=== PATIENT | female | born 1955 | race American Indian/Alaskan Native ===

== ENCOUNTER 2016-07-22 00:53 | Emergency (ER) | payer MEDICAID ==
[2016-07-22 01:23] VITALS: BP 159/60
[2016-07-22 01:56] LABS: Basophils % (Auto) 1.1 % (0.0-1.8); Eosinophils % (Auto) 2.9 % (0.0-4.3); Hematocrit 38.3 % (30.3-42.9); Hemoglobin 12.4 gm/dl (10.1-14.3); Mean Corpuscular HGB Conc 32 % (30-34); Mean Corpuscular Volume 70 fl (79-97); Platelet Count 307 K/mm3 (140-440); Red Blood Count 5.47 M/mm3 (3.65-5.03); White Blood Count 9.7 K/mm3 (4.5-11.0)
[2016-07-22 02:10] LABS: Mean Corpuscular Hemoglobin 23 pg (28-32)
[2016-07-22 02:11] LABS: INR 0.94 (0.87-1.13); Partial Thromboplastin Time 31.1 Sec. (24.2-36.6)
[2016-07-22 02:15] LABS: Anion Gap 18 mmol/L; BUN/Creatinine Ratio 11.25; Blood Urea Nitrogen 9 mg/dL (7-17); Calcium 9.1 mg/dL (8.4-10.2); Carbon Dioxide 27 mmol/L (22-30); Chloride 99.6 mmol/L (98-107); Glucose 139 mg/dL (65-100); Potassium 3.9 mmol/L (3.6-5.0); Sodium 141 mmol/L (137-145)
[2016-07-22] MEDS ORDERED: TESSALON PERLES PO ONE (10:07)
[2016-07-22] MEDS ORDERED: MUCINEX ER PO ONE (10:07)
[2016-07-22] MEDS ORDERED: MOTRIN PO ONE ×2 (10:21→10:31)
--- NOTE | 2016-07-22 10:36 | XRay Report ---
Portable chest: There are coronary bypass changes with a normal-sized heart. No vascular congestion. The lungs are clear. No significant changes compared to prior study of June 14, 2016. Impression: No acute findings.
--- NOTE | 2016-07-22 10:39 | Emergency Department Report ---
HPI - General Chief Complaint: Dyspnea/Respdistress Time Seen by Provider: 07/22/16 10:06 - HPI HPI: The patient is a 60-year-old female who presents for evaluation of cough. The patient reports 3 days of a productive cough of clear white sputum, moderate to severe, worse with lying flat and at nighttime, associated with difficulty sleeping, sneezing, runny nose, and postnasal drip. The patient denies fever, chest pain, hemoptysis, cyanosis or pallor, redness of the eyes, purulent drainage or discharge from the ears, nose, or mouth, stridor, dysphonia, rash. She states that she has not been out of the country and has no known sick contacts. ED Past Medical Hx - Past Medical History Previous Medical History?: Yes Hx Hypertension: Yes Hx CVA: No Hx Heart Attack/AMI: Yes (denies heart attack,stated BLOCKAGE) Hx Congestive Heart Failure: No Hx Diabetes: No Hx Deep Vein Thrombosis: No Hx Pulmonary Embolism: No Hx GERD: No Hx Liver Disease: No Hx Renal Disease: No Hx Sickle Cell Disease: No Hx Arthritis: No Hx Headaches / Migraines: No Hx Seizures: No Hx Kidney Stones: No Hx Psychiatric Treatment: No Hx Asthma: No Hx COPD: No Hx Tuberculosis: No Hx HIV: No Additional medical history: CAD,HIGH CHOLESTEROL - Surgical History Past Surgical History?: Yes Hx Coronary Stent: No Hx Open Heart Surgery: Yes (01/27) Hx Pacemaker: No Hx Internal Defibrillator: No Hx Cholecystectomy: No Hx Appendectomy: No Hx Breast Surgery: No Additional Surgical History: Exploratory laparotomy with left hemicolectomy . RIGHT Carotid endarterectomy,PORT to right upper chest - Social History Smoking Status: Current Some Day Smoker Substance Use Type: None - Medications Home Medications: Home Medications Medication Instructions Recorded Confirmed Last Taken Type Aspirin [Aspirin BABY CHEW TAB] 81 mg PO QDAY 04/03/15 06/25/16 06/13/16 History Metoprolol [Lopressor TAB] 25 mg PO BID 02/16/16 06/25/16 06/14/16 History Clopidogrel [Plavix] 75 mg PO QDAY #30 tablet 06/14/16 06/25/16 Unknown Rx Cyclobenzaprine HCl [Flexeril 5 MG 5 mg PO TID PRN #10 tablet 06/14/16 06/25/16 Unknown Rx TAB] Simvastatin [Zocor TAB] 20 mg PO QHS #30 tablet 06/14/16 06/25/16 Unknown Rx Vit C/Ascorbate Ca/Ascorb Sod 1 tab PO DAILY 06/14/16 06/25/16 06/13/16 History [Vitamin C 500 mg/15 ml Liquid] HYDROcodone/APAP 5-325 [[place] 1 each PO Q6HR PRN #8 tablet 06/25/16 Unknown Rx 5/325] ALBUTEROL Inhaler [ProAir HFA 2 puff IH QID PRN #1 inhalation 07/22/16 Unknown Rx Inhaler] Azithromycin [Zithromax Z-NISHANT] 250 mg PO QDAY #6 tablet 07/22/16 Unknown Rx Benzonatate [Tessalon Perles] 100 mg PO Q8HR #20 capsule 07/22/16 Unknown Rx guaiFENesin [Mucinex] 600 mg PO Q6HR #20 tab.er.12h 07/22/16 Unknown Rx ED Review of Systems ROS: Stated complaint: SOB Other details as noted in HPI Constitutional: denies: fever ENT: denies: throat or neck pain Respiratory: reports cough, shortness of breath Cardiovascular: denies: chest pain Endocrine: denies unexplained weight loss or gain Gastrointestinal: denies: abdominal pain, nausea Genitourinary: denies: dysuria Musculoskeletal: denies: leg swelling Skin: denies: rash Neurological: denies: headache Hematological/Lymphatic: denies: easy bleeding or easy bruising Psych: denies sadness or hopelessness Physical Exam - Physical Exam Vital Signs: Vital Signs 07/22/16 07/22/16 01:13 09:44 Temperature 98.3 F Pulse Rate 66 Respiratory 20 20 Rate Blood Pressure 159/60 O2 Sat by Pulse 99 98 Oximetry Physical Exam: General: well-nourished, well-developed, no acute distress, with bronchitic cough Head: Normocephalic, atraumatic Eyes: normal sclera ENT: Bilateral nasal congestion is present, Mucous membranes are pink and moist Neck: trachea midline, neck supple, No neck stiffness, no cervical adenopathy Respiratory: Breath sounds equal bilaterally, no wheezing, rales, or rhonchi Cardio: S1 and S2 present, no murmurs, rubs, gallops, capillary refill is brisk Abdomen: Normoactive bowel sounds, soft abdomen, no rigidity, no guarding or rebound tenderness Chest WALL/Back: No tenderness to palpation of the chest wall, no CVA tenderness with percussion Musc: No pitting edema Skin: No rash Neuro: no facial drooping, normal speech Psych: Normal affect ED Course Vital Signs 07/22/16 07/22/16 01:13 09:44 Temperature 98.3 F Pulse Rate 66 Respiratory 20 20 Rate Blood Pressure 159/60 O2 Sat by Pulse 99 98 Oximetry ED Medical Decision Making - Lab Data Result diagrams: 07/22/16 01:42 07/22/16 01:42 - Medical Decision Making The patient was seen and examined by myself. The patient is placed on a cardiac cath rn and continuous pulse ox. On initial evaluation, the patient was found to be in no distress. Evaluation orders were placed. EKG was negative for findings suggestive of acute cardiac infarct. The patient is given Tessalon Perles for their cough and Mucinex for nasal congestion, and Tylenol Motrin for her pain. Lab results were not concerning. Chest x-ray is negative for pulmonary vessel congestion, pleural effusion, focal consolidation, or other acute cardio pulmonary disease process. The patient was reevaluated and reported that their symptoms were markedly improved. On reexamination the patient is found to have normal respiratory rate and O2 sat on pulse oximetry, with no costal retractions or diminishment of breath sounds on auscultation. The patient is stable for discharge with outpatient follow-up. The patient is given follow-up and return instructions. The patient expressed understanding and agreed with the plan. The patient is discharged in stable condition. Critical care attestation.: If time is entered above; I have spent that time in minutes in the direct care of this critically ill patient, excluding procedure time. ED Disposition Clinical Impression: Acute viral syndrome Acute bronchitis Qualifiers: Bronchitis organism: unspecified organism Qualified Code(s): J20.9 - Acute bronchitis, unspecified Disposition: DISCHARGED TO HOME OR SELFCARE Is pt being admited?: No Does the pt Need Aspirin: No Condition: Stable Instructions: Acute Bronchitis (ED), Viral Syndrome (ED) Referrals: PRIMARY CARE, [Primary Care Provider] - 3-5 Days Time of Disposition: 10:29
== END 2016-07-22 11:00 | disposition home or self-care (01) ==
LOC: ED 00:53
DX: B34.9 Viral infection, unspecified (principal); J20.9 Acute bronchitis, unspecified; I10 Essential (primary) hypertension; I25.2 Old myocardial infarction; E78.00 Pure hypercholesterolemia, unspecified; F17.200 Nicotine dependence, unspecified, uncomplicated; I25.10 Atherosclerotic heart disease of native coronary artery without angina pectoris; Z79.82 Long term (current) use of aspirin
CPT/HCPCS: 36415; 71010; 80048; 83880; 84484; 85025; 85610; 85730; 93005; 93010; 99285

== ENCOUNTER 2016-08-24 10:10 | Outpatient (CLI) | payer MEDICAID ==
--- NOTE | 2016-08-24 15:48 | Mammography Report ---
BILATERAL DIGITAL SCREENING MAMMOGRAM with CAD : 08/24/16 10:10:00 CLINICAL: Routine screening. COMPARISON:None available. She does not remember where she last had a mammogram. FINDINGS: The breasts are heterogeneously dense, which may obscure small masses.Numerous moles are marked on each breast. A few bilateral benign calcifications. No mass, architectural distortion or suspicious calcifications. A 1.6 cm right axillary lymph node has a relatively small fatty hilum and requires additional imaging. IMPRESSION: Questionable abnormal right axillary lymph node. BI-RADS CATEGORY: 0--Needs Additional Imaging RECOMMENDATION: Recall for ultrasound of the right breast and right axilla. COMMENT: Patient follow-up letters are generated by our [employer] application.
== END 2016-08-24 10:11 | disposition home or self-care (01) ==
LOC: SPVWC 10:10
DX: Z12.31 Encounter for screening mammogram for malignant neoplasm of breast (principal)
CPT/HCPCS: 77067; G0202

== ENCOUNTER 2016-10-06 08:50 | Outpatient (CLI) | payer MEDICAID ==
--- NOTE | 2016-10-06 09:33 | Ultrasound Report ---
RIGHT BREAST ULTRASOUND: 10/06/16 08:50:00 CLINICAL: Enlarged right axillary lymph node on screening mammogram. COMPARISON: 08/24/16 screening mammogram. FINDINGS: Ultrasound of the right breast(including all four quadrants and the retroareolar area) was performed. A benign cyst at 2 o'clock 5 cm from the nipple measures 6 x 5 x 4 mm and a retroareolar benign cyst measures 6 x 5 x 4 mm. No solid mass or suspicious shadowing. Ultrasound of the right axilla demonstrated a lymph node with minimal central fat measuring 8 x 6 x 8 mm and a lymph node with a small amount of central fat measuring 9 x 6 x 8 mm. No lymph node measures as large as the lymph node on the mammogram which measured 16 mm. IMPRESSION: Benign cysts and no suspicious finding. According to the patient, she recently had a carbuncle in her right axilla which has resolved. This would explain benign reactive lymph nodes in the right axilla. The dominant lymph node has gotten smaller since the recent mammogram. BI-RADS 2 - - Benign RECOMMENDATION: Routine mammographic screening in one year.
== END 2016-10-06 08:51 | disposition home or self-care (01) ==
LOC: SPVWC 08:50
PROVIDERS: ATTEND Internal Medicine Hematology & Oncology
DX: N60.01 Solitary cyst of right breast (principal); R59.9 Enlarged lymph nodes, unspecified

== ENCOUNTER 2016-10-18 12:48 | Emergency (ER) | payer MEDICAID ==
[2016-10-18 13:48] VITALS: BP 173/75
[2016-10-18 14:26] LABS: Bilirubin,Urine NEG (Negative); Blood,Urine NEG (Negative); Ketones,Urine NEG (Negative); Leukocyte Esterase,Urine NEG (Negative); Nitrite,Urine NEG (Negative); Protein,Urine <15 mg/dL mg/dL (Negative); Urobilinogen,Urine < 2.0 mg/dL (<2.0)
[2016-10-18 14:45] LABS: WBC,Urine < 1.0 /HPF (0.0-6.0)
--- NOTE | 2016-10-21 18:06 | ED Elopement Review ---
ED Pt Elopement review - Results review Lab results: Laboratory Tests 10/18/16 13:55 Urine Color Yellow Urine Turbidity Clear Urine pH 5.0 Ur Specific [place] 1.012 Urine Protein <15 mg/dl Urine Glucose (UA) Neg Urine Ketones Neg Urine Blood Neg Urine Nitrite Neg Urine Bilirubin Neg Urine Urobilinogen < 2.0 Ur Leukocyte Esterase Neg Urine WBC (Auto) < 1.0 Urine RBC (Auto) 2.0 U Epithel Cells (Auto) < 1.0 - Call Back decision Pt Call Back Decision: Pt to F/U with PMD
== END 2016-10-18 14:00 | disposition left against medical advice (07) ==
LOC: ED 12:48
DX: M54.5 Low back pain (principal); Z53.21 Procedure and treatment not carried out due to patient leaving prior to being seen by health care provider
CPT/HCPCS: 81001

== ENCOUNTER 2017-09-29 20:39 | Inpatient (IN) | payer MEDICAID ==
[2017-09-29 21:23] LABS: Basophils # (Auto) 0.1 K/mm3 (0.0-0.1); Basophils % (Auto) 0.9 % (0.0-1.8); Eosinophils # (Auto) 0.3 K/mm3 (0.0-0.4); Eosinophils % (Auto) 2.2 % (0.0-4.3); Hematocrit 40.1 % (30.3-42.9); Hemoglobin 12.9 gm/dl (10.1-14.3); Lymphocytes # (Auto) 2.6 K/mm3 (1.2-5.4); Lymphocytes % (Auto) 19.7 % (13.4-35.0); Mean Corpuscular HGB Conc 32 % (30-34); Mean Corpuscular Volume 70 fl (79-97); Monocytes % (Auto) 7.7 % (0.0-7.3); Platelet Count 274 K/mm3 (140-440); Red Blood Count 5.74 M/mm3 (3.65-5.03); Red Cell Distribution Width 16.5 % (13.2-15.2)
[2017-09-29 21:24] LABS: Mean Corpuscular Hemoglobin 23 pg (28-32)
[2017-09-29 21:41] LABS: BUN/Creatinine Ratio 15; Blood Urea Nitrogen 12 mg/dL (7-17); Calcium 9.7 mg/dL (8.4-10.2); Hemolysis Index 3
--- NOTE | 2017-09-30 00:04 | XRay Report ---
FINAL REPORT PROCEDURE: XR CHEST ROUTINE 2V TECHNIQUE: PA and lateral chest radiographs were obtained. CPT 68531 HISTORY: chest pain COMPARISON: No prior studies are available for comparison. FINDINGS: Heart: Normal. Mediastinum/Vessels: Multiple sternal wires are present. Lungs/Pleural space: Normal. Bony thorax: No acute osseous abnormality. Other: IMPRESSION: There is no evidence of an acute cardiopulmonary process..
--- NOTE | 2017-09-30 00:22 | Emergency Department Report ---
ED Chest Pain HPI - General Chief Complaint: Chest Pain Stated Complaint: CP Time Seen by Provider: 09/30/17 00:10 Source: patient, family Mode of arrival: Ambulatory Limitations: No Limitations - History of Present Illness Initial Comments: Mrs. Prieto is a 62 yo female with hx of 3 vessel CABG 2012 who presents with chest pain. 2 weeks. Worse today. She was evaluated by her cutter operator Dr. Montes in August. Mr. Montes scheduled her for outpatient nuclear stress test . She does not take nitro because she felt that she did not need it. She took aspirin today. MD Complaint: chest pain -: week(s) (2) Onset: during rest Pain Location: left chest Pain Radiation: none Severity: moderate Severity scale (0 -10): 7 Quality: tightness, pressure, other (burning) Improves With: nothing Worsens With: nothing - Related Data Home Medications Medication Instructions Recorded Confirmed Last Taken Aspirin [Aspirin BABY CHEW TAB] 81 mg PO QDAY 04/03/15 06/25/16 06/13/16 Metoprolol [Lopressor TAB] 25 mg PO BID 02/16/16 06/25/16 06/14/16 Vit C/Ascorbate Calcium,Sodium 1 tab PO DAILY 06/14/16 06/25/16 06/13/16 [Vitamin C 500 mg/15 ml Liquid] Previous Rx's Medication Instructions Recorded Last Taken Type Clopidogrel [Plavix] 75 mg PO QDAY #30 tablet 06/14/16 Unknown Rx Cyclobenzaprine HCl [Flexeril 5 MG 5 mg PO TID PRN #10 tablet 06/14/16 Unknown Rx TAB] Simvastatin [Zocor TAB] 20 mg PO QHS #30 tablet 06/14/16 Unknown Rx HYDROcodone/APAP 5-325 [[place] 1 each PO Q6HR PRN #8 tablet 06/25/16 Unknown Rx 5/325] ALBUTEROL Inhaler [ProAir HFA 2 puff IH QID PRN #1 inhalation 07/22/16 Unknown Rx Inhaler] Azithromycin [Zithromax Z-NISHANT] 250 mg PO QDAY #6 tablet 07/22/16 Unknown Rx Benzonatate [Tessalon Perles] 100 mg PO Q8HR #20 capsule 07/22/16 Unknown Rx guaiFENesin [Mucinex] 600 mg PO Q6HR #20 tab.er.12h 07/22/16 Unknown Rx Allergies Allergy/AdvReac Type Severity Reaction Status Date / Time No Known Allergies Allergy Verified 10/18/16 13:47 Heart Score - HEART Score History: Moderately suspicious EKG: Non-specific Age: 45-65 Risk factors: > 3 risk factors or hx of atherosclerotic disease Troponin: < normal limit HEART Score: 5 ED Review of Systems ROS: Stated complaint: CP Other details as noted in HPI Comment: All other systems reviewed and negative Respiratory: denies: cough Cardiovascular: chest pain ED Past Medical Hx - Past Medical History Previous Medical History?: Yes Hx Hypertension: Yes Hx CVA: No Hx Heart Attack/AMI: Yes (denies heart attack,stated BLOCKAGE) Hx Congestive Heart Failure: No Hx Diabetes: No Hx Deep Vein Thrombosis: No Hx Pulmonary Embolism: No Hx GERD: No Hx Liver Disease: No Hx Renal Disease: No Hx Sickle Cell Disease: No Hx Arthritis: No Hx Headaches / Migraines: No Hx Seizures: No Hx Kidney Stones: No Hx Psychiatric Treatment: No Hx Asthma: No Hx COPD: No Hx Tuberculosis: No Hx HIV: No Additional medical history: CAD,HIGH CHOLESTEROL - Surgical History Past Surgical History?: Yes Hx Coronary Stent: No Hx Open Heart Surgery: Yes (01/27 TRIPLE BYPASS) Hx Pacemaker: No Hx Internal Defibrillator: No Hx Cholecystectomy: No Hx Appendectomy: No Hx Breast Surgery: No Additional Surgical History: Exploratory laparotomy with left hemicolectomy . RIGHT AND LEFT Carotid endarterectomy,PORT to right upper chest - Social History Smoking Status: Never Smoker Substance Use Type: None - Medications Home Medications: Home Medications Medication Instructions Recorded Confirmed Last Taken Type Aspirin [Aspirin BABY CHEW TAB] 81 mg PO QDAY 04/03/15 06/25/16 06/13/16 History Metoprolol [Lopressor TAB] 25 mg PO BID 02/16/16 06/25/16 06/14/16 History Clopidogrel [Plavix] 75 mg PO QDAY #30 tablet 06/14/16 06/25/16 Unknown Rx Cyclobenzaprine HCl [Flexeril 5 MG 5 mg PO TID PRN #10 tablet 06/14/16 06/25/16 Unknown Rx TAB] Simvastatin [Zocor TAB] 20 mg PO QHS #30 tablet 06/14/16 06/25/16 Unknown Rx Vit C/Ascorbate Calcium,Sodium 1 tab PO DAILY 06/14/16 06/25/16 06/13/16 History [Vitamin C 500 mg/15 ml Liquid] HYDROcodone/APAP 5-325 [[place] 1 each PO Q6HR PRN #8 tablet 06/25/16 Unknown Rx 5/325] ALBUTEROL Inhaler [ProAir HFA 2 puff IH QID PRN #1 inhalation 07/22/16 Unknown Rx Inhaler] Azithromycin [Zithromax Z-NISHANT] 250 mg PO QDAY #6 tablet 07/22/16 Unknown Rx Benzonatate [Tessalon Perles] 100 mg PO Q8HR #20 capsule 07/22/16 Unknown Rx guaiFENesin [Mucinex] 600 mg PO Q6HR #20 tab.er.12h 07/22/16 Unknown Rx ED Physical Exam - General Limitations: No Limitations General appearance: alert, in no apparent distress - Head Head exam: Present: atraumatic, normocephalic - Eye Eye exam: Present: normal appearance - ENT ENT exam: Present: normal orophraynx, mucous membranes moist - Neck Neck exam: Present: normal inspection. Absent: tenderness, meningismus - Respiratory Respiratory exam: Present: normal lung sounds bilaterally. Absent: respiratory distress, wheezes, rales, rhonchi - Cardiovascular Cardiovascular Exam: Present: regular rate, normal rhythm, normal heart sounds. Absent: systolic murmur, diastolic murmur, rubs, gallop - GI/Abdominal GI/Abdominal exam: Present: soft, normal bowel sounds. Absent: distended, tenderness, guarding, rebound - Extremities Exam Extremities exam: Present: normal inspection - Back Exam Back exam: Present: normal inspection - Neurological Exam Neurological exam: Present: alert, oriented X3 - Psychiatric Psychiatric exam: Present: normal affect, normal mood - Skin Skin exam: Present: warm, dry, intact, normal color. Absent: rash ED Course Vital Signs 09/29/17 09/30/17 09/30/17 21:02 00:07 00:25 Temperature 98.6 F 98.0 F Pulse Rate 59 L 58 L Respiratory 17 Rate Blood Pressure 215/81 Blood Pressure 89/46 [Left] O2 Sat by Pulse 98 Oximetry OLIVA score - Oliva Score Age > 65: (0) No Aspirin use within the Past 7 Days: (1) Yes 3 or more CAD Risk Factors: (1) Yes 2 or more Angina events in past 24 hrs: (0) No Known CAD with more than 50% Stenosis: (0) No Elevated Cardiac Markers: (0) No ST Deviation Greater than 0.5mm: (0) No OLIVA Score: 2 ED Medical Decision Making - Lab Data Result diagrams: 09/29/17 21:15 09/29/17 21:15 Laboratory Results - last 24 hr 09/29/17 09/29/17 09/30/17 21:15 21:15 00:05 WBC 13.0 H RBC 5.74 H Hgb 12.9 Hct 40.1 MCV 70 L MCH 23 L MCHC 32 RDW 16.5 H Plt Count 274 Lymph % (Auto) 19.7 [place] % (Auto) 7.7 H Eos % (Auto) 2.2 Baso % (Auto) 0.9 Lymph # 2.6 [place] # 1.0 H Eos # 0.3 Baso # 0.1 Seg Neutrophils % 69.5 Seg Neutrophils # 9.0 H Sodium 139 Potassium 4.1 Chloride 95.4 L Carbon Dioxide 28 Anion Gap 20 BUN 12 Creatinine 0.8 Estimated GFR > 60 BUN/Creatinine Ratio 15 Glucose 132 H Calcium 9.7 Troponin T < 0.010 < 0.010 Vital Signs - 24 hr 09/29/17 09/30/17 09/30/17 21:02 00:07 00:25 Temperature 98.6 F 98.0 F Pulse Rate 59 L 58 L Respiratory 17 Rate Blood Pressure 215/81 Blood Pressure 89/46 [Left] O2 Sat by Pulse 98 Oximetry - Medical Decision Making Ms. Prieto presents with worsening chest pain for past 2 weeks. Hx of CAD s/p CABG. Admitted to hospitalist service for ACS. patient has asymptomatic mild hypotension in Ed. She took antihypertensive just prior to arrival to ED. Critical care attestation.: If time is entered above; I have spent that time in minutes in the direct care of this critically ill patient, excluding procedure time. ED Disposition Clinical Impression: ACS (acute coronary syndrome) Disposition: OP ADMIT IP TO THIS HOSP Is pt being admited?: Yes Does the pt Need Aspirin: No Condition: Stable Time of Disposition: 01:14
[2017-09-30] MEDS ORDERED: SODIUM CHLORIDE FLUSH SYRINGE 10 ML IV PRN (01:57)
[2017-09-30] MEDS ORDERED: TYLENOL PO PRN (01:57)
[2017-09-30] MEDS ORDERED: ZOFRAN IV PRN (01:57)
--- NOTE | 2017-09-30 02:02 | History and Physical Report ---
History of Present Illness Date of examination: 09/30/17 History of present illness: 62-year-old woman with a history of hypertension, coronary artery disease and hyperlipidemia was brought to the emergency room with complaints of chest pain for 2 weeks. Chest pain is in the left substernal area which she describes as a sharp, intermittent in nature lasting for a 1 hour, no radiation, intensity 7 /10. Denies nausea vomiting, diaphoresis and palpitation, shortness of breath. Patient is scheduled for a stress test on October 12 by the facilities specialist Review Of Systems: Constitutional: no weight loss Ears, eyes, nose, mouth and throat: no nasal congestion, no nasal discharge, no sinus pressure, blurry vision, diplopia Neck: No neck pain or rigidity. Cardiovascular: no chest pain, orthopnea, palpitations Respiratory: + shortness of breath, cough Gastrointestinal: abdominal pain, hematochezia Genitourinary : no dysuria, frequency , hematuria Musculoskeletal: no muscle ache Integumentary: no rash, no pruritis Neurological: no parathesias, focal weakness Endocrine: no cold or heat intolerance, no polyuria or polydipsia Hematologic/Lymphatic: no easy bruising, no easy bleeding, no gland swelling Allergic/Immunologic: no urticaria, no angioedema. PAST SURGICAL HISTORY: CABG, left CEA SOCIAL HISTORY: 1/3 pack of cigarettes a day, no alcohol or drugs FAMILY HISTORY: Coronary artery disease Medications and Allergies Allergies Allergy/AdvReac Type Severity Reaction Status Date / Time No Known Allergies Allergy Verified 10/18/16 13:47 Home Medications Medication Instructions Recorded Confirmed Last Taken Type Aspirin [Aspirin BABY CHEW TAB] 81 mg PO QDAY 04/03/15 06/25/16 06/13/16 History Metoprolol [Lopressor TAB] 25 mg PO BID 02/16/16 06/25/16 06/14/16 History Clopidogrel [Plavix] 75 mg PO QDAY #30 tablet 06/14/16 06/25/16 Unknown Rx Cyclobenzaprine HCl [Flexeril 5 MG 5 mg PO TID PRN #10 tablet 06/14/16 06/25/16 Unknown Rx TAB] Simvastatin [Zocor TAB] 20 mg PO QHS #30 tablet 06/14/16 06/25/16 Unknown Rx Vit C/Ascorbate Calcium,Sodium 1 tab PO DAILY 06/14/16 06/25/16 06/13/16 History [Vitamin C 500 mg/15 ml Liquid] HYDROcodone/APAP 5-325 [[place] 1 each PO Q6HR PRN #8 tablet 06/25/16 Unknown Rx 5/325] ALBUTEROL Inhaler [ProAir HFA 2 puff IH QID PRN #1 inhalation 07/22/16 Unknown Rx Inhaler] Azithromycin [Zithromax Z-NISHANT] 250 mg PO QDAY #6 tablet 07/22/16 Unknown Rx Benzonatate [Tessalon Perles] 100 mg PO Q8HR #20 capsule 07/22/16 Unknown Rx guaiFENesin [Mucinex] 600 mg PO Q6HR #20 tab.er.12h 07/22/16 Unknown Rx Active Meds: Active Medications Acetaminophen (Tylenol) 650 mg PO Q4H PRN PRN Reason: Pain MILD(1-3)/Fever >100.5/LEONG Enoxaparin Sodium (Lovenox) 30 mg SUB-Q QDAY YOANNA Morphine Sulfate (Morphine) 2 mg IV Q4H PRN PRN Reason: Pain, Moderate (4-6) Ondansetron HCl (Zofran) 4 mg IV Q8H PRN PRN Reason: Nausea And Vomiting Sodium Chloride (Sodium Chloride Flush Syringe 10 Ml) 10 ml IV BID YOANNA Sodium Chloride (Sodium Chloride Flush Syringe 10 Ml) 10 ml IV PRN PRN PRN Reason: LINE FLUSH Exam - Physical Exam Narrative exam: Gen. appearance: Patient lying in bed, no apparent distress HEENT: Normocephalic, atraumatic, pupils equally round and reactive to light, extraocular movement intact, and no sclericterus,. No JVD or thyromegaly or nodule,neck supple, no carotid bruit ,mucous membranes moist, no exudate or erythema Heart: S1, S2, regular rate and rhythm Lungs: Clear to auscultation bilaterally, breathing comfortable Abdomen: Positive bowel sounds, nontender, nondistended, no organomegaly Extremity: No edema, cyanosis, clubbing Skin: No rash, nodules, warm, dry Neuro: Oriented 3, cranial nerves II-12 intact, speech is fluent, motor and sensory intact - Constitutional Vitals: Temp Pulse Resp BP Pulse Ox 98.0 F 58 L 17 89/46 98 09/30/17 00:07 09/30/17 00:25 09/29/17 21:02 09/30/17 00:25 09/29/17 21:02 Results - Labs CBC & Chem 7: 09/29/17 21:15 09/29/17 21:15 Labs: Abnormal lab results 09/29/17 09/29/17 Range/Units 21:15 21:15 WBC 13.0 H (4.5-11.0) K/mm3 RBC 5.74 H (3.65-5.03) M/mm3 MCV 70 L (79-97) fl MCH 23 L (28-32) pg RDW 16.5 H (13.2-15.2) % [place] % (Auto) 7.7 H (0.0-7.3) % [place] # 1.0 H (0.0-0.8) K/mm3 Seg Neutrophils # 9.0 H (1.8-7.7) K/mm3 Chloride 95.4 L (98-107) mmol/L Glucose 132 H (65-100) mg/dL - Imaging and Cardiology EKG: image reviewed Chest x-ray: image reviewed Assessment and Plan Assessment Unstable Angina Coronary artery disease Hypertension Hyperlipidemia Plan Admit to to medicine Check cardiac enzymes, stress test, consult cardiology DVT prophylaxis
[2017-09-30] MEDS ORDERED: ALUM-MAG HYDROX-SIMETH 200-200-20MG/5ML PO ONE (02:05)
[2017-09-30] MEDS ORDERED: MORPHINE IV PRN (02:10)
[2017-09-30 02:39] LABS: Creatine Kinase MB 2.3 ng/mL (0.0-4.0)
[2017-09-30 08:10] LABS: Creatine Kinase MB 2.2 ng/mL (0.0-4.0)
[2017-09-30] MEDS ORDERED: LEXISCAN IV ONE ×2 (09:21→09:26)
[2017-09-30] MEDS ORDERED: LOVENOX SUB-Q SCH ×2 (10:00)
[2017-09-30] MEDS ORDERED: SODIUM CHLORIDE FLUSH SYRINGE 10 ML IV SCH (10:00)
--- NOTE | 2017-09-30 11:42 | Consultation ---
History of Present Illness Consult date: 09/30/17 Requesting physician: LIN BROWN Consult reason: chest pain History of present illness: The pt is a 62 YO female with a past medical history significant for CAD s/p CABG x4 in 01/2013, carotid artery disease s/p bilateral CEA, HTN, HLP, GIB, tobacco use. She is followed in our office by Dr. Becki Montes. She presented with c /o chest pain for the past 2 weeks. She describes her chest pain as a burning pain which is present under her left breast. The pain is nonexertional and nonradiating. The pain is sometimes relieved by Tums. She denies any SOB, palpitations, n/v, diaphoresis, dizziness or syncope. LHC 05/2013 showed patent bypass grafts. Echo done 03/2016 showed EF 55-60%. Lexiscan MPI stress test done 03/2016 was negative for significant ischemia. Past History Past Medical History: CAD, hypertension, hyperlipidemia, other (carotid artery disease) Past Surgical History: CABG, Other (bilateral CEA) Social history: smoking. denies: alcohol abuse, prescription drug abuse Medications and Allergies Allergies Allergy/AdvReac Type Severity Reaction Status Date / Time No Known Allergies Allergy Verified 10/18/16 13:47 Home Medications Medication Instructions Recorded Confirmed Last Taken Type Aspirin [Aspirin BABY CHEW TAB] 81 mg PO QDAY 04/03/15 06/25/16 06/13/16 History Metoprolol [Lopressor TAB] 25 mg PO BID 02/16/16 06/25/16 06/14/16 History Clopidogrel [Plavix] 75 mg PO QDAY #30 tablet 06/14/16 06/25/16 Unknown Rx Cyclobenzaprine HCl [Flexeril 5 MG 5 mg PO TID PRN #10 tablet 06/14/16 06/25/16 Unknown Rx TAB] Simvastatin [Zocor TAB] 20 mg PO QHS #30 tablet 06/14/16 06/25/16 Unknown Rx Vit C/Ascorbate Calcium,Sodium 1 tab PO DAILY 06/14/16 06/25/16 06/13/16 History [Vitamin C 500 mg/15 ml Liquid] HYDROcodone/APAP 5-325 [[place] 1 each PO Q6HR PRN #8 tablet 06/25/16 Unknown Rx 5/325] ALBUTEROL Inhaler [ProAir HFA 2 puff IH QID PRN #1 inhalation 07/22/16 Unknown Rx Inhaler] Azithromycin [Zithromax Z-NISHANT] 250 mg PO QDAY #6 tablet 07/22/16 Unknown Rx Benzonatate [Tessalon Perles] 100 mg PO Q8HR #20 capsule 07/22/16 Unknown Rx guaiFENesin [Mucinex] 600 mg PO Q6HR #20 tab.er.12h 07/22/16 Unknown Rx Active Meds: Active Medications Acetaminophen (Tylenol) 650 mg PO Q4H PRN PRN Reason: Pain MILD(1-3)/Fever >100.5/LEONG Enoxaparin Sodium (Lovenox) 40 mg SUB-Q QDAY@1000 YOANNA Morphine Sulfate (Morphine) 2 mg IV Q4H PRN PRN Reason: Pain, Moderate (4-6) Ondansetron HCl (Zofran) 4 mg IV Q8H PRN PRN Reason: Nausea And Vomiting Sodium Chloride (Sodium Chloride Flush Syringe 10 Ml) 10 ml IV BID YOANNA Sodium Chloride (Sodium Chloride Flush Syringe 10 Ml) 10 ml IV PRN PRN PRN Reason: LINE FLUSH Review of Systems Constitutional: no weight loss, no weight gain, no fever, no chills, no sweats Ears, nose, mouth and throat: no ear pain, no nose pain, no sinus pressure, no sinus pain Cardiovascular: chest pain, no orthopnea, no palpitations, no rapid/irregular heart beat, no edema, no syncope, no lightheadedness, no shortness of breath, no dyspnea on exertion Respiratory: no cough, no shortness of breath, no dyspnea on exertion, no congestion, no wheezing, no pain on inspiration Gastrointestinal: no abdominal pain, no nausea, no vomiting, no diarrhea, no constipation, no change in bowel habits Genitourinary Female: no pelvic pain, no flank pain, no dysuria, no urinary frequency, no urgency Musculoskeletal: no neck stiffness, no neck pain, no shooting arm pain, no arm numbness/tingling, no low back pain, no shooting leg pain, no leg numbness/ tingling, no redness of joints Integumentary: no rash, no pruritis, no redness, no sores, no wounds Neurological: no head injury, no paralysis, no weakness, no parathesias, no numbness, no tingling, no seizures, no syncope Psychiatric: no anxiety Endocrine: no cold intolerance, no heat intolerance Hematologic/Lymphatic: no easy bruising, no easy bleeding, no lymphadenopathy Allergic/Immunologic: no urticaria, no wheezing, no persistent infections Physical Examination Vital Signs Temp Pulse Resp BP Pulse Ox 98.6 F 59 L 17 215/81 98 09/29/17 21:02 09/29/17 21:02 09/29/17 21:02 09/29/17 21:02 09/29/17 21:02 General appearance: no acute distress HEENT: Positive: PERRL, Normocephaly, Mucus Membranes Moist Neck: Positive: neck supple, trachea midline Cardiac: Positive: Reg Rate and Rhythm, S1/S2 Lungs: Positive: clear to auscultation Neuro: Positive: Grossly Intact, Cranial Nerve 2-12 Intact Abdomen: Positive: Soft. Negative: Tender Skin: Positive: Clear. Negative: Rash, Wound Musculoskeletal: No Fluid Collection, No Pain, Normal Range of Motion Extremities: Absent: edema Results 09/29/17 21:15 09/29/17 21:15 Cardiac Enzymes 09/30/17 09/30/17 Range/Units 02:16 07:20 CK-MB (CK-2) 2.3 2.2 (0.0-4.0) ng/mL CBC 09/29/17 Range/Units 21:15 WBC 13.0 H (4.5-11.0) K/mm3 RBC 5.74 H (3.65-5.03) M/mm3 Hgb 12.9 (10.1-14.3) gm/dl Hct 40.1 (30.3-42.9) % Plt Count 274 (140-440) K/mm3 Lymph # 2.6 (1.2-5.4) K/mm3 [place] # 1.0 H (0.0-0.8) K/mm3 Eos # 0.3 (0.0-0.4) K/mm3 Baso # 0.1 (0.0-0.1) K/mm3 Comprehensive Metabolic Panel 09/29/17 Range/Units 21:15 Sodium 139 (137-145) mmol/L Potassium 4.1 (3.6-5.0) mmol/L Chloride 95.4 L (98-107) mmol/L Carbon Dioxide 28 (22-30) mmol/L BUN 12 (7-17) mg/dL Creatinine 0.8 (0.7-1.2) mg/dL Glucose 132 H (65-100) mg/dL Calcium 9.7 (8.4-10.2) mg/dL - Imaging and Cardiology Echo: report reviewed ( 03/2016 showed EF 55-60%. ) Cardiac cath: report reviewed (05/2013 showed patent bypass grafts. ) EKG: report reviewed, image reviewed EKG interpretations - Telemetry EKG Rhythm: Sinus Rhythm - EKG Sinus rhythms and dysrhythmias: sinus rhythm Repolarization changes or abnormalities: ST or T wave suggestive of ischemia ( anterolateral t-wave inversion) Assessment and Plan Assessment: Chest pain, atypical - [place] negative for AMI; ECG with NAF CAD s/p CABG x4 01/2013 HTN HLP Carotid artery disease s/p bilateral CEA H/o GIB Tobacco use - cessation encouraged Plan: S/p lexiscan MPI stress test this AM which was negative for ischemia, EF 75%. Echo with NAF. Obtain DDimer. Pending DDimer is WNL, pt may discharge home from cardiology standpoint. Follow up in our [place] office with Dr. Becki Montes on 10/14/2017 @ 3:30PM. The patient has been seen in conjunction with Dr. Gallagher who agrees with the assessment and plan of care.
--- NOTE | 2017-09-30 16:17 | Discharge Summary ---
Providers - Providers Date of Admission: 09/30/17 01:57 Date of discharge: 09/30/17 Attending physician: JOHNNY CASILLAS 09/30/17 01:57 Consult to Physician [CONS] Routine Comment: Consulting Provider: RUTHY YORK Physician Instructions: Reason For Exam: Primary care physician: ITZEL KEMP Hospitalization Reason for admission: atypical chest pain Condition: Stable Pertinent studies: Chest x-ray; no acute cardiopulmonary abnormality Exercise stress test; a definitive reversible ischemia, LVEF 72% Echocardiogram; patient has 50-60% Hospital course: 62-year-old female patient with significant history of hypertension coronary artery disease dyslipidemia who was admitted through emergency room with chest pain of 2 days' duration The patient was managed symptomatically evaluated by cardiology later underwent stress test which was negative for reversible ischemia and preserved left ventricular function Patient was symptomatically managed blood pressures closely monitored medications optimized Today patient is comfortable no new complaints vital signs are stable [id number] evaluation physical examination done by me that his chest is unremarkable Clear by cardiology, follow with primary care physician and cardiology per schedule Patient is hemodynamically and clinically stable at discharge Discharge diagnosis; --Atypical chest pain; probably secondary to gastroesophageal reflux disease Negative stress test --Gastroesophageal reflux disease --Hypertension --CAD status post CABG --Dyslipidemia --Carotid artery disease Disposition: DC- TO HOME OR SELFCARE Time spent for discharge: 31 min Core Measure Documentation - Palliative Care Palliative Care/ Comfort Measures: Not Applicable - Core Measures Any of the following diagnoses?: none Exam - Constitutional Vitals: Temp Pulse Resp BP Pulse Ox 98.3 F 59 L 18 124/57 98 09/30/17 14:06 09/30/17 14:06 09/30/17 14:06 09/30/17 14:06 09/30/17 14:06 General appearance: Present: no acute distress, well-nourished - EENT Eyes: Present: PERRL, EOM intact - Neck Neck: Present: supple, normal ROM - Respiratory Respiratory effort: normal Respiratory: negative: rales, rhonchi, wheezing - Cardiovascular Rhythm: regular Heart Sounds: Present: S1 & S2 - Extremities Extremities: no ischemia, pulses intact Peripheral Pulses: within normal limits - Abdominal General gastrointestinal: Present: soft, non-tender, non-distended - Integumentary Integumentary: Present: clear, warm - Musculoskeletal Musculoskeletal: strength equal bilaterally - Psychiatric Psychiatric: appropriate mood/affect, cooperative - Neurologic Neurologic: CNII-XII intact, moves all extremities Plan Activity: no restrictions Diet: other (cardiac diet) Special Instructions: smoking cessation Additional Instructions: Follow up [facility] cardiology [place] office with Dr. Becki York on 10/14/2017 @ 3:30PM. Follow up with: ITZEL KEMP MD [Primary Care Provider] - 7 Days RUTHY YORK MD [Staff Physician] - 10/14/17 Prescriptions: Famotidine [Pepcid] 20 mg PO BID #60 tablet
--- NOTE | 2017-09-30 16:39 | Treadmill Report ---
The resting images with technetium scan showed a homogeneous radioisotope activity except for a very small area of diminished radioisotope uptake in the mid anterior wall. On post-Lexiscan, the repeat images revealed similar distribution noted on resting scan. On gated scan, ejection fraction was noted to be 72% without any segmental motion abnormality. IMPRESSION: 1. This test is negative for ischemia. 2. Good left ventricular systolic function with EF of 72%. [facility]# [id number] SERGIO/EMERALD HAM
[2017-09-30 16:52] VITALS: BP 120/52
== END 2017-09-30 17:47 | disposition home or self-care (01) | DRG 392 ==
LOC: ED 20:39 → 4A 09-30 01:57
PROVIDERS: ADMIT Internal Medicine; ATTEND Internal Medicine
DX: K21.9 Gastro-esophageal reflux disease without esophagitis (principal); E78.5 Hyperlipidemia, unspecified; I10 Essential (primary) hypertension; Z95.1 Presence of aortocoronary bypass graft; Z79.82 Long term (current) use of aspirin; I25.10 Atherosclerotic heart disease of native coronary artery without angina pectoris; E78.00 Pure hypercholesterolemia, unspecified; Z82.49 Family history of ischemic heart disease and other diseases of the circulatory system; F17.200 Nicotine dependence, unspecified, uncomplicated; I65.29 Occlusion and stenosis of unspecified carotid artery
CPT/HCPCS: 36415; 71046; 78452; 80048; 82550; 82553; 84484; 85025; 85379; 93005; 93010; 93017; 93306; 96372; 96374; A9502; J1650; J2785

== ENCOUNTER 2017-10-24 12:10 | Emergency (ER) | payer MEDICAID ==
[2017-10-24 12:37] VITALS: BP 157/46
--- NOTE | 2017-10-24 15:46 | Emergency Department Report ---
Blank Doc - Documentation Documentation: 62-year-old female complaining of cough and cold symptoms since last week. Cough is productive and rattles in her chest but will not come up despite taken Mucinex. Patient complaining of intermittent wheezing episodes and currently uses an inhaler as needed. She denies fever. Taking Anjelica-D as well to help with allergies Focused physical exam Lungs clear to auscultation Heart regular rate and rhythm no Signs of edema Orders Chest x-ray Patient likely has bronchitis. Will be further evaluated by mid-level
--- NOTE | 2017-10-24 17:46 | XRay Report ---
FINAL REPORT PROCEDURE: XR CHEST ROUTINE 2V TECHNIQUE: PA and lateral chest radiographs were obtained. CPT 05101 HISTORY: Wheezing, cough. COMPARISON: Chest radiograph dated 09/29/2017. FINDINGS: Heart: Normal. Mediastinum/Vessels: Normal. Lungs/Pleural space: Slight worsening of perihilar indistinctness. Minimal thickening of the right fissure. Bony thorax: Ostial markers. Sternotomy. Mild osteopenia and degenerative changes of the spine. Clips in the soft tissues of the right neck. Other: IMPRESSION: Slight worsening of perihilar indistinctness with minimal thickening of the right fissure, consider mild volume overload/congestive heart failure.
[2017-10-24] MEDS ORDERED: ROCEPHIN IM ONE (18:17)
[2017-10-24] MEDS ORDERED: XYLOCAINE 1% MPF 5 mL INFILTRATI ONE (18:17)
--- NOTE | 2017-10-24 18:17 | Emergency Department Report ---
Upper Respiratory HPI - HPI Chief Complaint: Upper Respiratory Infection Stated Complaint: FLU LIKE SYMPTOMS Time Seen by Provider: 10/24/17 15:38 Duration: 2 weeks URI Symptoms: Rhinorrhea: No, Sore Throat: No, Ear Pain: No, Cough: Yes ( productive), Shortness of Breath: No, Sick Contacts: No, Unable to Take Fluids: No, Urine Output Abnormal: No, Listless Behavior: No Other History: This is a 62-year-old female nontoxic, well nourished in appearance, no acute signs of distress presents to the ED with c/o of productive cough and wheeaing x2 weeks. Patient describes productive cough as yellow mucus production. Patient agrees to sick contact with grandson which has been diagnosed with PNA. Patient denies any recent travels, long car, recent hospital stays. Patient denies any calf pain or calf tenderness. Patient denies any chest pain, short of breath, fever, chills, nausea, vomiting , hemoptysis, numbness, tingling, headache or stiff neck. Patient denies orthopena or paroxysmal nocturnal dyspnea. Patient denies any allergies. PMH includes headaches, hypertension, CAD, high cholesterol, bronchitis, triple bypass. She had a normal echocardiogram and a stress test last month by a rivet tester and has a rivet tester appointment this Tuesday. - Home Meds and Allergies Home Medications: Home Medications Medication Instructions Recorded Confirmed Last Taken Aspirin [Aspirin BABY CHEW TAB] 81 mg PO QDAY 04/03/15 06/25/16 06/13/16 Metoprolol [Lopressor TAB] 25 mg PO BID 02/16/16 06/25/16 06/14/16 Vit C/Ascorbate Calcium,Sodium 1 tab PO DAILY 06/14/16 06/25/16 06/13/16 [Vitamin C 500 mg/15 ml Liquid] Previous Rx's Medication Instructions Recorded Last Taken Type Clopidogrel [Plavix] 75 mg PO QDAY #30 tablet 06/14/16 Unknown Rx Cyclobenzaprine HCl [Flexeril 5 MG 5 mg PO TID PRN #10 tablet 06/14/16 Unknown Rx TAB] Simvastatin [Zocor TAB] 20 mg PO QHS #30 tablet 06/14/16 Unknown Rx HYDROcodone/APAP 5-325 [[place] 1 each PO Q6HR PRN #8 tablet 06/25/16 Unknown Rx 5-325 mg TAB] ALBUTEROL Inhaler [ProAir HFA 2 puff IH QID PRN #1 inhalation 07/22/16 Unknown Rx Inhaler] Azithromycin [Zithromax Z-NISHANT] 250 mg PO QDAY #6 tablet 07/22/16 Unknown Rx Benzonatate [Tessalon Perles] 100 mg PO Q8HR #20 capsule 07/22/16 Unknown Rx guaiFENesin [Mucinex] 600 mg PO Q6HR #20 tab.er.12h 07/22/16 Unknown Rx Famotidine [Pepcid] 20 mg PO BID #60 tablet 09/30/17 Unknown Rx ALBUTEROL Inhaler [ProAir HFA 2 puff IH QID PRN #1 inhalation 10/24/17 Unknown Rx Inhaler] Azithromycin [Zithromax Z-NISHANT] 250 mg PO DAILY #6 tablet 10/24/17 Unknown Rx Prednisone [predniSONE 10 mg 10 mg PO .TAPER #1 tab.ds.pk 10/24/17 Unknown Rx (6-Day Pack, 21 Tabs)] Allergies/Adverse Reactions: Allergies Allergy/AdvReac Type Severity Reaction Status Date / Time No Known Allergies Allergy Verified 10/18/16 13:47 ED Review of Systems ROS: Stated complaint: FLU LIKE SYMPTOMS Other details as noted in HPI Constitutional: denies: chills, fever Eyes: denies: eye pain, eye discharge, vision change ENT: denies: ear pain, throat pain Respiratory: cough, wheezing. denies: shortness of breath Cardiovascular: denies: chest pain, palpitations Endocrine: no symptoms reported Gastrointestinal: denies: abdominal pain, nausea, diarrhea Genitourinary: denies: urgency, dysuria, discharge Musculoskeletal: denies: back pain, joint swelling, arthralgia Skin: denies: rash, lesions Neurological: denies: headache, weakness, paresthesias Psychiatric: denies: anxiety, depression Hematological/Lymphatic: denies: easy bleeding, easy bruising ED Past Medical Hx - Past Medical History Previous Medical History?: Yes Hx Hypertension: Yes Hx CVA: No Hx Heart Attack/AMI: Yes (denies heart attack,stated BLOCKAGE) Hx Congestive Heart Failure: No Hx Diabetes: No Hx Deep Vein Thrombosis: No Hx Pulmonary Embolism: No Hx GERD: No Hx Liver Disease: No Hx Renal Disease: No Hx Sickle Cell Disease: No Hx Arthritis: No Hx Headaches / Migraines: No Hx Seizures: No Hx Kidney Stones: No Hx Psychiatric Treatment: No Hx Asthma: No Hx COPD: No Hx Tuberculosis: No Hx HIV: No Additional medical history: CAD,HIGH CHOLESTEROL, Bronchitis - Surgical History Past Surgical History?: Yes Hx Coronary Stent: No Hx Open Heart Surgery: Yes (01/27 TRIPLE BYPASS) Hx Pacemaker: No Hx Internal Defibrillator: No Hx Cholecystectomy: No Hx Appendectomy: No Hx Breast Surgery: No Additional Surgical History: Exploratory laparotomy with left hemicolectomy . RIGHT AND LEFT Carotid endarterectomy,PORT to right upper chest - Social History Smoking Status: Current Every Day Smoker Substance Use Type: Prescribed - Medications Home Medications: Home Medications Medication Instructions Recorded Confirmed Last Taken Type Aspirin [Aspirin BABY CHEW TAB] 81 mg PO QDAY 04/03/15 06/25/16 06/13/16 History Metoprolol [Lopressor TAB] 25 mg PO BID 02/16/16 06/25/16 06/14/16 History Clopidogrel [Plavix] 75 mg PO QDAY #30 tablet 06/14/16 06/25/16 Unknown Rx Cyclobenzaprine HCl [Flexeril 5 MG 5 mg PO TID PRN #10 tablet 06/14/16 06/25/16 Unknown Rx TAB] Simvastatin [Zocor TAB] 20 mg PO QHS #30 tablet 06/14/16 06/25/16 Unknown Rx Vit C/Ascorbate Calcium,Sodium 1 tab PO DAILY 06/14/16 06/25/16 06/13/16 History [Vitamin C 500 mg/15 ml Liquid] HYDROcodone/APAP 5-325 [[place] 1 each PO Q6HR PRN #8 tablet 06/25/16 Unknown Rx 5-325 mg TAB] ALBUTEROL Inhaler [ProAir HFA 2 puff IH QID PRN #1 inhalation 07/22/16 Unknown Rx Inhaler] Azithromycin [Zithromax Z-NISHANT] 250 mg PO QDAY #6 tablet 07/22/16 Unknown Rx Benzonatate [Tessalon Perles] 100 mg PO Q8HR #20 capsule 07/22/16 Unknown Rx guaiFENesin [Mucinex] 600 mg PO Q6HR #20 tab.er.12h 07/22/16 Unknown Rx Famotidine [Pepcid] 20 mg PO BID #60 tablet 09/30/17 Unknown Rx ALBUTEROL Inhaler [ProAir HFA 2 puff IH QID PRN #1 inhalation 10/24/17 Unknown Rx Inhaler] Azithromycin [Zithromax Z-NISHANT] 250 mg PO DAILY #6 tablet 10/24/17 Unknown Rx Prednisone [predniSONE 10 mg 10 mg PO .TAPER #1 tab.ds.pk 10/24/17 Unknown Rx (6-Day Pack, 21 Tabs)] ED Bronchiolitis Physical Exam - Exam General: Vital signs noted. No distress. Alert and acting appropriately. GENERAL: The patient is a well-developed, well-nourished in no apparent distress. Patient is alert and acting appropriately for age. Alert and oriented 3, no apparent distress, normal gait, atraumatic. HEENT: Head is normocephalic and atraumatic. PERRL, Extraocular muscles are intact. Pupils are equal, round, and reactive to light and accommodation. Nares appeared normal. Mouth is well hydrated and without lesions. Mucous membranes are moist. Posterior pharynx clear of any exudate or lesions. Mouth is well hydrated and without lesions. Tonsils not erythematous or swollen. Uvula midline. Tongue elevated. Mucous members are moist. Posterior pharynx clear, no exudate or lesions. Patent airways. NECK: Supple. No carotid bruits. No lymphadenopathy or thyromegaly.nontender. No meningitic signs are noted. LUNGS: Clear to auscultation. Non labor breathing. No intercostal retractions. Symmetrical with respiration, no wheezing, no rales, or crackles. HEART: Regular rate and rhythm without murmur, rubs or gallops. No reproducible. S1, S2 present, regular rate and rhythm without murmur, no rubs, no gallops. ABDOMEN: Soft, nontender, and nondistended. Positive bowel sounds. No hepatosplenomegaly was noted. No guarding or rebound tenderness, negative epigastric bruit. Negative psoas sign, negative ramires sign, negative McBurneys sign EXTREMITIES: Without any cyanosis, clubbing, rash, lesions or edema. Peripheral pulses intact. Capillary refill less than 2 seconds. Full range of motion bilaterally. NEUROLOGIC: Cranial nerves II through XII are grossly intact. Alert and oriented x 3. Normal gait. Symmetrical strength and sensation. Reflexes 2+ throughout. Cerebellar testing normal. GCS score of 15. PSYCHIATRIC: Normal affect with no suicidal or homicidal ideations. HEENT: No Pharyngeal Erythema, No Conjuctival Injection, No Dry Mucous Membranes , No Rhinorrhea Ear: Neither TM Bulge, Neither TM Erythema, Neither EAC Discharge Neck: No Adenopathy, No Rigidity Lungs: Yes Clear Lung Sounds, Yes Good Air Exchange, No Wheezes, No Stridor, No Cough, No Nasal Flaring, No Retractions, No Use of Accessory Muscles Heart: Yes Regular, No Murmur Abdomen: Yes Normal Bowel Sounds, No Tenderness, No Peritoneal Signs Skin: No Rash, No Eczema Neurologic: Alert and oriented, no deficits. Musculoskeletal: Unremarkable. ED Physical Exam - General Limitations: No Limitations ED Course Vital Signs 10/24/17 12:33 Temperature 98.4 F Pulse Rate 52 L Respiratory 18 Rate Blood Pressure 157/46 O2 Sat by Pulse 97 Oximetry - Reevaluation(s) Reevaluation #1: 10/24/17 18:26 Patient is speaking in full sentences with no signs of distress noted. - Consultations Consultation #1: 10/24/17 18:26 Patient has been consulted with Dr. Phillip about patient history, physical exam, and labs/xray report and examined and screened patient and agrees to ED plan of care and discharge plan of care. ED Medical Decision Making - Medical Decision Making 62-year-old female that presents with bronchitis. Patient is stable and was examined by me and Dr. Phillip. Chest x-ray obtained interpreted by the radiologist. Patient is notified of her chest x-ray report with no questions was noted by the patient. Patient did state that she has a follow-up appointment with a rivet tester in 3 days. Patient did have a normal stress test and a echocardiogram last month. There is no wheezing upon auscultation and no respiratory distress. Patient denies orthopnea or Paroxysmal nocturnal dyspnea. Patient is discharged with azithromycin, albuterol and prednisone. Patient was referred to Follow-up with a primary care doctor in 3-5 days or if symptoms worsen and continue return to emergency room as soon as possible. At time of discharge, the patient does not seem toxic or ill in appearance. No acute signs of distress noted. Patient agrees to discharge treatment plan of care. No further questions noted by the patient. This chart is dictated with using [employer] Critical care attestation.: If time is entered above; I have spent that time in minutes in the direct care of this critically ill patient, excluding procedure time. ED Disposition Clinical Impression: Bronchitis Disposition: DC-01 TO HOME OR SELFCARE Is pt being admited?: No Does the pt Need Aspirin: No Condition: Stable Instructions: Chronic Bronchitis (ED), Prednisone (By mouth), Azithromycin (By mouth), Albuterol (By breathing) Additional Instructions: Follow-up with a primary care doctor in 3-5 days or if symptoms worsen and continue return to emergency room as soon as possible. Prescriptions: ALBUTEROL Inhaler [ProAir HFA Inhaler] 2 puff IH QID PRN #1 inhalation PRN Reason: Shortness Of Breath Azithromycin [Zithromax Z-NISHANT] 250 mg PO DAILY #6 tablet Prednisone [predniSONE 10 mg (6-Day Pack, 21 Tabs)] 10 mg PO .TAPER #1 tab.ds.pk Referrals: LUCINA CHRISTOPHER [Other] - 3-5 Days PRIMARY CARE, [Referring] - 3-5 Days [facility] [Outside] - 3-5 Days Forms: Work/School Release Form(ED)
== END 2017-10-24 18:36 | disposition home or self-care (01) ==
LOC: ED 12:10
DX: J40 Bronchitis, not specified as acute or chronic (principal); I10 Essential (primary) hypertension; I25.2 Old myocardial infarction; I25.10 Atherosclerotic heart disease of native coronary artery without angina pectoris; E78.00 Pure hypercholesterolemia, unspecified; F17.200 Nicotine dependence, unspecified, uncomplicated; Z95.1 Presence of aortocoronary bypass graft
CPT/HCPCS: 71046; 96372; 99283; J0696

== ENCOUNTER 2018-08-16 10:01 | Outpatient (CLI) | payer MEDICAID ==
[2018-08-16 10:53] LABS: Blood Urea Nitrogen 12 mg/dL (7-17)
--- NOTE | 2018-08-16 14:35 | Cat Scan Report ---
FINAL REPORT EXAM: CT ANGIO NECK HISTORY: CTA CAROTID AND VERTEBRAL, OCCLUSION AND STENOSIS OF BILAT TECHNIQUE: Multiple axial neck sections after IV contrast Carotids/neck CT angiography with IV contrast PRIORS: None. FINDINGS: Left mid CCA calcified plaque with approximately 20 % diameter stenosis. Left ICA origin noncalcified plaque with approximately 10 % diameter stenosis. Right CCA diffusely patent. Noncalcified plaque right carotid bifurcation with approximately 10 % diameter stenosis. Right ICA origin noncalcified plaque with approximately 40 % diameter stenosis. Cerebrovascular atherosclerosis is manifest as calcified plaque in the distal ICA carotid siphons. Diffusely patent vertebral arteries. No evidence of aneurysm. There is no definite filling defect to suggest dissection. Nonspecific 17 mm cyst in right anterior submandibular region is subcutaneous in location and may be a sebaceous cyst. IMPRESSION: Simple appearing superficial subcutaneous cyst in anterior right submandibular region may be a sebace ous cyst Multifocal calcified and noncalcified atherosclerotic plaque Multifocal carotid stenosis, less than 50 % diameter
== END 2018-08-16 10:02 | disposition home or self-care (01) ==
LOC: CT 10:01
PROVIDERS: ATTEND Surgery Vascular Surgery
DX: I65.23 Occlusion and stenosis of bilateral carotid arteries (principal); K11.8 Other diseases of salivary glands; I10 Essential (primary) hypertension; E78.5 Hyperlipidemia, unspecified; E78.00 Pure hypercholesterolemia, unspecified; K21.9 Gastro-esophageal reflux disease without esophagitis; Z87.891 Personal history of nicotine dependence
CPT/HCPCS: 36415; 70498; 82565; 84520; Q9967

== ENCOUNTER 2018-09-04 14:05 | Outpatient (CLI) | payer MEDICAID ==
--- NOTE | 2018-09-04 15:28 | XRay Report ---
CERVICAL SPINE SERIES THREE VIEWS: 09/04/18 14:05:00 CLINICAL: Neck pain. FINDINGS: Diffuse increased density of the bones. Straightening of the C-spine and loss of the normal cervical lordosis. Normal vertebral body height and alignment from C1-C4. He has C5 and C6 vertebral bodies are significantly decreased in height. Alignment is normal. Disc space narrowing and large anterior and posterior osteophytes at C5-6 and C6-7. No fracture. The odontoid and C1 are intact. Bilateral surgical clips in the study of the carotid arteries. IMPRESSION: Nonspecific increased bone density which may be related to renal osteodystrophy or metastatic disease. Moderately severe degenerative disc disease at C5-6 and C6-7 with osteophytes.
== END 2018-09-04 14:06 | disposition home or self-care (01) ==
LOC: SPVIMAG 14:05
DX: M50.322 Other cervical disc degeneration at C5-C6 level (principal); M48.02 Spinal stenosis, cervical region; I10 Essential (primary) hypertension; E78.5 Hyperlipidemia, unspecified
CPT/HCPCS: 72040

== ENCOUNTER 2019-01-25 17:14 | Observation (INO) | payer MEDICAID ==
[2019-01-25] MEDS ORDERED: APRESOLINE IV ONE (17:39)
[2019-01-25 17:52] LABS: Basophils # (Auto) 0.1 K/mm3 (0.0-0.1); Basophils % (Auto) 0.9 % (0.0-1.8); Eosinophils # (Auto) 0.2 K/mm3 (0.0-0.4); Eosinophils % (Auto) 1.8 % (0.0-4.3); Hematocrit 38.9 % (30.3-42.9); Hemoglobin 12.7 gm/dl (10.1-14.3); Lymphocytes # (Auto) 1.9 K/mm3 (1.2-5.4); Lymphocytes % (Auto) 19.1 % (13.4-35.0); Mean Corpuscular HGB Conc 33 % (30-34); Mean Corpuscular Volume 73 fl (79-97); Monocytes # (Auto) 0.7 K/mm3 (0.0-0.8); Monocytes % (Auto) 6.9 % (0.0-7.3); Platelet Count 327 K/mm3 (140-440); Red Blood Count 5.35 M/mm3 (3.65-5.03); Red Cell Distribution Width 15.9 % (13.2-15.2)
[2019-01-25 18:12] LABS: BUN/Creatinine Ratio 18; Blood Urea Nitrogen 14 mg/dL (7-17); Calcium 9.6 mg/dL (8.4-10.2); Hemolysis Index 291
[2019-01-25] MEDS ORDERED: TORADOL IV ONE (18:12)
[2019-01-25] MEDS: VASOTEC IV ONE ×2 (18:34→19:05)
[2019-01-25] MEDS ORDERED: NACL 0.9% 1000 ML 1,000 ML IV ONE (19:20)
[2019-01-25] MEDS ORDERED: NACL 0.9% 1000 ML 1,000 ML ONE (19:20)
--- NOTE | 2019-01-25 19:40 | Emergency Department Report ---
HPI - General Chief Complaint: High BP Time Seen by Provider: 01/25/19 17:39 - HPI HPI: 63-year-old female presents to the emergency department, sent in by the dentist, initially for elevated blood pressure. The patient has a history of hypertension for which she takes metoprolol 25 mg twice daily, and she did take this medication this morning. She was going to have some work done by the dentist but they found her to have an extremely elevated blood pressure and therefore they would not do any procedures on her and sent her in to be seen. She complains of some tingling around the lips, some pain to the eyes that has been going on since her dentist appointment. The patient also complains of some chronic neck and shoulder pains that she thinks may be the reason for her elevated blood pressure. Once the patient got to the emergency department, she started complaining of some dizziness and feelings of near syncope. She saw a new primary care physician yesterday, and she had a normal blood pressure at that time. She has a past medical history of coronary artery disease with triple bypass, remote colon cancer, bilateral carotid disease with previous surgery, and PVD. ED Past Medical Hx - Past Medical History Previous Medical History?: Yes Hx Hypertension: Yes Hx CVA: No Hx Heart Attack/AMI: No (denies heart attack,stated BLOCKAGE) Hx Congestive Heart Failure: No Hx Diabetes: No Hx Deep Vein Thrombosis: No Hx Pulmonary Embolism: No Hx GERD: No Hx Liver Disease: No Hx Renal Disease: No Hx of Cancer: Yes (colon cancer) Hx Sickle Cell Disease: No Hx Arthritis: No Hx Headaches / Migraines: No Hx Seizures: No Hx Kidney Stones: No Hx Psychiatric Treatment: No Hx Asthma: No Hx COPD: No Hx Tuberculosis: No Hx Dementia: No Hx HIV: No Additional medical history: CAD,HIGH CHOLESTEROL, Bronchitis, herpes - Surgical History Past Surgical History?: Yes Hx Coronary Stent: No Hx Open Heart Surgery: Yes (01/27 TRIPLE BYPASS, 3 stents) Hx Pacemaker: No Hx Internal Defibrillator: No Hx Cholecystectomy: No Hx Appendectomy: No Hx Breast Surgery: No Additional Surgical History: Exploratory laparotomy with left hemicolectomy 02/13/2015. RIGHT AND LEFT Carotid endarterectomy,PORT to right upper chest- removed 2015 - Social History Smoking Status: Former Smoker Substance Use Type: None - Medications Home Medications: Home Medications Medication Instructions Recorded Confirmed Last Taken Type Aspirin [Aspirin BABY CHEW TAB] 81 mg PO QDAY 04/03/15 06/27/18 06/26/18 History Metoprolol [Lopressor TAB] 25 mg PO BID 02/16/16 06/27/18 06/26/18 History Simvastatin (Nf) [Zocor TAB] 20 mg PO QHS #30 tablet 06/14/16 06/27/18 06/26/18 Rx Vit C/Ascorbate Calcium,Sodium 1 tab PO DAILY 06/14/16 06/27/18 06/26/18 History [Vitamin C 500 mg/15 ml Liquid] Cholecalciferol Vit D3 [Vitamin D3] 400 unit PO QDAY 06/27/18 06/27/18 06/26/18 History Garlic 1,000 mg PO DAILY 06/27/18 06/27/18 06/26/18 History Irbesartan-Hctz 150-12.5 mg Tb 1 tab PO DAILY 06/27/18 06/27/18 06/26/18 History Iron [Iron 18 MG TAB] 65 mg PO QDAY 06/27/18 06/27/18 06/26/18 History ED Review of Systems ROS: Stated complaint: HBP Other details as noted in HPI Constitutional: denies: chills, fever Eyes: eye pain. denies: eye discharge ENT: denies: ear pain, throat pain Respiratory: denies: cough, shortness of breath Cardiovascular: denies: chest pain, palpitations Gastrointestinal: denies: abdominal pain, vomiting Genitourinary: denies: dysuria, discharge Musculoskeletal: arthralgia. denies: back pain Skin: denies: rash, lesions Neurological: other (dizziness/lightheaded). denies: numbness Physical Exam - Physical Exam Vital Signs: Vital Signs 01/25/19 01/25/19 01/25/19 17:28 18:08 18:36 Temperature 98.4 F Pulse Rate 69 65 Respiratory 18 18 Rate Blood Pressure 252/91 252/91 Blood Pressure 252/91 [Right] O2 Sat by Pulse 98 Oximetry 01/25/19 19:05 Temperature Pulse Rate 82 Respiratory Rate Blood Pressure 132/82 Blood Pressure [Right] O2 Sat by Pulse Oximetry Physical Exam: GENERAL: The patient is well-developed well-nourished. HENT: Normocephalic. Atraumatic. Patient has moist mucous membranes. No nystagmus. EYES: Extraocular motions are intact. Pupils equal reactive to light bilaterally. NECK: Supple. Trachea is midline. CHEST/LUNGS: Clear to auscultation. There is no respiratory distress noted. HEART/CARDIOVASCULAR: Regular. There is no tachycardia. There is no murmur. ABDOMEN: Abdomen is soft, nontender. Patient has normal bowel sounds. There is no abdominal distention. SKIN: Skin is warm and dry. NEURO: The patient is awake, alert, and oriented. The patient is cooperative. The patient has no focal neurologic deficits. The patient has normal speech. Cranial nerves II through XII grossly intact. No facial asymmetry. MUSCULOSKELETAL: There is no tenderness or deformity. There is no evidence of acute injury. ED Course Vital Signs 01/25/19 01/25/19 01/25/19 17:28 18:08 18:36 Temperature 98.4 F Pulse Rate 69 65 Respiratory 18 18 Rate Blood Pressure 252/91 252/91 Blood Pressure 252/91 [Right] O2 Sat by Pulse 98 Oximetry 01/25/19 19:05 Temperature Pulse Rate 82 Respiratory Rate Blood Pressure 132/82 Blood Pressure [Right] O2 Sat by Pulse Oximetry ED Medical Decision Making - Lab Data Result diagrams: 01/25/19 17:41 01/25/19 17:41 - EKG Data -: EKG Interpreted by Me EKG shows normal: sinus rhythm, axis, intervals, QRS complexes, ST-T waves Rate: normal - EKG Data When compared to previous EKG there are: no significant change Interpretation: unchanged when compared t (06/27/18) - Medical Decision Making This patient initially presented for very elevated blood pressure. Despite having some recent normal blood pressures, she had a blood pressure of systolic 250 upon arrival here. Her complaints were very vague including some tingling around the lips and some type of abnormal sensation behind the eyes. She denies any chest pain, shortness of breath, fever. Patient was given some hydralazine which brought her blood pressure down to about a systolic of 200. She started complaining of some generalized dizziness. She was given a dose of Vasotec. She went to have a CT scan done of the head without contrast that did not show any bleed, shift, vascular ischemia, or any other acute process. Upon return from CT, the patient complained of severe dizziness and diaphoresis. She was found to have a blood pressure of about 58/30. At this point the patient was given some IV fluid resuscitation to bring her blood pressure back up. So far it has come back to about a systolic of 110. Patient's labs show some hyp okalemia with potassium of 5.8 so some Kayexalate was ordered. The rest of the labs have been unremarkable including a negative troponin and normal thyroid function. Given the patient's history of coronary artery disease, carotid disease and the extreme fluctuations in her blood pressure, will be my recommendation for this patient to be admitted to the hospital for further evaluation and observation. This patient will be presented to the admitting hospitalist, Dr. Auguste, for either admission or further disposition. Critical Care Time: No Critical care attestation.: If time is entered above; I have spent that time in minutes in the direct care of this critically ill patient, excluding procedure time. ED Disposition Clinical Impression: Hypertensive urgency, Hyperkalemia, Dizziness Disposition: DC-[id number] OP ADMIT IP TO THIS HOSP Is pt being admited?: Yes Condition: Fair Referrals: GERALDINE CHAIDEZ MD [Primary Care Provider] - 3-5 Days Time of Disposition: 20:10
[2019-01-25] MEDS ORDERED: KIONEX PO ONE (19:48)
--- NOTE | 2019-01-25 19:53 | Cat Scan Report ---
CT head/brain wo con INDICATION: dizziness. TECHNIQUE: All CT scans at this location are performed using CT dose reduction for ALARA by means of automated e xposure control. COMPARISON: None available. FINDINGS: Visualized paranasal and mastoid sinuses are clear. (Left mastoids are slightly hypoplastic.) Ventricles are symmetrical and normal in size. Cerebellum and fourth ventricle appear normal. No mass , hemorrhage or other significant abnormality. IMPRESSION: 1. No significant abnormality. Signer Name: Damon Liriano MD Signed: 01/25/2019 7:48 PM Workstation Name: [id number]
[2019-01-25] MEDS ORDERED: ZOFRAN IV PRN ×2 (21:38→21:50)
--- NOTE | 2019-01-25 21:49 | History and Physical Report ---
History of Present Illness Chief complaint: I dont feel well History of present illness: 63 YO Female with HTN, Colon Cancer, CAD S/P CABG and Stent Placement, HLD, OA S/P steroid Injection, Bronchitis presents to ED for evaluation. Pt states that she has experienced uncontrolled blood pressure after starting new medication regimen as prescribed by her PCP. Pt also reports feeling weak, and tired over the past 1 day. Pt acknowledges decreased exercise tolerance, elevated blood pressure, dizziness, shortness of breath and feeling as though she was going to pass out. EMS notified, and upon arrival the patient was found to be in distress and transported to [facility]. Pt seen and evaluated in ED and found to have Hypertensive Urgency with SBP> 240, which was followed by hypotension with SBP in the 60's. Pt also found to have symptoms consistent with Diastolic CHF. Pt admitted to telemetry. Cardiology consulted. Pt denies fever, chills, CP, Palpitations, NVD, Trauma, Vertigo, prolonged travel/immobility, unilateral leg swelling, calf pain, individual/family history of DVT/PE/Bleeding/BLood Clotting Disorders, or recent ill contacts. Previous admission 05/11/18 reviewed. All listed medication reconciled at time of admission. Past History Past Medical History: CAD, cancer, hypertension, hyperlipidemia, other (Bronchitis) Past Surgical History: CABG, bowel surgery Social history: . denies: smoking, alcohol abuse, prescription drug abuse Family history: hypertension Medications and Allergies Allergies Allergy/AdvReac Type Severity Reaction Status Date / Time No Known Allergies Allergy Verified 10/18/16 13:47 Home Medications Medication Instructions Recorded Confirmed Last Taken Type Aspirin [Aspirin BABY CHEW TAB] 81 mg PO DAILY 04/03/15 01/25/19 06/26/18 History Metoprolol [Lopressor TAB] 25 mg PO BID 02/16/16 01/25/19 06/26/18 History Clopidogrel [Plavix] 75 mg PO DAILY 01/25/19 01/25/19 Unknown History Simvastatin 20 mg PO DAILY 01/25/19 01/25/19 Unknown History metFORMIN XR [Glucophage XR] 500 mg PO DAILY 01/25/19 01/25/19 Unknown History Active Meds: Active Medications Ondansetron HCl (Zofran) 4 mg IV Q8H PRN PRN Reason: N/V unrelieved by Reglan Review of Systems Constitutional: no weight loss, no weight gain, no fever, no chills Ears, nose, mouth and throat: no ear pain, no ear discharge, no tinnitis, no nose pain Breasts: no change in shape, no swelling, no mass Cardiovascular: no chest pain, no orthopnea, no palpitations, no rapid/irregular heart beat, no edema Respiratory: no cough, no cough with sputum, no excessive sputum, no hemoptysis, no shortness of breath, no dyspnea on exertion Gastrointestinal: no nausea, no vomiting, no diarrhea, no constipation Genitourinary Female: no dysmenorrhea, no pelvic pain, no flank pain, no menorrhagia, no dysuria, no urinary frequency, no urgency Rectal: no pain, no incontinence, no bleeding Musculoskeletal: no neck stiffness, no neck pain, no shooting arm pain, no arm numbness/tingling, no low back pain, no shooting leg pain Integumentary: no rash, no pruritis, no redness, no sores, no wounds, no jaundice Neurological: no head injury, no transient paralysis, no paralysis, no weakness, no parathesias, no numbness, no tingling, no seizures Psychiatric: no anxiety, no memory loss, no sleep disturbances, no insomnia, no hypersomnia, no change in libido, no suicidal ideation, no hallucinations Endocrine: no cold intolerance, no heat intolerance, no polyphagia, no excessive thirst, no polydipsia, no excessive sweating, no flushing Hematologic/Lymphatic: no easy bruising, no easy bleeding, no lymphadenopathy, no lymphedema Allergic/Immunologic: no allergic rhinitis, no persistent infections, no anaphylaxis Exam - Constitutional Vitals: Temp Pulse Resp BP Pulse Ox 98.4 F 60 17 127/88 96 01/25/19 17:28 01/25/19 21:15 01/25/19 21:15 01/25/19 21:15 01/25/19 21:15 General appearance: Present: mild distress - EENT Eyes: Present: PERRL ENT: hearing intact, clear oral mucosa - Neck Neck: Present: supple, normal ROM - Respiratory Respiratory effort: normal Respiratory: bilateral: CTA - Cardiovascular Heart Sounds: Present: S1 & S2. Absent: rub, click - Extremities Extremities: pulses symmetrical, No edema Peripheral Pulses: within normal limits - Abdominal General gastrointestinal: Present: soft, non-tender, non-distended, normal bowel sounds Female genitourinary: Present: normal - Integumentary Integumentary: Present: clear, warm, dry - Musculoskeletal Musculoskeletal: gait normal, strength equal bilaterally - Psychiatric Psychiatric: appropriate mood/affect, intact judgment & insight - Neurologic Neurologic: CNII-XII intact, moves all extremities Results - Labs CBC & Chem 7: 01/25/19 17:41 01/26/19 05:01 Labs: Abnormal lab results 01/25/19 01/25/19 Range/Units 17:41 17:41 RBC 5.35 H (3.65-5.03) M/mm3 MCV 73 L (79-97) fl MCH 24 L (28-32) pg RDW 15.9 H (13.2-15.2) % Seg Neutrophils % 71.3 H (40.0-70.0) % Sodium 136 L (137-145) mmol/L Potassium 5.8 H (3.6-5.0) mmol/L Carbon Dioxide 21 L (22-30) mmol/L Glucose 104 H (65-100) mg/dL Assessment and Plan - Patient Problems (1) Diastolic CHF Current Visit: Yes Status: Acute Qualifiers: Heart failure chronicity: acute Qualified Code(s): I50.31 - Acute diastolic (congestive) heart failure Plan to address problem: Cardiology consulted in ED, Strict I/O, daily weight, monitor uop q shift, thyroid panel, Echo, supplemental oxygen, pulse oximetry (2) Hypotension Current Visit: Yes Status: Acute Plan to address problem: IVF resuscitation therapy, CT ABdomen pelvis pending at time of admission to evaluate for retroperitoneal fluid collection, or intraabdominal pathology. (3) Acidosis Current Visit: Yes Status: Acute Plan to address problem: IVF resuscitation therapy, repeat bmp, (4) Hypertensive urgency Current Visit: Yes Status: Acute Plan to address problem: Monitor BP q shift, Hold antihypertensive therapy at this time due to hypotension. (5) CAD (coronary artery disease) Current Visit: Yes Status: Acute Qualifiers: Associated angina: without angina Plan to address problem: Admit to telemetry, supportive care, risk factor reduction, low cholesterol diet, (6) HLD (hyperlipidemia) Current Visit: Yes Status: Acute Qualifiers: Hyperlipidemia type: mixed hyperlipidemia Qualified Code(s): E78.2 - Mixed hyperlipidemia Plan to address problem: Statin therapy, supportive care, lipid panel (7) DVT prophylaxis Current Visit: No Status: Acute Plan to address problem: SCD to BLE while in bed, supportive care.
[2019-01-25] MEDS ORDERED: PROVENTIL IH PRN (21:50)
[2019-01-25] MEDS ORDERED: TYLENOL PO PRN (21:50)
[2019-01-25] MEDS ORDERED: SODIUM CHLORIDE FLUSH SYRINGE 10 ML IV PRN (21:50)
[2019-01-25] MEDS ORDERED: PRAVACHOL PO SCH (22:00)
[2019-01-25] MEDS: SODIUM CHLORIDE FLUSH SYRINGE 10 ML IV SCH (22:15)
[2019-01-25 22:49] LABS: Free T4 (Free Thyroxine) 1.11 ng/dL (0.76-1.46)
--- NOTE | 2019-01-25 23:34 | Cat Scan Report ---
CT ABDOMEN AND PELVIS WITH IV CONTRAST INDICATION: MAIN: pain, pt states she had abdominal pain a week ago, hx colon cancer.. History of colon cancer COMPARISON: CT 04/03/2015. TECHNIQUE: All CT scans at this facility use dose modulation, automated exposure control, iterative reconstructi on or weight based dosing, when appropriate, to reduce radiation dose to as low as reasonably achieva ble. FINDINGS: Lung Bases: Clear. Skeletal System: No acute abnormality. ABDOMEN: Liver: Normal. Gallbladder: Normal. Bile Ducts: Normal. Pancreas: Normal. Spleen: Normal. Adrenals: Normal. Right Kidney: Normal. Left Kidney: Normal. Stomach and Bowel: No dilated loops of small bowel are seen. Lymph Nodes: No significant adenopathy. Aorta: No significant abnormality. Additional Findings: There is a tiny periumbilical ventral hernia which contains a single loop of sma ll bowel (axial image 53). There is associated traction or inflammation. PELVIS: Colon: The colon is focally dilated with constipation in the proximal descending colon (as seen on ax ial report 1). This appears to be in the region of anastomosis. No intrinsic colonic inflammation is seen. Urinary Bladder and Distal Ureters: Bladder is decompressed, limiting its evaluation. Appendix: Normal. Lymph Nodes: No significant adenopathy. Additional Findings: None. IMPRESSION: 1. No acute inflammatory process or obstruction. 2. Constipation is noted with focal dilatation of the proximal descending colon near the anastomosis . Similar findings were noted on the remote prior CT. 3. Small periumbilical ventral hernia contains a single loop of small bowel. There is no associated b owel obstruction or inflammation. Signer Name: Rory Silva MD Signed: 01/25/2019 11:30 PM Workstation Name: [id number]
[2019-01-26 06:03] LABS: Basophils % (Auto) 0.5 % (0.0-1.8); Eosinophils % (Auto) 0.3 % (0.0-4.3); Hematocrit 32.8 % (30.3-42.9); Hemoglobin 10.5 gm/dl (10.1-14.3); Lymphocytes # (Auto) 1.4 K/mm3 (1.2-5.4); Lymphocytes % (Auto) 15.7 % (13.4-35.0); Mean Corpuscular HGB Conc 32 % (30-34); Mean Corpuscular Volume 72 fl (79-97); Monocytes # (Auto) 0.6 K/mm3 (0.0-0.8); Monocytes % (Auto) 7.5 % (0.0-7.3); Platelet Count 274 K/mm3 (140-440); Red Blood Count 4.55 M/mm3 (3.65-5.03)
[2019-01-26 06:25] LABS: Alanine Aminotransferase 12 units/L (7-56); Albumin 3.8 g/dL (3.9-5); BUN/Creatinine Ratio 18; Blood Urea Nitrogen 14 mg/dL (7-17); Calcium 8.6 mg/dL (8.4-10.2); Hemolysis Index 5
[2019-01-26] MEDS: SODIUM CHLORIDE FLUSH SYRINGE 10 ML IV SCH (09:33)
[2019-01-26] MEDS ORDERED: NON-FORMULARY (Simvastatin [Simvastatin] 20 MG) PO SCH (10:00)
[2019-01-26] MEDS ORDERED: PLAVIX PO SCH (10:00)
[2019-01-26] MEDS ORDERED: BABY ASPIRIN PO SCH (10:00)
--- NOTE | 2019-01-26 11:12 | Consultation ---
History of Present Illness Consult date: 01/26/19 Requesting physician: TYLER NOEL Consult reason: congestive heart failure History of present illness: The pt is a 63 YO female with a past medical history significant for CAD s/p CABG x 4 in 01/2013, carotid artery disease s/p bilateral CEA, PVD, HTN, HLP, GIB, former tobacco use (quit smoking 1 year ago). She is followed in our office by Dr. Becki Montes. She presented with c/o elevated BPs. She states she was at the dentist and was about to have some teeth extracted when her dentist took her BP and noted it to be extremely high and thus referred her to ED for further eval/management. Pt denies any symptoms and states she has been feeling well. Admission BP was 252/91. LHC 05/2013 showed patent bypass grafts. Echo done 09/2017 showed 55-60%, impaired relaxation. Lexiscan MPI stress test done 09/2017 was negative for ischemia, EF 72%. Neck CTA done 02/2018 showed multifocal calcified atherosclerotic disease without evidence of occlusion, dissection flap or focal critical stenosis. Overall improved luminal contour of the left internal carotid artery compared to prior exam. Past History Past Medical History: CAD, cancer, hypertension, hyperlipidemia, other (Bronc hitis) Past Surgical History: CABG, bowel surgery Social history: . denies: smoking, alcohol abuse, prescription drug abuse Family history: hypertension Medications and Allergies Allergies Allergy/AdvReac Type Severity Reaction Status Date / Time No Known Allergies Allergy Verified 10/18/16 13:47 Home Medications Medication Instructions Recorded Confirmed Last Taken Type Aspirin [Aspirin BABY CHEW TAB] 81 mg PO DAILY 04/03/15 01/25/19 06/26/18 History Clopidogrel [Plavix] 75 mg PO DAILY 01/25/19 01/25/19 Unknown History Simvastatin 20 mg PO DAILY 01/25/19 01/25/19 Unknown History metFORMIN XR [Glucophage XR] 500 mg PO DAILY 01/25/19 01/25/19 Unknown History Lisinopril [Zestril TAB] 5 mg PO QDAY #30 tablet 01/26/19 Unknown Rx Metoprolol [Lopressor TAB] 25 mg PO BID #60 tablet 01/26/19 Unknown Rx Active Meds: Active Medications Acetaminophen (Tylenol) 650 mg PO Q4H PRN PRN Reason: Pain MILD(1-3)/Fever >100.5/LEONG Last Admin: 01/26/19 09:48 Dose: 650 mg Documented by: Albuterol (Proventil) 2.5 mg IH Q4HRT PRN PRN Reason: Shortness Of Breath Aspirin (Baby Aspirin) 81 mg PO DAILY [facility] Last Admin: 01/26/19 09:33 Dose: 81 mg Documented by: Clopidogrel Bisulfate (Plavix) 75 mg PO DAILY [facility] Last Admin: 01/26/19 09:33 Dose: 75 mg Documented by: Ondansetron HCl (Zofran) 4 mg IV Q8H PRN PRN Reason: N/V unrelieved by Regsarah Ondansetron HCl (Zofran) 4 mg IV Q8H PRN PRN Reason: Nausea And Vomiting Pravastatin Sodium (Pravachol) 40 mg PO QHS [facility] Last Admin: 01/25/19 22:21 Dose: 40 mg Documented by: Sodium Chloride (Sodium Chloride Flush Syringe 10 Ml) 10 ml IV BID [facility] Last Admin: 01/26/19 09:33 Dose: 10 ml Documented by: Sodium Chloride (Sodium Chloride Flush Syringe 10 Ml) 10 ml IV PRN PRN PRN Reason: LINE FLUSH Review of Systems All systems: negative (elevated BP) Cardiovascular: high blood pressure, no chest pain, no orthopnea, no palpitations, no rapid/irregular heart beat, no edema, no syncope, no lightheadedness, no shortness of breath, no dyspnea on exertion, no paroxysmal nocturnal dyspnea, no leg edema, no decreased exercise tolerance Physical Examination Vital Signs Temp Pulse Resp BP Pulse Ox 98.2 F 69 18 252/91 98 01/25/19 17:28 01/25/19 17:28 01/25/19 17:28 01/25/19 17:28 01/25/19 17:28 General appearance: no acute distress HEENT: Positive: PERRL, Normocephaly, Mucus Membranes Moist Neck: Positive: neck supple, trachea midline Cardiac: Positive: Reg Rate and Rhythm, S1/S2 Lungs: Positive: Decreased Breath Sounds Neuro: Positive: Grossly Intact Abdomen: Positive: Soft. Negative: Tender Skin: Negative: Rash, Wound Musculoskeletal: No Pain Extremities: Absent: edema Results 01/26/19 05:01 01/26/19 05:01 Cardiac Enzymes 01/26/19 Range/Units 05:01 AST 14 (5-40) units/L CBC 01/25/19 01/26/19 Range/Units 17:41 05:01 WBC 9.9 8.7 (4.5-11.0) K/mm3 RBC 5.35 H 4.55 (3.65-5.03) M/mm3 Hgb 12.7 10.5 (10.1-14.3) gm/dl Hct 38.9 32.8 D (30.3-42.9) % Plt Count 327 274 (140-440) K/mm3 Lymph # 1.9 1.4 (1.2-5.4) K/mm3 [place] # 0.7 0.6 (0.0-0.8) K/mm3 Eos # 0.2 0.0 (0.0-0.4) K/mm3 Baso # 0.1 0.0 (0.0-0.1) K/mm3 Comprehensive Metabolic Panel 01/25/19 01/26/19 Range/Units 17:41 05:01 Sodium 136 L 142 (137-145) mmol/L Potassium 5.8 H 4.0 D (3.6-5.0) mmol/L Chloride 101.7 104.1 (98-107) mmol/L Carbon Dioxide 21 L 25 (22-30) mmol/L BUN 14 14 (7-17) mg/dL Creatinine 0.8 0.8 (0.7-1.2) mg/dL Glucose 104 H 108 H (65-100) mg/dL Calcium 9.6 8.6 (8.4-10.2) mg/dL AST 14 (5-40) units/L ALT 12 (7-56) units/L Alkaline Phosphatase 63 (35-129) units/L Total Protein 6.7 (6.3-8.2) g/dL Albumin 3.8 L (3.9-5) g/dL - Imaging and Cardiology Echo: report reviewed (09/2017 showed 55-60%, impaired relaxation. ) Cardiac cath: report reviewed (05/2013 showed patent bypass grafts. ) EKG: report reviewed, image reviewed EKG interpretations - Telemetry EKG Rhythm: Sinus Rhythm - EKG Sinus rhythms and dysrhythmias: sinus rhythm Assessment and Plan Pt admitted with hypertensive urgency. Her BPs are now WNL, she denies any occurrence of cardiac symptoms. She may be discharged home from cardiac perspective. Recommend pt follow up in our office with Dr. Becki Montes within 1-2 weeks of hospital discharge ([phone]). The patient has been seen in conjunction with Dr. Gallagher who agrees with the assessment and plan of care. - Patient Problems (1) Hypertensive urgency Current Visit: Yes Status: Acute (2) CAD (coronary artery disease) Current Visit: Yes Status: Chronic Qualifiers: Associated angina: without angina (3) Hx of CABG Current Visit: Yes Status: Chronic (4) HTN (hypertension) Current Visit: Yes Status: Chronic Qualifiers: (5) HLD (hyperlipidemia) Current Visit: Yes Status: Chronic Qualifiers: Hyperlipidemia type: mixed hyperlipidemia Qualified Code(s): E78.2 - Mixed hyperlipidemia (6) H/O carotid endarterectomy Current Visit: Yes Status: Chronic (7) PVD (peripheral vascular disease) Current Visit: Yes Status: Chronic
[2019-01-26 12:30] VITALS: BP 135/47
--- NOTE | 2019-01-26 12:51 | Discharge Summary ---
Providers - Providers Date of Admission: 01/25/19 21:50 Attending physician: ADARSH ARMENTA MD 01/26/19 06:53 Consult to Cardiology [CONS] Routine Consulting Provider: JUANITA SINHA Reason For Exam: CHF Primary care physician: ISHMAEL CLEARY Hospitalization Reason for admission: CHF Condition: Stable Hospital course: 63 YO Female with HTN, Colon Cancer, CAD S/P CABG and Stent Placement, HLD, OA S/P steroid Injection, Bronchitis presents to ED for evaluation. Pt states that she has experienced uncontrolled blood pressure after starting new medication regimen as prescribed by her PCP. Pt also reports feeling weak, and tired over the past 1 day. Pt acknowledges decreased exercise tolerance, elevated blood pressure, dizziness, shortness of breath and feeling as though she was going to pass out. EMS notified, and upon arrival the patient was found to be in distress and transported to [facility]. Pt seen and evaluated in ED and found to have Hypertensive Urgency with SBP> 240, which was followed by hypotension with SBP in the 60's. Pt also found to have symptoms consistent with Diastolic CHF. Pt admitted to telemetry. Cardiology consulted. Pt denies fever, chills, CP, Palpitations, NVD, Trauma, Vertigo, prolonged travel/immobility, unilateral leg swelling, calf pain, individual/family history of DVT/PE/Bleeding/BLood Clotting Disorders, or recent ill contacts. Previous admission 05/11/18 reviewed. All listed medication reconciled at time of admission. BP better No shortness of breath No chest pain Per patient she had colonoscopy this year and stress test all were normal She has no swelling in the legs or upper ext She was informed of Elevated D.Dimer and will monitor with her PCP. she has had an episode of the same in [address] AP was discussed with the patient and she reports good BM. (1) Diastolic CHF (2) Hypotension (3) Acidosis (4) Hypertensive urgency (5) CAD (coronary artery disease) (6) HLD (hyperlipidemia) Disposition: - TO HOME OR SELFCARE Time spent for discharge: 35 mins Core Measure Documentation - Palliative Care Palliative Care/ Comfort Measures: Not Applicable - Core Measures Any of the following diagnoses?: none Exam - Physical Exam Narrative exam: General appearance: Present: mild distress - EENT Eyes: Present: PERRL ENT: hearing intact, clear oral mucosa - Neck Neck: Present: supple, normal ROM - Respiratory Respiratory effort: normal Respiratory: bilateral: CTA - Cardiovascular Heart Sounds: Present: S1 & S2. Absent: rub, click - Extremities Extremities: pulses symmetrical, No edema Peripheral Pulses: within normal limits - Abdominal General gastrointestinal: Present: soft, non-tender, non-distended, normal bowel sounds Female genitourinary: Present: normal - Integumentary Integumentary: Present: clear, warm, dry - Musculoskeletal Musculoskeletal: gait normal, strength equal bilaterally - Psychiatric Psychiatric: appropriate mood/affect, intact judgment & insight - Neurologic Neurologic: CNII-XII intact, moves all extremities - Constitutional Vitals: Temp Pulse Resp BP Pulse Ox 98.3 F 62 18 135/47 91 01/26/19 07:12 01/26/19 12:09 01/26/19 12:09 01/26/19 12:09 01/26/19 12:09 Plan Activity: advance as tolerated, fall precautions Diet: low fat, diabetic Special Instructions: record daily weights, record daily BP diary Follow up with: [facility] [place] MD OMAYRA [Referring] - 3-5 Days DEON CANO MD [Staff Physician] - 7 Days Prescriptions: Metoprolol [Lopressor TAB] 25 mg PO BID #60 tablet Lisinopril [Zestril TAB] 5 mg PO QDAY #30 tablet
== END 2019-01-26 15:15 | disposition home or self-care (01) ==
LOC: ED 17:14 → INTOOBSV 21:50 → 4A 21:50
PROVIDERS: ADMIT Internal Medicine; ATTEND Internal Medicine
DX: I11.0 Hypertensive heart disease with heart failure (principal); I50.30 Unspecified diastolic (congestive) heart failure; I95.9 Hypotension, unspecified; E87.2 Acidosis; I16.0 Hypertensive urgency; I25.10 Atherosclerotic heart disease of native coronary artery without angina pectoris; E78.5 Hyperlipidemia, unspecified; I73.9 Peripheral vascular disease, unspecified; E87.5 Hyperkalemia; Z85.038 Personal history of other malignant neoplasm of large intestine; Z95.1 Presence of aortocoronary bypass graft; Z98.890 Other specified postprocedural states; Z86.79 Personal history of other diseases of the circulatory system; Z79.899 Other long term (current) drug therapy
CPT/HCPCS: 36415; 70450; 74177; 80048; 80053; 83735; 83880; 84439; 84443; 84484; 85025; 85379; 93005; 93010; 93306; 96361; 96374; 96375; 99284; A9270; G0378; J0360; J1885; J2405; J7030; Q9967

== ENCOUNTER 2019-02-12 18:20 | Emergency (ER) | payer MEDICAID ==
--- NOTE | 2019-02-12 18:40 | Emergency Department Report ---
Blank Doc - Documentation Documentation: This is a 63-year-old female that present with headache, dizziness, and blurry vision. Stated has had uncontrolled HTN and is on medications. This initial assessment/diagnostic orders/clinical plan/treatment(s) is/are subject to change based on patient's health status, clinical progression and re- assessment by fellow clinical providers in the ED. Further treatment and workup at subsequent clinical providers discretion. Patient/guardians urged not to elope from the ED as their condition may be serious if not clinically assessed and managed. Initial orders include: 1- Patient sent to [facility] for further evaluation and treatment 2- CT head 3- labs
[2019-02-12 19:09] LABS: Basophils # (Auto) 0.1 K/mm3 (0.0-0.1); Basophils % (Auto) 0.9 % (0.0-1.8); Eosinophils # (Auto) 0.2 K/mm3 (0.0-0.4); Eosinophils % (Auto) 2.2 % (0.0-4.3); Hematocrit 38.7 % (30.3-42.9); Hemoglobin 12.2 gm/dl (10.1-14.3); Lymphocytes # (Auto) 1.8 K/mm3 (1.2-5.4); Lymphocytes % (Auto) 21.7 % (13.4-35.0); Mean Corpuscular HGB Conc 32 % (30-34); Mean Corpuscular Volume 74 fl (79-97); Monocytes # (Auto) 0.6 K/mm3 (0.0-0.8); Monocytes % (Auto) 7.6 % (0.0-7.3); Platelet Count 301 K/mm3 (140-440); Red Blood Count 5.27 M/mm3 (3.65-5.03); Red Cell Distribution Width 16.1 % (13.2-15.2)
[2019-02-12 19:56] LABS: BUN/Creatinine Ratio 16; Blood Urea Nitrogen 11 mg/dL (7-17); Calcium 9.6 mg/dL (8.4-10.2); Hemolysis Index 18
--- NOTE | 2019-02-12 20:05 | Emergency Department Report ---
ED Headache HPI - General Chief Complaint: High BP Stated Complaint: HIGH BP Time Seen by Provider: 02/12/19 18:38 Source: patient Exam Limitations: no limitations - History of Present Illness Initial Comments: 63-year-old female with history of hypertension presents to ED with elevated blood pressure and headache. Patient states blood pressures have been elevated for the last 2 weeks despite taking her metoprolol and lisinopril. Patient reports onset of occipital headache earlier today. Patient was seen by her PCP today, states 2 additional blood pressure medications were added, amlodipine and a water pill. Patient has gotten these medications filled, but has not taken them yet, still needs to pick him up from [facility]. The patient states headache and blurred vision have improved. Denies any nausea, vomiting, extremity weakness or numbness. Timing/Duration: 4-6 hours Quality: severe Associated Symptoms: vision changes. denies: nausea/vomiting, weakness Allergies/Adverse Reactions: Allergies No Known Allergies Allergy (Verified 02/12/19 18:23) Home Medications: Ambulatory Orders Aspirin [Aspirin BABY CHEW TAB] 81 mg PO DAILY 04/03/15 Clopidogrel [Plavix] 75 mg PO DAILY 01/25/19 Simvastatin 20 mg PO DAILY 01/25/19 metFORMIN XR [Glucophage XR] 500 mg PO DAILY 01/25/19 Lisinopril [Zestril TAB] 5 mg PO QDAY #30 tablet 01/26/19 Metoprolol [Lopressor TAB] 25 mg PO BID #60 tablet 01/26/19 amLODIPine [Norvasc] 5 mg PO QDAY 02/12/19 ED Review of Systems ROS: Stated complaint: HIGH BP Other details as noted in HPI Comment: All other systems reviewed and negative Eyes: vision change Respiratory: denies: shortness of breath Cardiovascular: denies: chest pain Gastrointestinal: denies: nausea, vomiting Neurological: headache. denies: weakness, numbness, paresthesias ED Past Medical Hx - Past Medical History Hx Hypertension: Yes Hx CVA: No Hx Heart Attack/AMI: No (denies heart attack,stated BLOCKAGE) Hx Congestive Heart Failure: No Hx Diabetes: Yes Hx Deep Vein Thrombosis: No Hx Pulmonary Embolism: No Hx GERD: Yes Hx Liver Disease: No Hx Renal Disease: No Hx Sickle Cell Disease: No Hx Arthritis: Yes Hx Headaches / Migraines: No Hx Seizures: No Hx Kidney Stones: No Hx Psychiatric Treatment: No Hx Asthma: No Hx COPD: No Hx Tuberculosis: No Hx Dementia: No Hx HIV: No Additional medical history: CAD,HIGH CHOLESTEROL, Bronchitis, herpes - Surgical History Hx Coronary Stent: No Hx Open Heart Surgery: Yes (01/27 TRIPLE BYPASS, 3 stents) Hx Pacemaker: No Hx Internal Defibrillator: No Hx Cholecystectomy: No Hx Appendectomy: No Hx Breast Surgery: No Additional Surgical History: Exploratory laparotomy with left hemicolectomy 02/13/2015. RIGHT AND LEFT Carotid endarterectomy,PORT to right upper chest- removed 2015 - Social History Smoking Status: Former Smoker Substance Use Type: None - Medications Home Medications: Home Medications Medication Instructions Recorded Confirmed Last Taken Type Aspirin [Aspirin BABY CHEW TAB] 81 mg PO DAILY 04/03/15 02/12/19 02/11/19 History Clopidogrel [Plavix] 75 mg PO DAILY 01/25/19 02/12/19 02/11/19 History Simvastatin 20 mg PO DAILY 01/25/19 02/12/19 02/11/19 History metFORMIN XR [Glucophage XR] 500 mg PO DAILY 01/25/19 02/12/19 02/11/19 History Lisinopril [Zestril TAB] 5 mg PO QDAY #30 tablet 01/26/19 02/12/19 02/11/19 Rx Metoprolol [Lopressor TAB] 25 mg PO BID #60 tablet 01/26/19 02/12/19 02/11/19 Rx amLODIPine [Norvasc] 5 mg PO QDAY 02/12/19 02/12/19 Unknown History ED Physical Exam - General Limitations: No Limitations General appearance: alert, in no apparent distress - Head Head exam: Present: atraumatic, normocephalic - Eye Eye exam: Present: normal appearance, PERRL, EOMI - ENT ENT exam: Present: mucous membranes moist - Neck Neck exam: Present: normal inspection, full ROM - Respiratory Respiratory exam: Present: normal lung sounds bilaterally. Absent: respiratory distress - Cardiovascular Cardiovascular Exam: Present: regular rate, normal rhythm - GI/Abdominal GI/Abdominal exam: Present: soft. Absent: distended - Extremities Exam Extremities exam: Present: normal inspection - Neurological Exam Neurological exam: Present: alert, oriented X3, CN II-XII intact. Absent: motor sensory deficit - Psychiatric Psychiatric exam: Present: normal affect, normal mood - Skin Skin exam: Present: warm, dry, intact, normal color ED Course Vital Signs 02/12/19 02/12/19 02/12/19 18:40 19:58 19:59 Temperature 98.0 F Pulse Rate 64 58 L Respiratory 20 16 16 Rate Blood Pressure 229/88 Blood Pressure 166/74 [Right] O2 Sat by Pulse 97 99 Oximetry 02/12/19 20:00 Temperature Pulse Rate 52 L Respiratory 18 Rate Blood Pressure Blood Pressure 160/65 [Right] O2 Sat by Pulse 99 Oximetry ED Medical Decision Making - Lab Data Result diagrams: 02/12/19 18:51 02/12/19 18:51 - Radiology Data Radiology results: report reviewed, image reviewed - Medical Decision Making 63-year-old female with headache and elevated blood pressure. CT head normal. No neuro deficits on exam. Initial BP is 229/88, however improved to 160/65 without medication administration here in ED. Patient given new medication prescription which she will be picking up after she leaves the ER. Patient discharged at this time. Return precautions given. - Differential Diagnosis intracranial bleed, hypertensive LEONG, hypertensive emergency Critical care attestation.: If time is entered above; I have spent that time in minutes in the direct care of this critically ill patient, excluding procedure time. ED Disposition Clinical Impression: Hypertension, Acute headache Disposition: DC-01 TO HOME OR SELFCARE Is pt being admited?: No Condition: Stable Instructions: Hypertension (ED) Referrals: PRIMARY CARE, [Referring] - 3-5 Days Time of Disposition: 20:20
--- NOTE | 2019-02-12 20:15 | Cat Scan Report ---
CT head without contrast CLINICAL HISTORY: Headache, visual disturbance. FINDINGS: The brain appears to demonstrate appropriate attenuation for age without significant interv al change from the CT of 01/25/2019. The ventricular system remains appropriate in size and configurat ion. There is no CT evidence of acute intracranial hemorrhage or significant mass effect. The visuali zed paranasal sinuses are clear. All CT scans at this location are performed using the CT dose reduct ion for [facility] by means of automated exposure control. IMPRESSION: There is no CT evidence of acute intracranial process. Signer Name: Salvador Limon MD Signed: 02/12/2019 8:11 PM Workstation Name: [id number]
[2019-02-12 20:40] VITALS: BP 160/65
== END 2019-02-12 20:40 | disposition home or self-care (01) ==
LOC: ED 18:20
DX: I10 Essential (primary) hypertension (principal); E11.9 Type 2 diabetes mellitus without complications; K21.0 Gastro-esophageal reflux disease with esophagitis; M19.90 Unspecified osteoarthritis, unspecified site; E78.00 Pure hypercholesterolemia, unspecified; I25.10 Atherosclerotic heart disease of native coronary artery without angina pectoris; Z95.1 Presence of aortocoronary bypass graft; Z87.891 Personal history of nicotine dependence; Z79.82 Long term (current) use of aspirin; Z79.899 Other long term (current) drug therapy
CPT/HCPCS: 36415; 70450; 80048; 85025; 99284

== ENCOUNTER 2019-06-26 13:48 | Emergency (ER) | payer MEDICAID ==
[2019-06-26] MEDS ORDERED: ASPIRIN 325 MG TAB PO ONE (14:11)
--- NOTE | 2019-06-26 14:11 | Event Note ---
ED Screening Note Date of service: 06/26/19 Time: 14:10 ED Screening Note: 63 y o female presents to ed cc of chest pain x 2days This initial assessment/diagnostic orders/clinical plan/treatment(s) is/are subject to change based on patients health status, clinical progression and re-assessment by fellow clinical providers in the ED. Further treatment and workup at subsequent clinical providers discretion. Patient/guardian urged not to elope from the ED as their condition may be serious if not clinically assessed and managed. Initial orders include: labs
[2019-06-26 14:53] LABS: Basophils % (Auto) 0.7 % (0.0-1.8); Eosinophils # (Auto) 0.1 K/mm3 (0.0-0.4); Eosinophils % (Auto) 1.9 % (0.0-4.3); Hematocrit 36.9 % (30.3-42.9); Hemoglobin 11.8 gm/dl (10.1-14.3); Lymphocytes # (Auto) 1.5 K/mm3 (1.2-5.4); Lymphocytes % (Auto) 21.5 % (13.4-35.0); Mean Corpuscular HGB Conc 32 % (30-34); Mean Corpuscular Volume 72 fl (79-97); Monocytes # (Auto) 0.5 K/mm3 (0.0-0.8); Monocytes % (Auto) 7.6 % (0.0-7.3); Platelet Count 367 K/mm3 (140-440); Red Blood Count 5.14 M/mm3 (3.65-5.03); Red Cell Distribution Width 14.9 % (13.2-15.2)
--- NOTE | 2019-06-26 14:55 | XRay Report ---
CHEST 1 VIEW INDICATION: Chest Pain. COMPARISON: 05/11/2018 FINDINGS: Support devices: None. Heart: Within normal limits. Previous CABG changes are suspected. Lungs/Pleura: No acute air space or interstitial disease. Additional findings: None. IMPRESSION: No acute findings. Signer Name: Meliton Faustin Jr, MD Signed: 06/26/2019 2:50 PM Workstation Name: [id number]
[2019-06-26 15:17] LABS: BUN/Creatinine Ratio 14; Blood Urea Nitrogen 10 mg/dL (7-17); Calcium 11.3 mg/dL (8.4-10.2); Hemolysis Index 8
--- NOTE | 2019-06-26 16:33 | Emergency Department Report ---
ED Chest Pain HPI - General Chief Complaint: Chest Pain Stated Complaint: CHEST/LOWER BACK PAIN Time Seen by Provider: 06/26/19 16:21 Source: patient Mode of arrival: Ambulatory Limitations: No Limitations - History of Present Illness Initial Comments: Patient is 63 years old female with significant history of coronary artery disease, status post CABG in 2013, cardiac catheterization in 2018 with significant occlusion in multiple coronary arteries. Patient has been evaluated by her metalizing supervisor several times had advised medical therapy. Patient pr esented to the ER complaining of left chest, substernal pain for the last 2 weeks. Patient stated that pain is sharp and burning sensation sometimes, intermittent with no radiation. Patient stated that pain improve with Nexium. Patient stated that she was seen by her metalizing supervisor recently and she was referred to gastroenterology for endoscopy but she did not have that appointment yet. Patient denied any shortness of breath, fever or cough. MD Complaint: chest pain -: week(s) (2) Onset: during rest Pain Location: substernal, left chest, epigastric Pain Radiation: none Severity: mild Quality: sharp, other (burning) Consistency: intermittent - Related Data Home Medications Medication Instructions Recorded Confirmed Last Taken Aspirin [Aspirin BABY CHEW TAB] 81 mg PO DAILY 04/03/15 02/12/19 02/11/19 Clopidogrel [Plavix] 75 mg PO DAILY 01/25/19 02/12/19 02/11/19 Simvastatin 20 mg PO DAILY 01/25/19 02/12/19 02/11/19 metFORMIN XR [Glucophage XR] 500 mg PO DAILY 01/25/19 02/12/19 02/11/19 amLODIPine 5 mg PO QDAY 02/12/19 02/12/19 Unknown Previous Rx's Medication Instructions Recorded Last Taken Type Lisinopril [Zestril TAB] 5 mg PO QDAY #30 tablet 01/26/19 02/11/19 Rx Metoprolol [Lopressor TAB] 25 mg PO BID #60 tablet 01/26/19 02/11/19 Rx Allergies Allergy/AdvReac Type Severity Reaction Status Date / Time No Known Allergies Allergy Verified 02/12/19 18:23 Heart Score - HEART Score History: Slightly suspicious EKG: Non-specific Age: > 65 Risk factors: > 3 risk factors or hx of atherosclerotic disease Troponin: < normal limit HEART Score: 5 - Critical Actions Critical Actions: 4-6 pts:12-16.6% risk of adverse cardiac event. Should be admitted ED Review of Systems ROS: Stated complaint: CHEST/LOWER BACK PAIN Other details as noted in HPI Comment: All other systems reviewed and negative Constitutional: denies: chills, fever Respiratory: denies: cough, shortness of breath, SOB with exertion, wheezing Cardiovascular: chest pain. denies: palpitations, dyspnea on exertion Gastrointestinal: denies: abdominal pain, nausea, vomiting, diarrhea, constipation, hematemesis, melena, hematochezia Musculoskeletal: back pain Neurological: denies: headache, weakness, numbness, paresthesias, confusion, abnormal gait ED Past Medical Hx - Past Medical History Previous Medical History?: Yes Hx Hypertension: Yes Hx CVA: No Hx Heart Attack/AMI: No (denies heart attack,stated BLOCKAGE) Hx Congestive Heart Failure: No Hx Diabetes: Yes Hx Deep Vein Thrombosis: No Hx Pulmonary Embolism: No Hx GERD: Yes Hx Liver Disease: No Hx Renal Disease: No Hx Sickle Cell Disease: No Hx Arthritis: Yes Hx Headaches / Migraines: No Hx Seizures: No Hx Kidney Stones: No Hx Psychiatric Treatment: No Hx Asthma: No Hx COPD: No Hx Tuberculosis: No Hx Dementia: No Hx HIV: No Additional medical history: CAD,HIGH CHOLESTEROL, Bronchitis, herpes - Surgical History Past Surgical History?: Yes Hx Coronary Stent: No Hx Open Heart Surgery: Yes (01/27 TRIPLE BYPASS, 3 stents) Hx Pacemaker: No Hx Internal Defibrillator: No Hx Cholecystectomy: No Hx Appendectomy: No Hx Breast Surgery: No Additional Surgical History: Exploratory laparotomy with left hemicolectomy 02/13/2015. RIGHT AND LEFT Carotid endarterectomy,PORT to right upper chest- removed 2015 - Social History Smoking Status: Never Smoker Substance Use Type: None - Medications Home Medications: Home Medications Medication Instructions Recorded Confirmed Last Taken Type Aspirin [Aspirin BABY CHEW TAB] 81 mg PO DAILY 04/03/15 02/12/19 02/11/19 History Clopidogrel [Plavix] 75 mg PO DAILY 01/25/19 02/12/19 02/11/19 History Simvastatin 20 mg PO DAILY 01/25/19 02/12/19 02/11/19 History metFORMIN XR [Glucophage XR] 500 mg PO DAILY 01/25/19 02/12/19 02/11/19 History Lisinopril [Zestril TAB] 5 mg PO QDAY #30 tablet 01/26/19 02/12/19 02/11/19 Rx Metoprolol [Lopressor TAB] 25 mg PO BID #60 tablet 01/26/19 02/12/19 02/11/19 Rx amLODIPine 5 mg PO QDAY 02/12/19 02/12/19 Unknown History ED Physical Exam - General Limitations: No Limitations General appearance: alert, in no apparent distress - Head Head exam: Present: atraumatic, normocephalic, normal inspection - Eye Eye exam: Present: normal appearance - ENT ENT exam: Present: normal exam, normal orophraynx, mucous membranes moist - Neck Neck exam: Present: normal inspection, full ROM. Absent: tenderness, meningismus, lymphadenopathy, thyromegaly - Respiratory Respiratory exam: Present: normal lung sounds bilaterally - Cardiovascular Cardiovascular Exam: Present: regular rate, normal rhythm, normal heart sounds - GI/Abdominal GI/Abdominal exam: Present: soft, normal bowel sounds. Absent: distended, tenderness, guarding, rebound, rigid, organomegaly, mass, bruit, pulsatile mass, hernia - Extremities Exam Extremities exam: Present: normal inspection, full ROM, normal capillary refill. Absent: pedal edema, calf tenderness - Back Exam Back exam: Present: normal inspection, full ROM. Absent: CVA tenderness (R), CVA tenderness (L), muscle spasm, paraspinal tenderness, vertebral tenderness - Neurological Exam Neurological exam: Present: alert, oriented X3, CN II-XII intact, normal gait, reflexes normal - Psychiatric Psychiatric exam: Present: normal mood - Skin Skin exam: Present: warm, intact, normal color ED Course Vital Signs 06/26/19 14:08 Temperature 98.3 F Pulse Rate 81 Respiratory 17 Rate Blood Pressure 170/69 O2 Sat by Pulse 98 Oximetry OLIVA score - Oliva Score Age > 65: (0) No Aspirin use within the Past 7 Days: (1) Yes 3 or more CAD Risk Factors: (1) Yes 2 or more Angina events in past 24 hrs: (0) No Known CAD with more than 50% Stenosis: (0) No Elevated Cardiac Markers: (0) No ST Deviation Greater than 0.5mm: (0) No OLIVA Score: 2 ED Medical Decision Making - Lab Data Result diagrams: 06/26/19 14:22 06/26/19 14:22 - EKG Data -: EKG Interpreted by Ar EKG shows normal: sinus rhythm Rate: normal - EKG Data Interpretation: no acute changes - Radiology Data Radiology results: report reviewed - Medical Decision Making Patient is 63 years old female with significant history of coronary artery disease, status post CABG in 2013, cardiac catheterization in 2018 with signific ant occlusion in multiple coronary arteries. Patient has been evaluated by her metalizing supervisor several times had advised medical therapy. Patient presented to the ER complaining of left chest, substernal pain for the last 2 weeks. Patient stated that pain is sharp and burning sensation sometimes, intermittent with no radiation. Patient stated that pain improve with Nexium. Patient stated that she was seen by her metalizing supervisor recently and she was referred to gastroenterology for endoscopy but she did not have that appointment yet. Patient denied any shortness of breath, fever or cough. EKG showed no ST elevation. Chest x-ray is unremarkable. Labs reviewed and is unremarkable including 2 negative troponin. Even though the patient have significant cardiac risk including previous CABG and coronary artery disease the patient chest pain is atypical and related most likely to be GI for which she was referred by her metalizing supervisor Dr. York. Patient advised to follow-up with gastroenterology as scheduled. Patient stated that she is following his heart metalizing supervisor and primary care physician tomorrow and after tomorrow. Again patient advised to return to the ER if she developed any new symptoms. Critical care attestation.: If time is entered above; I have spent that time in minutes in the direct care of this critically ill patient, excluding procedure time. ED Disposition Clinical Impression: Atypical chest pain, Hx of CABG Disposition: - TO HOME OR SELFCARE Is pt being admited?: No Condition: Stable Instructions: Chest Pain (ED) Referrals: GENARO YORK MD [Staff Physician] - 3-5 Days
[2019-06-26 18:13] VITALS: BP 155/73
== END 2019-06-26 18:11 | disposition home or self-care (01) ==
LOC: ED 13:48
DX: R07.89 Other chest pain (principal); I10 Essential (primary) hypertension; E11.9 Type 2 diabetes mellitus without complications; K21.9 Gastro-esophageal reflux disease without esophagitis; M19.90 Unspecified osteoarthritis, unspecified site; Z95.1 Presence of aortocoronary bypass graft; Z87.74 Personal history of (corrected) congenital malformations of heart and circulatory system; Z98.890 Other specified postprocedural states; Z79.84 Long term (current) use of oral hypoglycemic drugs; Z79.899 Other long term (current) drug therapy
CPT/HCPCS: 36415; 71045; 80048; 83690; 84484; 85025; 93005; 93010

== ENCOUNTER 2019-07-08 23:56 | Observation (INO) | payer MEDICAID ==
[2019-07-09 00:44] LABS: Basophils # (Auto) 0.1 K/mm3 (0.0-0.1); Basophils % (Auto) 0.9 % (0.0-1.8); Eosinophils # (Auto) 0.3 K/mm3 (0.0-0.4); Eosinophils % (Auto) 3.5 % (0.0-4.3); Hematocrit 34.2 % (30.3-42.9); Hemoglobin 11.2 gm/dl (10.1-14.3); Lymphocytes # (Auto) 1.6 K/mm3 (1.2-5.4); Mean Corpuscular HGB Conc 33 % (30-34); Mean Corpuscular Volume 71 fl (79-97); Monocytes # (Auto) 0.6 K/mm3 (0.0-0.8); Monocytes % (Auto) 7.6 % (0.0-7.3); Platelet Count 345 K/mm3 (140-440); Red Blood Count 4.82 M/mm3 (3.65-5.03); Red Cell Distribution Width 14.8 % (13.2-15.2)
[2019-07-09 01:06] LABS: BUN/Creatinine Ratio 13; Blood Urea Nitrogen 9 mg/dL (7-17); Calcium 9.2 mg/dL (8.4-10.2); Hemolysis Index 9
--- NOTE | 2019-07-09 01:14 | XRay Report ---
CHEST 1 VIEW INDICATION: Chest Pain. COMPARISON: 06/26/2019 FINDINGS: SUPPORT DEVICES: None. HEART / MEDIASTINUM: No significant abnormality. LUNGS / PLEURA: No significant pulmonary or pleural abnormality. No pneumothorax. ADDITIONAL FINDINGS: Median sternotomy IMPRESSION: 1. No acute findings. Signer Name: Shaggy Mclean MD Signed: 07/09/2019 1:09 AM Workstation Name: [id number]
[2019-07-09] MEDS ORDERED: ASPIRIN 81 MG TAB CHEW PO ONE (01:58)
[2019-07-09] MEDS ORDERED: ACETAMINOPHEN 325 MG TAB PO PRN (01:59)
[2019-07-09] MEDS ORDERED: ONDANSETRON 4 MG/2 ML INJ IV PRN (01:59)
--- NOTE | 2019-07-09 02:03 | Emergency Department Report ---
ED Chest Pain HPI - General Chief Complaint: Chest Pain Stated Complaint: HIGH BP/CHEST TIGHTNESS Time Seen by Provider: 07/09/19 01:32 Source: patient, EMS Mode of arrival: Ambulatory Limitations: No Limitations - History of Present Illness MD Complaint: chest pain -: Gradual, hour(s) Onset: during rest Pain Location: substernal Pain Radiation: none Severity: mild Severity scale (0 -10): 2 Quality: tightness Consistency: intermittent Improves With: nothing Worsens With: nothing re: denies: nausea, vomting, diaphoresis, dyspnea, sense of impending doom Other Symptoms: denies: cough, fever, syncope, rash, acid taste in mouth, leg swelling, palpitations, burping - Related Data Home Medications Medication Instructions Recorded Confirmed Last Taken Aspirin [Aspirin BABY CHEW TAB] 81 mg PO DAILY 04/03/15 02/12/19 02/11/19 Clopidogrel [Plavix] 75 mg PO DAILY 01/25/19 02/12/19 02/11/19 Simvastatin 20 mg PO DAILY 01/25/19 02/12/19 02/11/19 metFORMIN XR [Glucophage XR] 500 mg PO DAILY 01/25/19 02/12/19 02/11/19 amLODIPine 5 mg PO QDAY 02/12/19 02/12/19 Unknown Previous Rx's Medication Instructions Recorded Last Taken Type Metoprolol [Lopressor TAB] 25 mg PO BID #60 tablet 01/26/19 02/11/19 Rx lisinopriL [Zestril TAB] 5 mg PO QDAY #30 tablet 01/26/19 02/11/19 Rx Esomeprazole Magnesium [NexIUM] 40 mg PO QDAY #30 capsule. 06/26/19 Unknown Rx Ondansetron [Zofran Odt] 4 mg PO Q8HR PRN #14 tab.rapdis 06/26/19 Unknown Rx Sucralfate [Carafate] 1 gm PO ACHS #120 tablet 06/26/19 Unknown Rx traMADoL [Ultram 50 MG tab] 50 mg PO Q4HR PRN #14 tablet 06/26/19 Unknown Rx Allergies Allergy/AdvReac Type Severity Reaction Status Date / Time No Known Allergies Allergy Verified 02/12/19 18:23 Heart Score - HEART Score History: Moderately suspicious EKG: Non-specific Age: 45-65 Risk factors: > 3 risk factors or hx of atherosclerotic disease Troponin: < normal limit HEART Score: 5 ED Review of Systems ROS: Stated complaint: HIGH BP/CHEST TIGHTNESS Other details as noted in HPI Other: GENERAL: No weight change, fatigue, fever, chills, or night sweats SKIN: No changes in skin or hair, no itching, no rashes, no jaundice HEAD: No trauma EYES: No blurriness, tearing, itching, acute visual loss, conjunctival discoloration, or scleral icterus EARS: No hearing loss, tinnitus, vertigo, or earache NOSE: No rhinorrhea, stuffiness, sneezing, itching, or epistaxis MOUTH: No bleeding gums, hoarseness, sore throat, or swelling CARDIAC: Chest pain. No new murmur, palpitations, dyspnea on exertion, orthopnea, PND, or edema RESPIRATORY: No shortness of breath, wheeze, cough, sputum production, hemoptysis GI: No abdominal pain, nausea, vomiting, dysphagia, diarrhea, constipation, hematemesis, melena, hematochezia URINARY: No frequency, urgency, polyuria, dysuria, hematuria, or incontinence MUSCULOSKELETAL: No muscle weakness, joint stiffness, decrease in range of motion, redness, swelling NEUROLOGIC: No headache, syncope, loss of sensation, numbness, tingling, tremors, weakness, paralysis, seizures HEMATOLOGIC: No anemia, easy bruising, bleeding, petechiae, or purpura ENDOCRINE: No hot or cold intolerance, sweating, polyuria, polydipsia or, polyphagia no thyroid problems PSYCHIATRIC: No change in mood, no anxiety, no depression ED Past Medical Hx - Past Medical History Previous Medical History?: Yes Hx Hypertension: Yes Hx CVA: No Hx Heart Attack/AMI: No (denies heart attack,stated BLOCKAGE) Hx Congestive Heart Failure: No Hx Diabetes: Yes Hx Deep Vein Thrombosis: No Hx Pulmonary Embolism: No Hx GERD: Yes Hx Liver Disease: No Hx Renal Disease: No Hx Sickle Cell Disease: No Hx Arthritis: Yes Hx Headaches / Migraines: No Hx Seizures: No Hx Kidney Stones: No Hx Psychiatric Treatment: No Hx Asthma: No Hx COPD: No Hx Tuberculosis: No Hx Dementia: No Hx HIV: No Additional medical history: CAD,HIGH CHOLESTEROL, Bronchitis, herpes - Surgical History Past Surgical History?: Yes Hx Coronary Stent: No Hx Open Heart Surgery: Yes (01/27 TRIPLE BYPASS, 3 stents) Hx Pacemaker: No Hx Internal Defibrillator: No Hx Cholecystectomy: No Hx Appendectomy: No Hx Breast Surgery: No Additional Surgical History: Exploratory laparotomy with left hemicolectomy 02/13/2015. RIGHT AND LEFT Carotid endarterectomy,PORT to right upper chest- removed 2015 - Social History Smoking Status: Former Smoker Substance Use Type: None - Medications Home Medications: Home Medications Medication Instructions Recorded Confirmed Last Taken Type Aspirin [Aspirin BABY CHEW TAB] 81 mg PO DAILY 04/03/15 02/12/19 02/11/19 History Clopidogrel [Plavix] 75 mg PO DAILY 01/25/19 02/12/19 02/11/19 History Simvastatin 20 mg PO DAILY 01/25/19 02/12/19 02/11/19 History metFORMIN XR [Glucophage XR] 500 mg PO DAILY 01/25/19 02/12/19 02/11/19 History Metoprolol [Lopressor TAB] 25 mg PO BID #60 tablet 01/26/19 02/12/19 02/11/19 Rx lisinopriL [Zestril TAB] 5 mg PO QDAY #30 tablet 01/26/19 02/12/19 02/11/19 Rx amLODIPine 5 mg PO QDAY 02/12/19 02/12/19 Unknown History Esomeprazole Magnesium [NexIUM] 40 mg PO QDAY #30 capsule.dr 06/26/19 Unknown Rx Ondansetron [Zofran Odt] 4 mg PO Q8HR PRN #14 tab.rapdis 06/26/19 Unknown Rx Sucralfate [Carafate] 1 gm PO ACHS #120 tablet 06/26/19 Unknown Rx traMADoL [Ultram 50 MG tab] 50 mg PO Q4HR PRN #14 tablet 06/26/19 Unknown Rx ED Physical Exam - General Limitations: No Limitations - Other Other exam information: GENERAL: Patient in no acute distress HEAD: Normocephalic, atraumatic EYES: PERRLA, EOM intact, no scleral icterus, no conjunctival hemorrhage, visual kay and acuity wnl NOSE: No tenderness, discharge, sinus tenderness MOUTH: No erythema, bleeding, exudate HEART: Regular rate and rhythm, no murmur, S1-S2 are auscultated, no edema, pulses are symmetric LUNGS: No respiratory distress. Bilateral breath sounds, No tachypnea, No retractions, No wheezing, rales, rhonchi ABDOMEN: Normal bowel sounds, abdomen soft, no tenderness, no rebound, no guarding, no distention, no masses, no CVA tenderness MUSCULOSKELETAL: Normal joint range of motion, no redness, no swelling, no tenderness NEUROLOGIC: GCS 15, Alert and Oriented x3, Cranial nerves intact, normal sensation, normal strength, no cerebellar deficit, NIHSS 0 SKIN: Skin is warm and dry, no wounds, no rashes ED Course Vital Signs 07/09/19 07/09/19 07/09/19 00:01 01:51 01:53 Temperature 98.0 F Pulse Rate 82 97 H Respiratory 18 14 14 Rate Blood Pressure 167/77 Blood Pressure 148/61 [Left] O2 Sat by Pulse 99 97 97 Oximetry OLIVA score - Oliva Score Age > 65: (0) No Aspirin use within the Past 7 Days: (1) Yes 3 or more CAD Risk Factors: (1) Yes 2 or more Angina events in past 24 hrs: (0) No Known CAD with more than 50% Stenosis: (0) No Elevated Cardiac Markers: (0) No ST Deviation Greater than 0.5mm: (0) No OLIVA Score: 2 ED Medical Decision Making - Lab Data Result diagrams: 07/09/19 00:21 07/09/19 00:21 Laboratory Results - last 24 hr 07/09/19 07/09/19 00:21 00:21 WBC 7.7 RBC 4.82 Hgb 11.2 Hct 34.2 MCV 71 L MCH 23 L MCHC 33 RDW 14.8 Plt Count 345 Lymph % (Auto) 21.0 [place] % (Auto) 7.6 H Eos % (Auto) 3.5 Baso % (Auto) 0.9 Lymph # 1.6 [place] # 0.6 Eos # 0.3 Baso # 0.1 Seg Neutrophils % 67.0 Seg Neutrophils # 5.1 Sodium 132 L Potassium 3.1 L Chloride 92.0 L Carbon Dioxide 27 Anion Gap 16 BUN 9 Creatinine 0.7 Estimated GFR > 60 BUN/Creatinine Ratio 13 Glucose 108 H Calcium 9.2 Troponin T < 0.010 - EKG Data When compared to previous EKG there are: no significant change - Radiology Data Radiology results: report reviewed - Medical Decision Making Patient comfortable. Reports symptom improvement. Updated with results. Plan admit for further evaluation. Hospitalist updated and accepts admission. Critical care attestation.: If time is entered above; I have spent that time in minutes in the direct care of this critically ill patient, excluding procedure time. ED Disposition Clinical Impression: Chest pain Qualifiers: Chest pain type: unspecified Qualified Code(s): R07.9 - Chest pain, unspecified Disposition: OP ADMIT IP TO THIS HOSP Is pt being admited?: Yes Condition: Stable Instructions: Chest Pain (ED) Referrals: PRIMARY CARE, [Primary Care Provider] - 3-5 Days
--- NOTE | 2019-07-09 02:36 | History and Physical Report ---
History of Present Illness Date of examination: 07/09/19 History of present illness: 63-year-old woman with a history of hypertension, coronary artery disease and hyperlipidemia, colon cancer was brought to the emergency room with complaints of chest pain. Chest pain is in the epigastric area which she describes as a t ightness, constant r, no radiation, intensity 5/10. Denies nausea vomiting, diaphoresis and palpitation, shortness of breath. Patient is had a stress test in March that was negative Review Of Systems: Constitutional: no weight loss Ears, eyes, nose, mouth and throat: no nasal congestion, no nasal discharge, no sinus pressure, blurry vision, diplopia Neck: No neck pain or rigidity. Cardiovascular: no chest pain, orthopnea, palpitations Respiratory: + shortness of breath, cough Gastrointestinal: abdominal pain, hematochezia Genitourinary : no dysuria, frequency , hematuria Musculoskeletal: no muscle ache Integumentary: no rash, no pruritis Neurological: no parathesias, focal weakness Endocrine: no cold or heat intolerance, no polyuria or polydipsia Hematologic/Lymphatic: no easy bruising, no easy bleeding, no gland swelling Allergic/Immunologic: no urticaria, no angioedema. PAST MEDICAL HISTORY:hypertension, coronary artery disease and hyperlipidemia, colon cancer PAST SURGICAL HISTORY: CABG, left CEA, left hemicolectomy, port SOCIAL HISTORY: quit tobacco , no alcohol or drugs FAMILY HISTORY: Coronary artery disease, hypertension Medications and Allergies Allergies Allergy/AdvReac Type Severity Reaction Status Date / Time No Known Allergies Allergy Verified 02/12/19 18:23 Home Medications Medication Instructions Recorded Confirmed Last Taken Type Aspirin [Aspirin BABY CHEW TAB] 81 mg PO DAILY 04/03/15 02/12/19 02/11/19 History Clopidogrel [Plavix] 75 mg PO DAILY 01/25/19 02/12/19 02/11/19 History Simvastatin 20 mg PO DAILY 01/25/19 02/12/19 02/11/19 History metFORMIN XR [Glucophage XR] 500 mg PO DAILY 01/25/19 02/12/19 02/11/19 History Metoprolol [Lopressor TAB] 25 mg PO BID #60 tablet 01/26/19 02/12/19 02/11/19 Rx lisinopriL [Zestril TAB] 5 mg PO QDAY #30 tablet 01/26/19 02/12/1902/11/19 Rx amLODIPine 5 mg PO QDAY 02/12/19 02/12/19 Unknown History Esomeprazole Magnesium [NexIUM] 40 mg PO QDAY #30 capsule. 06/26/19 Unknown Rx Ondansetron [Zofran Odt] 4 mg PO Q8HR PRN #14 tab.rapdis 06/26/19 Unknown Rx Sucralfate [Carafate] 1 gm PO ACHS #120 tablet 06/26/19 Unknown Rx traMADoL [Ultram 50 MG tab] 50 mg PO Q4HR PRN #14 tablet 06/26/19 Unknown Rx Active Meds: Active Medications Acetaminophen (Tylenol) 650 mg PO Q4H PRN PRN Reason: Pain MILD(1-3)/Fever >100.5/LEONG Ondansetron HCl (Zofran) 4 mg IV Q8H PRN PRN Reason: Nausea And Vomiting Sodium Chloride (Sodium Chloride Flush Syringe 10 Ml) 10 ml IV BID YOANNA Sodium Chloride (Sodium Chloride Flush Syringe 10 Ml) 10 ml IV PRN PRN PRN Reason: LINE FLUSH Exam - Physical Exam Narrative exam: Gen. appearance: Patient lying in bed, no apparent distress HEENT: Normocephalic, atraumatic, pupils equally round and reactive to light, extraocular movement intact, and no sclericterus,. No JVD or thyromegaly or nodule,neck supple, no carotid bruit ,mucous membranes moist, no exudate or erythema Heart: S1, S2, regular rate and rhythm Lungs: Clear to auscultation bilaterally, breathing comfortable Abdomen: Positive bowel sounds, nontender, nondistended, no organomegaly Extremity: No edema, cyanosis, clubbing Skin: No rash, nodules, warm, dry Neuro: Oriented 3, cranial nerves II-12 intact, speech is fluent, motor and sensory intact - Constitutional Vitals: Temp Pulse Resp BP Pulse Ox 98.0 F 97 H 14 148/61 97 07/09/19 00:01 07/09/19 01:51 07/09/19 01:53 07/09/19 01:51 07/09/19 01:53 Results - Labs CBC & Chem 7: 07/09/19 00:21 07/09/19 00:21 Labs: Abnormal lab results 07/09/19 07/09/19 Range/Units 00:21 00:21 MCV 71 L (79-97) fl MCH 23 L (28-32) pg [place] % (Auto) 7.6 H (0.0-7.3) % Sodium 132 L (137-145) mmol/L Potassium 3.1 L (3.6-5.0) mmol/L Chloride 92.0 L (98-107) mmol/L Glucose 108 H (65-100) mg/dL - Imaging and Cardiology EKG: image reviewed Chest x-ray: report reviewed Assessment and Plan Assessment Chest pain/Coronary artery disease Check cardiac enzymes, consult cardiology Recent stress test done in March Hypertension Hyperlipidemia Continue oupatiebnt medications DVT prophylaxis
[2019-07-09] MEDS ORDERED: ASPIRIN 325 MG TAB ONE (03:50)
[2019-07-09] MEDS ORDERED: hydrALAZINE 20 MG/1 ML INJ IV PRN (07:05)
[2019-07-09 08:07] LABS: Chol/HDL Ratio 2.98 %
[2019-07-09 10:00] LABS: Creatine Kinase MB 4.3 ng/mL (0.0-4.0)
[2019-07-09] MEDS ORDERED: ONDANSETRON 4 MG ODT TAB PO PRN (10:40)
--- NOTE | 2019-07-09 10:40 | Progress Note ---
Assessment and Plan Assessment and plan: Patient is a 63-year-old woman with a history of hypertension, coronary artery disease s/p CABG, hyperlipidemia and colon cancer was brought to the emergency room with complaints of chest pains. Her nitroglycerin and she called her PCP, Dr. Kimani Colunga but did not get a refill. Last Cardiac cath was 06/27/2018 and it mentioned Ranexa but patient says she did not get that medication. She recently had stress test. Chest pain/Coronary artery disease, suspect Angina: Consulted Cardiology Hypertension: cardiac diet, low salt, continue antihypertensives Hypokalemia: replete and recheck Hyponatremia, hypovolemia DVT prophylaxis: sq heparin home medication reconciliation done Admitted to OBS today prolonged inpatient services Disposition: continue inpatient care, await Cardiology evaluation History Interval history: Patient was seen and examined. Follow-up on current diagnosis of chest pains, resolved now. Overnight uneventful. Patient denies any chest pain, shortness breath, nausea/vomiting or severe headaches. Imaging, nursing note, chart, labs and old chart reviewed. Discussed with patient. Hospitalist Physical - Physical exam Narrative exam: Gen: WDWN, NAD, Awake, Alert, Orientated HEENT: NCAT, EOMI, PERRL, OP Clear Neck: supple, no adenopathy, no thyromegaly, no JVD CVS/Heart: RRR, normal S1S2, pulses present bilaterally Chest/Lungs: CTA B, Symmetrical chest expansion, good air entry bilaterally GI/Abdomen: soft, NTND, good bowel sounds, no guarding or rebound /Bladder: no suprapubic tenderness, no CVA or paraspinal tenderness Extermity/Skin: no c/c/e, no obvious rash MSK: FROM x 4 Neuro: CN 2-12 grossly intact, no new focal deficits Psych: calm - Constitutional Vitals: Temp Pulse Resp BP Pulse Ox 97.9 F 67 18 127/65 97 07/09/19 10:12 07/09/19 10:12 07/09/19 10:12 07/09/19 10:12 07/09/19 10:12 Results - Labs CBC & Chem 7: 07/09/19 00:21 07/09/19 00:21 Labs: Laboratory Last Values WBC 7.7 K/mm3 (4.5-11.0) 07/09/19 00:21 RBC 4.82 M/mm3 (3.65-5.03) 07/09/19 00:21 Hgb 11.2 gm/dl (10.1-14.3) 07/09/19 00: Hct 34.2 % (30.3-42.9) 07/09/19 00:21 MCV 71 fl (79-97) L 07/09/19 00: MCH 23 pg (28-32) L 07/09/19 00: MCHC 33 % (30-34) 07/09/19 00: RDW 14.8 % (13.2-15.2) 07/09/19 00:21 Plt Count 345 K/mm3 (140-440) 07/09/19 00: Lymph % (Auto) 21.0 % (13.4-35.0) 07/09/19 00: [place] % (Auto) 7.6 % (0.0-7.3) H 07/09/19 00: Eos % (Auto) 3.5 % (0.0-4.3) 07/09/19 00: Baso % (Auto) 0.9 % (0.0-1.8) 07/09/19 00: Lymph # 1.6 K/mm3 (1.2-5.4) 07/09/19 00: [place] # 0.6 K/mm3 (0.0-0.8) 07/09/19 00: Eos # 0.3 K/mm3 (0.0-0.4) 07/09/19 00: Baso # 0.1 K/mm3 (0.0-0.1) 07/09/19 00: Seg Neutrophils % 67.0 % (40.0-70.0) 07/09/19 00: Seg Neutrophils # 5.1 K/mm3 (1.8-7.7) 07/09/19 00:21 Sodium 132 mmol/L (137-145) L 07/09/19 00:21 Potassium 3.1 mmol/L (3.6-5.0) L 07/09/19 00:21 Chloride 92.0 mmol/L (98-107) L 07/09/19 00: Carbon Dioxide 27 mmol/L (22-30) 07/09/19 00:21 Anion Gap 16 mmol/L 07/09/19 00:21 BUN 9 mg/dL (7-17) 07/09/19 00:21 Creatinine 0.7 mg/dL (0.7-1.2) 07/09/19 00:21 Estimated GFR > 60 ml/min 07/09/19 00:21 BUN/Creatinine Ratio 13 % 07/09/19 00:21 Glucose 108 mg/dL (65-100) H 07/09/19 00:21 Calcium 9.2 mg/dL (8.4-10.2) 07/09/19 00:21 Total Creatine Kinase 172 units/L (30-135) H 07/09/19 09:17 CK-MB (CK-2) 4.3 ng/mL (0.0-4.0) H 07/09/19 09:17 CK-MB (CK-2) Rel Index 2.5 (0-4) 07/09/19 09:17 Troponin T 0.033 ng/mL (0.00-0.029) H D 07/09/19 09:17 Triglycerides 83 mg/dL (2-149) 07/09/19 06:35 Cholesterol 161 mg/dL (50-199) 07/09/19 06:35 LDL Cholesterol Direct 96 mg/dL (50-130) 07/09/19 06:35 HDL Cholesterol 54 mg/dL (40-59) 07/09/19 06:35 Cholesterol/HDL Ratio 2.98 % 07/09/19 06:35 Active Medications - Current Medications Current Medications: Generic Name Dose Route Start Last Admin Trade Name Freq PRN Reason Stop Dose Admin Acetaminophen 650 mg 07/09/19 01:59 Tylenol PO Q4H PRN Pain MILD(1-3)/Fever >100.5/LEONG Hydralazine HCl 5 mg 07/09/19 07:05 Apresoline IV Q6H PRN Hypertension Ondansetron HCl 4 mg 07/09/19 01:59 Zofran IV Q8H PRN Nausea And Vomiting Pneumococcal Polyvalent Vaccine 0.5 ml 07/09/19 12:00 Pneumovax 23 IM 07/09/19 12:01 .ONCE ONE Sodium Chloride 10 ml 07/09/19 02:00 07/09/19 03:56 Sodium Chloride Flush Syringe 10 Ml IV 10 ml BID YOANNA Administration Sodium Chloride 10 ml 07/09/19 01:59 Sodium Chloride Flush Syringe 10 Ml IV PRN PRN LINE FLUSH
[2019-07-09] MEDS ORDERED: NON-FORMULARY EACH (Esomeprazole Magnesium [Nexium] 40 MG) PO SCH (10:45)
[2019-07-09] MEDS ORDERED: amLODIPine 5 MG TAB PO SCH (11:00)
[2019-07-09] MEDS ORDERED: SUCRALFATE 1 GM TAB PO SCH (11:30)
[2019-07-09] MEDS ORDERED: ASPIRIN 81 MG TAB CHEW PO SCH (12:00)
[2019-07-09] MEDS ORDERED: metFORMIN XR 500MG TAB PO SCH (12:00)
[2019-07-09] MEDS ORDERED: CLOPIDOGREL 75 MG TAB PO SCH (12:00)
[2019-07-09] MEDS ORDERED: METOPROLOL TARTRATE 25 MG TAB PO SCH (12:00)
[2019-07-09] MEDS ORDERED: LISINOPRIL 5 MG TAB PO SCH (12:00)
[2019-07-09] MEDS ORDERED: PNEUMOCOCCAL 23 Valent 0.5 ML VIAL IM ONE (12:00)
[2019-07-09 12:04] VITALS: BP 149/64
[2019-07-09] MEDS ORDERED: DEXTROSE 50% IN WATER (25GM) 50 ML SYRINGE IV PRN (12:10)
--- NOTE | 2019-07-09 13:36 | Discharge Summary ---
Providers - Providers Date of Admission: 07/09/19 01:59 Date of discharge: 07/09/19 Attending physician: JAN QUINTANILLA 07/09/19 07:04 Consult to Physician [CONS] Routine Comment: Consulting Provider: DEON CANO Physician Instructions: Reason For Exam: cp Primary care physician: KIMANI COLUNGA Hospitalization Condition: Stable Hospital course: Patient is a 63-year-old woman with a history of hypertension, coronary artery disease s/p CABG, hyperlipidemia and colon cancer was brought to the emergency room with complaints of chest pains. Her nitroglycerin and she called her PCP, Dr. Kimani Colunga but did not get a refill. Last Cardiac cath was 06/27/2018 and it mentioned Ranexa but patient says she did not get that medication. She recently had stress test. Discharge Diagnoses: Chest pain/Coronary artery disease, suspect Angina: Consulted Cardiology Hypertension: cardiac diet, low salt, continue antihypertensives Hypokalemia: replete and recheck Hyponatremia, hypovolemia home medication reconciliation done Disposition: continue inpatient care, await Cardiology evaluation but patient is threatening to leave AMA and refusing to take Plavix because Dentist took her off to fix teeth. Invoice Control Clerk on compliance Disposition: DC-01 TO HOME OR SELFCARE Time spent for discharge: 33 minutes Core Measure Documentation - Palliative Care Palliative Care/ Comfort Measures: Not Applicable - Core Measures Any of the following diagnoses?: none - VTE Discharge Requirements Deep Vein Thrombosis/Pulmonary Embolism Present on Admission: No Has pt received <5 days of overlap therapy or INR<2.0: No Anticoagulant overlap therapy prescribed at discharge: No Contraindication No Overlap Therapy order at DC: Not Indicated Exam - Physical Exam Narrative exam: Gen: WDWN, NAD, Awake, Alert, Orientated HEENT: NCAT, EOMI, PERRL, OP Clear Neck: supple, no adenopathy, no thyromegaly, no JVD CVS/Heart: RRR, normal S1S2, pulses present bilaterally Chest/Lungs: CTA B, Symmetrical chest expansion, good air entry bilaterally GI/Abdomen: soft, NTND, good bowel sounds, no guarding or rebound /Bladder: no suprapubic tenderness, no CVA or paraspinal tenderness Extermity/Skin: no c/c/e, no obvious rash MSK: FROM x 4 Neuro: CN 2-12 grossly intact, no new focal deficits Psych: calm - Constitutional Vitals: Temp Pulse Resp BP Pulse Ox 97.9 F 69 18 149/64 95 07/09/19 10:12 07/09/19 12:04 07/09/19 11:11 07/09/19 12:04 07/09/19 12:04 Plan Activity: other (no strenous activity unless cleared by Cardiology) Diet: low salt Additional Instructions: NO DENTAL procedure unless cleared by Cardiology. Notify Cardiology if you are not taking the plavix or aspirin Follow up with: PRIMARY CARE, [Referring] - 3-5 Days GENARO YORK MD [Staff Physician] - 7 Days Prescriptions: Nitroglycerin [Nitrostat] 0.4 mg SL Q5M PRN #15 tab PRN Reason: Chest Pain
--- NOTE | 2019-07-09 13:51 | Consultation ---
History of Present Illness Consult date: 07/09/19 Requesting physician: ILN BROWN Consult reason: chest pain History of present illness: Ms. Prieto is a 63 y/o female with a medical history significant for CAD s/p CABG, h/o L CEA, PVD, hypertension and colon cancer who presented to [facility] with c/o chest tightness in the epigastric area. She follows with Dr. Becki Montes in our office. She reports chest discomfort is intermittent and has a number of environmental triggers. The discomfort was relieved by an antacid. There was no associated SOB or N/V. Initial troponins negative, but last two mildly elevated to 0.05 and 0.03. EKG NAF. Her blood pressure was also markedly elevated. Hypokalemia noted as well. On examination, she denies any chest discomfort and is ready to go home. An echocardiogram in January 2019 found an EF of 50 to 55 percent with an abnormal LV diastolic filling pattern, mild MR and a minimal pericardial effusion. A stress test in April 2019 was negative for ischemia and infarct. A cardiac catheterization in June 2018 revealed multivessel disease with STEWARD/STEWARDESS SECOND CLASS of proximal LAD, 80% proximal LCx, STEWARD/STEWARDESS SECOND CLASS of OM1, 90% calcific complex ostial RCA stenosis, 80% proximal RCA stenosis and patent grafts. Past History Past Medical History: CAD, hypertension, other (colon cancer) Medications and Allergies Allergies Allergy/AdvReac Type Severity Reaction Status Date / Time No Known Allergies Allergy Verified 02/12/19 18:23 Home Medications Medication Instructions Recorded Confirmed Last Taken Type Aspirin [Aspirin BABY CHEW TAB] 81 mg PO DAILY 04/03/15 07/09/19 02/11/19 History Clopidogrel [Plavix] 75 mg PO DAILY 01/25/19 07/09/19 02/11/19 History Simvastatin 20 mg PO DAILY 01/25/19 07/09/19 02/11/19 History metFORMIN XR [Glucophage XR] 500 mg PO BID 01/25/19 07/09/19 02/11/19 History amLODIPine 10 mg PO QDAY 02/12/19 07/09/19 Unknown History Acetaminophen [Acetaminophen TAB] 1 tab PO Q4H PRN #15 tablet 07/09/19 Unknown Rx Losartan [Cozaar] 100 mg PO DAILY 07/09/19 07/09/19 Unknown History Losartan [Cozaar] 100 mg PO QDAY #30 tablet 07/09/19 Unknown Rx Metoprolol [Lopressor TAB] 25 mg PO BID #60 tablet 07/09/19 Unknown Rx Nitroglycerin [Nitrostat] 0.4 mg SL Q5M PRN #15 tab 07/09/19 Unknown Rx Pantoprazole [Protonix TAB] 40 mg PO DAILY #30 tablet 07/09/19 Unknown Rx Pravastatin [Pravachol] 40 mg PO QHS #30 tablet 07/09/19 Unknown Rx glipiZIDE [Glucotrol] 10 mg PO BID 07/09/19 07/09/19 Unknown History hydroCHLOROthiazide [HCTZ] 12.5 mg PO QDAY #30 capsule 07/09/19 Unknown Rx hydroCHLOROthiazide 12.5 mg PO DAILY 07/09/19 07/09/19 Unknown History [Hydrochlorothiazide] Active Meds: Active Medications Acetaminophen (Tylenol) 650 mg PO Q4H PRN PRN Reason: Pain MILD(1-3)/Fever >100.5/LEONG Amlodipine Besylate (Amlodipine) 5 mg PO QDAY [facility] Last Admin: 07/09/19 11:50 Dose: 5 mg Documented by: Aspirin (Baby Aspirin) 81 mg PO DAILY [facility] Last Admin: 07/09/19 11:53 Dose: 81 mg Documented by: Clopidogrel Bisulfate (Plavix) 75 mg PO DAILY [facility] Last Admin: 07/09/19 11:52 Dose: Not Given Documented by: Dextrose (D50w (25gm) Syringe) 50 ml IV Q30MIN PRN; Protocol PRN Reason: Hypoglycemia Glipizide (Glucotrol) 10 mg PO BID [facility] Heparin Sodium (Porcine) (Heparin) 5,000 unit SUB-Q Q12HR [facility] Hydralazine HCl (Apresoline) 5 mg IV Q6H PRN PRN Reason: Hypertension Hydrochlorothiazide (Hctz) 12.5 mg PO QDAY [facility] Insulin Human Lispro (Humalog) 0 unit SUB-Q [facility]; Protocol Losartan Potassium (Cozaar) 100 mg PO QDAY [facility] Metformin HCl (Glucophage Xr) 500 mg PO DAILY [facility] Last Admin: 07/09/19 13:23 Dose: 500 mg Documented by: Metoprolol Tartrate (Metoprolol) 25 mg PO BID [facility] Last Admin: 07/09/19 11:52 Dose: Not Given Documented by: Ondansetron HCl (Zofran) 4 mg IV Q8H PRN PRN Reason: Nausea And Vomiting Ondansetron HCl (Zofran Odt) 4 mg PO Q8HR PRN PRN Reason: Nausea And Vomiting Pantoprazole Sodium (Protonix) 40 mg PO DAILY [facility] Pravastatin Sodium (Pravachol) 40 mg PO QHS [facility] Sodium Chloride (Sodium Chloride Flush Syringe 10 Ml) 10 ml IV BID [facility] Last Admin: 07/09/19 10:52 Dose: 10 ml Documented by: Sodium Chloride (Sodium Chloride Flush Syringe 10 Ml) 10 ml IV PRN PRN PRN Reason: LINE FLUSH Sucralfate (Carafate) 1 gm PO ACHS [facility] Last Admin: 07/09/19 11:50 Dose: 1 gm Documented by: Review of Systems All systems: negative Cardiovascular: chest pain Physical Examination Vital Signs Temp Pulse Resp BP Pulse Ox 98.0 F 82 18 167/77 99 07/09/19 00:01 07/09/19 00:01 07/09/19 00:01 07/09/19 00:01 07/09/19 00:01 General appearance: no acute distress HEENT: Positive: PERRL Neck: Positive: neck supple Cardiac: Positive: Reg Rate and Rhythm Lungs: Positive: Normal Exam Neuro: Positive: Grossly Intact Abdomen: Positive: Unremarkable Female genitourinary: deferred Skin: Positive: Clear Musculoskeletal: Normal Range of Motion Extremities: Present: normal Results 07/09/19 00:21 07/09/19 00:21 Cardiac Enzymes 07/09/19 Range/Units 09:17 CK-MB (CK-2) 4.3 H (0.0-4.0) ng/mL Lipids 07/09/19 Range/Units 06:35 Triglycerides 83 (2-149) mg/dL Cholesterol 161 (50-199) mg/dL HDL Cholesterol 54 (40-59) mg/dL Cholesterol/HDL Ratio 2.98 % CBC 07/09/19 Range/Units 00:21 WBC 7.7 (4.5-11.0) K/mm3 RBC 4.82 (3.65-5.03) M/mm3 Hgb 11.2 (10.1-14.3) gm/dl Hct 34.2 (30.3-42.9) % Plt Count 345 (140-440) K/mm3 Lymph # 1.6 (1.2-5.4) K/mm3 [place] # 0.6 (0.0-0.8) K/mm3 Eos # 0.3 (0.0-0.4) K/mm3 Baso # 0.1 (0.0-0.1) K/mm3 Comprehensive Metabolic Panel 07/09/19 Range/Units 00:21 Sodium 132 L (137-145) mmol/L Potassium 3.1 L (3.6-5.0) mmol/L Chloride 92.0 L (98-107) mmol/L Carbon Dioxide 27 (22-30) mmol/L BUN 9 (7-17) mg/dL Creatinine 0.7 (0.7-1.2) mg/dL Glucose 108 H (65-100) mg/dL Calcium 9.2 (8.4-10.2) mg/dL - Imaging and Cardiology Echo: report reviewed (01/2019: EF 50-55%, mild MR, abn LV diastolic filling pattern, minimal pericardial effusion) Cardiac cath: report reviewed (06/2018: multivessel disease with STEWARD/STEWARDESS SECOND CLASS of proximal LAD, 80% proximal LCx, STEWARD/STEWARDESS SECOND CLASS of OM1, 90% calcific complex ostial RCA stenosis, 80% proximal RCA stenosis and patent grafts. ) - EKG Interpretation EKG: sinus rhythm EKG interpretations - Telemetry EKG Rhythm: Sinus Rhythm Assessment and Plan Ms. Prieto is a 63 y/o female admitted with chest pain. Last two troponins mildly elevated, which could be d/t vasospasm; they are now downtrending. She denies any chest pain at this time. Cardiac status is currently stable. 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 Follow up with Dr. Becki Montes on 07/20/2019 at 2 pm in [place]. The patient has been seen in conjunction with Dr. Trejo, who agrees with the assessment and plan. - Patient Problems (1) Chest pain Current Visit: Yes Status: Acute Qualifiers: Chest pain type: unspecified Qualified Code(s): R07.9 - Chest pain, unspecified (2) Carotid stenosis, left Current Visit: No Status: Chronic (3) Hypokalemia Current Visit: No Status: Acute (4) H/O carotid endarterectomy Current Visit: No Status: Chronic (5) HTN (hypertension) Current Visit: No Status: Chronic Qualifiers: (6) Hx of CABG Current Visit: No Status: Chronic (7) PVD (peripheral vascular disease) Current Visit: No Status: Chronic (8) Colon cancer Current Visit: Yes Status: Chronic
[2019-07-09] MEDS ORDERED: INSULIN LISPRO 100 UNIT/ML SUB-Q SCH (16:30)
[2019-07-09] MEDS ORDERED: glipiZIDE 10 MG TAB PO SCH (22:00)
[2019-07-09] MEDS ORDERED: PRAVASTATIN 40 MG TAB PO SCH (22:00)
[2019-07-10] MEDS ORDERED: NON-FORMULARY EACH (Losartan [Cozaar] 100 MG) PO SCH (10:00)
[2019-07-10] MEDS ORDERED: HYDROCHLOROTHIAZIDE 12.5 MG PO SCH (10:00)
[2019-07-10] MEDS ORDERED: LOSARTAN 50 MG TAB PO SCH (10:00)
[2019-07-10] MEDS ORDERED: hydroCHLOROthiazide 12.5 MG CAP PO SCH (10:00)
[2019-07-10] MEDS ORDERED: NON-FORMULARY EACH (Simvastatin [Simvastatin] 20 MG) PO SCH (10:00)
[2019-07-10] MEDS ORDERED: PANTOPRAZOLE 40 MG TAB PO SCH (10:00)
[2019-07-10] MEDS ORDERED: HEPARIN 5,000 UNIT/1 ML VIAL SUB-Q SCH (22:00)
== END 2019-07-09 16:30 | disposition home or self-care (01) ==
LOC: ED 23:56 → 4A 07-09 01:59 → INTOOBSV 07-09 01:59
PROVIDERS: ADMIT Internal Medicine; ATTEND Internal Medicine
DX: R07.89 Other chest pain (principal); I10 Essential (primary) hypertension; E11.9 Type 2 diabetes mellitus without complications; E78.5 Hyperlipidemia, unspecified; K21.9 Gastro-esophageal reflux disease without esophagitis; E87.1 Hypo-osmolality and hyponatremia; E87.6 Hypokalemia; Z95.1 Presence of aortocoronary bypass graft; Z79.82 Long term (current) use of aspirin; Z79.84 Long term (current) use of oral hypoglycemic drugs; Z23 Encounter for immunization; Z87.891 Personal history of nicotine dependence
CPT/HCPCS: 36415; 71045; 80048; 80061; 82550; 82553; 82962; 84484; 85025; 90471; 90732; 93005; 93010; 99284; G0378

== ENCOUNTER 2019-08-02 09:09 | Outpatient (CLI) | payer MEDICAID ==
--- NOTE | 2019-08-02 13:15 | Mammography Report ---
DIGITAL SCREENING MAMMOGRAM WITH CAD, 08/02/2019 INDICATION: Routine screening mammography. TECHNIQUE: Digital bilateral 2D mammography was obtained in the craniocaudal and mediolateral obliq ue projections. This examination was interpreted with the benefit of Computer-Aided Detection analysi s. COMPARISON: 08/24/2016 FINDINGS: Breast Density: The breasts are heterogeneously dense, which may obscure small masses. There is no evidence of dominant mass, suspicious calcifications or architectural distortion in eithe r breast. IMPRESSION: No mammographic evidence of malignancy. Follow up recommendation: Routine yearly BI-RADS Category 2: Benign. A "normal" or negative report should not discourage follow up or biopsy of a clinically significant f inding. A written summary of these findings will be mailed to the patient. The patient will be entered into a mammography reporting system which will generate a reminder letter for the patient's next appointmen t at the appropriate interval. The [employer] recommends yearly mammograms starting at age 40 and continuing as l carlos as a woman is in good health. Breast MRI is recommended for women with an approximate 20-25% or greater lifetime risk of breast cancer, including women with a strong family history of breast or ova jose e cancer or who have been treated for Hodgkin's disease. Signer Name: Ernesto Davis MD Signed: 08/02/2019 1:11 PM Workstation Name: [id number]
== END 2019-08-02 09:10 | disposition home or self-care (01) ==
LOC: SPVWC 09:09
PROVIDERS: ATTEND Physician Assistant
DX: Z12.31 Encounter for screening mammogram for malignant neoplasm of breast (principal)
CPT/HCPCS: 77067

== ENCOUNTER 2019-09-15 02:30 | Emergency (ER) | payer MEDICARE ==
[2019-09-15 02:39] VITALS: BP 132/63
--- NOTE | 2019-09-15 05:19 | Emergency Department Report ---
ED Palpitations HPI - General Chief Complaint: Arrhythmia/Palpitations Stated Complaint: HIGH BP Time Seen by Provider: 09/15/19 04:04 Source: patient, EMS Mode of arrival: Wheelchair Limitations: No Limitations - History of Present Illness Initial Comments: This is a 64-year-old -Iranian female who presents to the emergency room with palpitations, headache, and elevated blood pressure. Past medical history of diabetes type 2, GERD, arthritis, hypertension, coronary artery disease, and bronchitis. Patient states her primary care doctor is at [facility] changed her blood pressure medication to hydralazine 2 days ago. Patient states that she is not sure if symptoms are related to the new medication. Patient states she was seen at a [employer] when symptoms started. She denies chest pain, dyspnea, edema, fever, chills, or visual changes. MD Complaint: palpitations -: This morning Context: change in medication Associated Symptoms: denies other symptoms - Related Data Home Medications Medication Instructions Recorded Confirmed Last Taken Aspirin [Aspirin BABY CHEW TAB] 81 mg PO DAILY 04/03/15 07/09/19 02/11/19 Clopidogrel [Plavix] 75 mg PO DAILY 01/25/19 07/09/19 02/11/19 Simvastatin 20 mg PO DAILY 01/25/19 07/09/19 02/11/19 metFORMIN XR [Glucophage XR] 500 mg PO BID 01/25/19 07/09/19 02/11/19 amLODIPine 10 mg PO QDAY 02/12/19 07/09/19 Unknown Losartan [Cozaar] 100 mg PO DAILY 07/09/19 07/09/19 Unknown glipiZIDE [Glucotrol] 10 mg PO BID 07/09/19 07/09/19 Unknown hydroCHLOROthiazide 12.5 mg PO DAILY 07/09/19 07/09/19 Unknown [Hydrochlorothiazide] Previous Rx's Medication Instructions Recorded Last Taken Type Acetaminophen [Acetaminophen TAB] 1 tab PO Q4H PRN #15 tablet 07/09/19 Unknown Rx Losartan [Cozaar] 100 mg PO QDAY #30 tablet 07/09/19 Unknown Rx Metoprolol [Lopressor TAB] 25 mg PO BID #60 tablet 07/09/19 Unknown Rx Nitroglycerin [Nitrostat] 0.4 mg SL Q5M PRN #15 tab 07/09/19 Unknown Rx Pantoprazole [Protonix TAB] 40 mg PO DAILY #30 tablet 07/09/19 Unknown Rx Pravastatin [Pravachol] 40 mg PO QHS #30 tablet 07/09/19 Unknown Rx hydroCHLOROthiazide [HCTZ] 12.5 mg PO QDAY #30 capsule 07/09/19 Unknown Rx Allergies Allergy/AdvReac Type Severity Reaction Status Date / Time No Known Allergies Allergy Verified 02/12/19 18:23 ED Review of Systems ROS: Stated complaint: HIGH BP Other details as noted in HPI Constitutional: denies: chills, fever Respiratory: denies: cough, shortness of breath, wheezing Cardiovascular: palpitations. denies: chest pain, dyspnea on exertion, orthopnea, edema, syncope Gastrointestinal: denies: abdominal pain, nausea, diarrhea Musculoskeletal: denies: back pain, joint swelling, arthralgia Skin: denies: rash, lesions Neurological: headache. denies: weakness, paresthesias Psychiatric: denies: anxiety, depression ED Past Medical Hx - Past Medical History Hx Hypertension: Yes Hx CVA: No Hx Heart Attack/AMI: No (denies heart attack,stated BLOCKAGE) Hx Congestive Heart Failure: No Hx Diabetes: Yes Hx Deep Vein Thrombosis: No Hx Pulmonary Embolism: No Hx GERD: Yes Hx Liver Disease: No Hx Renal Disease: No Hx Sickle Cell Disease: No Hx Arthritis: Yes (shoulders) Hx Headaches / Migraines: No Hx Seizures: No Hx Kidney Stones: No Hx Psychiatric Treatment: No Hx Asthma: No Hx COPD: No Hx Tuberculosis: No Hx Dementia: No Hx HIV: No Additional medical history: CAD, Bronchitis, herpes, colon CA - Surgical History Past Surgical History?: Yes Hx Coronary Stent: No Hx Open Heart Surgery: Yes (2012) Hx Pacemaker: No Hx Internal Defibrillator: No Hx Cholecystectomy: No Hx Appendectomy: No Hx Breast Surgery: No Additional Surgical History: Exploratory laparotomy with left hemicolectomy 02/13/2015. RIGHT AND LEFT Carotid endarterectomy,PORT to right upper chest- removed 2015 - Social History Smoking Status: Former Smoker Substance Use Type: None - Medications Home Medications: Home Medications Medication Instructions Recorded Confirmed Last Taken Type Aspirin [Aspirin BABY CHEW TAB] 81 mg PO DAILY 04/03/15 07/09/19 02/11/19 History Clopidogrel [Plavix] 75 mg PO DAILY 01/25/19 07/09/19 02/11/19 History Simvastatin 20 mg PO DAILY 01/25/19 07/09/19 02/11/19 History metFORMIN XR [Glucophage XR] 500 mg PO BID 01/25/19 07/09/19 02/11/19 History amLODIPine 10 mg PO QDAY 02/12/19 07/09/19 Unknown History Acetaminophen [Acetaminophen TAB] 1 tab PO Q4H PRN #15 tablet 07/09/19 Unknown Rx Losartan [Cozaar] 100 mg PO DAILY 07/09/19 07/09/19 Unknown History Losartan [Cozaar] 100 mg PO QDAY #30 tablet 07/09/19 Unknown Rx Metoprolol [Lopressor TAB] 25 mg PO BID #60 tablet 07/09/19 Unknown Rx Nitroglycerin [Nitrostat] 0.4 mg SL Q5M PRN #15 tab 07/09/19 Unknown Rx Pantoprazole [Protonix TAB] 40 mg PO DAILY #30 tablet 07/09/19 Unknown Rx Pravastatin [Pravachol] 40 mg PO QHS #30 tablet 07/09/19 Unknown Rx glipiZIDE [Glucotrol] 10 mg PO BID 07/09/19 07/09/19 Unknown History hydroCHLOROthiazide [HCTZ] 12.5 mg PO QDAY #30 capsule 07/09/19 Unknown Rx hydroCHLOROthiazide 12.5 mg PO DAILY 07/09/19 07/09/19 Unknown History [Hydrochlorothiazide] ED Physical Exam - General Limitations: No Limitations General appearance: alert, in no apparent distress - Respiratory Respiratory exam: Present: normal lung sounds bilaterally. Absent: respiratory distress, wheezes, rales, rhonchi, stridor, chest wall tenderness, decreased breath sounds - Cardiovascular Cardiovascular Exam: Present: regular rate, normal rhythm. Absent: systolic murmur, diastolic murmur, rubs, gallop - GI/Abdominal GI/Abdominal exam: Present: soft, normal bowel sounds. Absent: distended, tenderness, guarding, rebound, rigid - Extremities Exam Extremities exam: Present: normal inspection - Neurological Exam Neurological exam: Present: alert, oriented X3, normal gait - Psychiatric Psychiatric exam: Present: normal affect, normal mood - Skin Skin exam: Present: warm, dry, intact, normal color. Absent: rash ED Course Vital Signs 09/15/19 02:37 Pulse Rate 97 H Respiratory 16 Rate Blood Pressure 132/63 O2 Sat by Pulse 98 Oximetry ED Medical Decision Making - EKG Data -: No EKG Interpreted by Me (EKG interpreted by attending) EKG shows normal: sinus rhythm Rate: normal (No STEMI) - Medical Decision Making This is a 64-year-old female that presents to the emergency room with palpitations and a headache. Vitals are stable and patient in no acute distress. Patient is nontoxic appearing work-up: EKG interpreted by attending sinus rhythm no overt evidence of STEMI. Due to work-up and exam there is low suspicion for acute coronary syndrome, pulmonary embolus, pneumothorax, or aortic dissection, or other emergent problems. Patient denies pain. Patient took blood pressure medication in in route to the emergency room at 132/63. States palpitations have resolved. Patient instructed to continue taking hydralazine 25 mg p.o. daily as indicated by PCP and cardiology. 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 Given strict return instructions. Critical care attestation.: If time is entered above; I have spent that time in minutes in the direct care of this critically ill patient, excluding procedure time. ED Disposition Clinical Impression: History of palpitations Disposition: DC-01 TO HOME OR SELFCARE Is pt being admited?: No Condition: Stable Instructions: Palpitations (ED), DASH Eating Plan (ED), Hypertension (ED) Additional Instructions: Encourage stop smoking to reduce cardiovascular risk. Moderate caffeine consumption is acceptable. Begin and maintain aerobic exercise, with a goal of at least 30 minutes of moderate intensity, dynamic aerobic exercise (walking, jogging, cycling, or swimming) 5 days per week to total 150 minutes as tolerated or recommended by a physician. Take medication daily as prescribed. Follow up with Primary Care Provider in 2 to 3 days. Referrals: [facility] [Outside] - 3-5 Days Time of Disposition: 05:24
== END 2019-09-15 05:00 | disposition home or self-care (01) ==
LOC: ED 02:30
DX: R00.2 Palpitations (principal); I10 Essential (primary) hypertension; E11.9 Type 2 diabetes mellitus without complications; K21.9 Gastro-esophageal reflux disease without esophagitis; M13.812 Other specified arthritis, left shoulder; M13.811 Other specified arthritis, right shoulder; I25.10 Atherosclerotic heart disease of native coronary artery without angina pectoris; J40 Bronchitis, not specified as acute or chronic; Z85.038 Personal history of other malignant neoplasm of large intestine; Z98.890 Other specified postprocedural states; Z90.49 Acquired absence of other specified parts of digestive tract; Z87.891 Personal history of nicotine dependence; Z79.899 Other long term (current) drug therapy
CPT/HCPCS: 93005; 93010

== ENCOUNTER 2020-03-01 00:43 | Emergency (ER) | payer MEDICARE ==
[2020-03-01 01:00] VITALS: BP 172/72
--- NOTE | 2020-03-01 03:37 | Emergency Department Report ---
ED Neck Pain/Injury HPI - General Chief Complaint: Neck Pain/Injury Stated Complaint: RIGHT NECK PAIN Time Seen by Provider: 03/01/20 03:22 Source: patient Mode of arrival: Ambulatory Limitations: No Limitations - History of Present Illness Initial Comments: Patient is a 64-year-old female that presents emergency room with neck pain. Patient states she is having right-sided neck pain. Patient states she wanted to be checked out because she has carotid stenosis. Patient is scheduled for stenting on 03/05. Last time the patient came to the emergency room I admitted the patient to the hospitalist service and the patient was seen by Dr. Dyer. Patient states she pulled her neck while doing housework. Patient states the pain is better with rest and remaining still. Patient states that her pain has improved while in the ER. Patient states her pain was 8 out of 10 when she arrived in the ER. Patient states her pain now is a 4 out of 10. Patient denies recent travel. Patient denies recent international travel. Patient denies exposure to the novel coronavirus. Patient denies sick contacts. Patient denies fever and chills. Patient denies cough. Patient denies diarrhea. Patient denies coming in contact with anybody with symptoms of the novel coronavirus. MD Complaint: neck pain, neck injury -: Sudden Place: home Severity scale (0 -10): 4 Consistency: other (improving) Improves With: remaining still, other (rest) Worsens With: movement of neck Context: turning/bending Associated Symptoms: denies: headache, fever, numbness, tingling, weakness, vertigo, difficulty walking, swollen glands, difficulty swallowing, nausea, vomiting Treatments Prior to Arrival: none - Related Data Home Medications Medication Instructions Recorded Confirmed Last Taken Aspirin [Aspirin BABY CHEW TAB] 81 mg PO DAILY 04/03/15 02/21/20 02/11/19 hydroCHLOROthiazide 12.5 mg PO DAILY 07/09/19 02/21/20 Unknown [Hydrochlorothiazide] Ascorbic Acid [Vitamin C] 500 mg PO QDAY 02/21/20 02/21/20 Unknown Famotidine [Pepcid] 20 mg PO QDAY 02/21/20 02/21/20 Unknown Losartan [Cozaar] 50 mg PO QHS 02/21/20 02/21/20 Unknown Losartan [Cozaar] 100 mg PO QAM 02/21/20 02/21/20 Unknown Simvastatin 20 mg PO QDAY 02/21/20 02/21/20 Unknown amLODIPine 2.5 mg PO DAILY 02/21/20 02/21/20 Unknown metFORMIN [Glucophage] 500 mg PO BID 02/21/20 02/21/20 Unknown Previous Rx's Medication Instructions Recorded Last Taken Type Clopidogrel [Plavix] 75 mg PO QDAY #30 tablet 02/22/20 Unknown Rx Acetaminophen/Codeine [Tylenol 1 tab PO Q6H PRN #10 tab 03/01/20 Unknown Rx /Codeine # 3 tab] Allergies Allergy/AdvReac Type Severity Reaction Status Date / Time No Known Allergies Allergy Verified 02/12/19 18:23 ED Review of Systems ROS: Stated complaint: RIGHT NECK PAIN Other details as noted in HPI Constitutional: denies: chills, fever Eyes: denies: eye pain, eye discharge, vision change ENT: denies: ear pain, throat pain Respiratory: denies: cough, shortness of breath, wheezing Cardiovascular: denies: chest pain, palpitations Endocrine: no symptoms reported Gastrointestinal: denies: abdominal pain, nausea, diarrhea Genitourinary: denies: urgency, dysuria, discharge Musculoskeletal: denies: back pain, joint swelling, arthralgia Skin: denies: rash, lesions Neurological: denies: headache, weakness, paresthesias Psychiatric: denies: anxiety, depression Hematological/Lymphatic: denies: easy bleeding, easy bruising ED Past Medical Hx - Past Medical History Previous Medical History?: Yes Hx Hypertension: Yes Hx CVA: No Hx Heart Attack/AMI: No (denies heart attack,stated BLOCKAGE) Hx Congestive Heart Failure: No Hx Diabetes: Yes Hx Deep Vein Thrombosis: No Hx Pulmonary Embolism: No Hx GERD: Yes Hx Liver Disease: No Hx Renal Disease: No Hx Sickle Cell Disease: No Hx Arthritis: Yes (shoulders) Hx Headaches / Migraines: No Hx Seizures: No Hx Kidney Stones: No Hx Psychiatric Treatment: No Hx Asthma: No Hx COPD: No Hx Tuberculosis: No Hx Dementia: No Hx HIV: No Additional medical history: CAD, Bronchitis, herpes, colon CA - Surgical History Past Surgical History?: Yes Hx Coronary Stent: No Hx Open Heart Surgery: Yes (2012) Hx Pacemaker: No Hx Internal Defibrillator: No Hx Cholecystectomy: No Hx Appendectomy: No Hx Breast Surgery: No Additional Surgical History: Exploratory laparotomy with left hemicolectomy 02/13/2015. RIGHT AND LEFT Carotid endarterectomy,PORT to right upper chest- removed 2016 - Social History Smoking Status: Former Smoker Substance Use Type: None - Medications Home Medications: Home Medications Medication Instructions Recorded Confirmed Last Taken Type Aspirin [Aspirin BABY CHEW TAB] 81 mg PO DAILY 04/03/15 02/21/20 02/11/19 History hydroCHLOROthiazide 12.5 mg PO DAILY 07/09/19 02/21/20 Unknown History [Hydrochlorothiazide] Ascorbic Acid [Vitamin C] 500 mg PO QDAY 02/21/20 02/21/20 Unknown History Famotidine [Pepcid] 20 mg PO QDAY 02/21/20 02/21/20 Unknown History Losartan [Cozaar] 50 mg PO QHS 02/21/20 02/21/20 Unknown History Losartan [Cozaar] 100 mg PO QAM 02/21/20 02/21/20 Unknown History Simvastatin 20 mg PO QDAY 02/21/20 02/21/20 Unknown History amLODIPine 2.5 mg PO DAILY 02/21/20 02/21/20 Unknown History metFORMIN [Glucophage] 500 mg PO BID 02/21/20 02/21/20 Unknown History Clopidogrel [Plavix] 75 mg PO QDAY #30 tablet 02/22/20 Unknown Rx Acetaminophen/Codeine [Tylenol 1 tab PO Q6H PRN #10 tab 03/01/20 Unknown Rx /Codeine # 3 tab] ED Physical Exam - General Limitations: No Limitations General appearance: alert, in no apparent distress - Head Head exam: Present: atraumatic, normocephalic - Eye Eye exam: Present: normal appearance, PERRL Pupils: Present: normal accommodation - ENT ENT exam: Present: mucous membranes moist - Neck Neck exam: Present: normal inspection, tenderness (Right paraspinal tenderness. Muscle spasms noted.), full ROM. Absent: meningismus - Respiratory Respiratory exam: Present: normal lung sounds bilaterally. Absent: respiratory distress, wheezes, rales - Cardiovascular Cardiovascular Exam: Present: regular rate, normal rhythm. Absent: systolic murmur, diastolic murmur, rubs, gallop - GI/Abdominal GI/Abdominal exam: Present: soft, normal bowel sounds. Absent: distended, tenderness, guarding - Extremities Exam Extremities exam: Present: normal inspection, full ROM - Back Exam Back exam: Present: normal inspection, full ROM - Neurological Exam Neurological exam: Present: alert, oriented X3, CN II-XII intact, normal gait, reflexes normal. Absent: motor sensory deficit - Psychiatric Psychiatric exam: Present: normal affect, normal mood - Skin Skin exam: Present: warm, dry, intact, normal color. Absent: rash ED Course Vital Signs 03/01/20 03/01/20 00:51 03:09 Temperature 98.3 F Pulse Rate 76 Respiratory 18 18 Rate Blood Pressure 172/72 O2 Sat by Pulse 99 Oximetry - Reevaluation(s) Reevaluation #1: Previous diagnostics and labs reviewed with patient. I discussed all results and clinical findings with patient. I discussed plan of care with patient. Patient agrees with plan of care. Patient is stable for discharge. Patient will be discharged home. Patient given discharge instr uctions. Patient voiced understanding of discharge instructions. 03/01/20 03:41 ED Medical Decision Making - Medical Decision Making Patient is a 64-year-old female that presents emergency room with neck pain. Patient states she pulled her neck while doing housework. Patient was concerned because the patient has a long history of carotid stenosis. Patient has tenderness over the paraspinal muscles of the neck. Patient was here recently in the ER and I was the ER attending and the patient was admitted to the hospitalist service and the vascular surgery was consulted. Patient had a CTA as well. Patient's last hospital visit was reviewed. Patient not require any further evaluation. - Differential Diagnosis Neck pain, neck sprain Critical care attestation.: If time is entered above; I have spent that time in minutes in the direct care of this critically ill patient, excluding procedure time. ED Disposition Clinical Impression: Essential hypertension, benign Neck sprain Qualifiers: Encounter type: initial encounter Qualified Code(s): S13.9XXA - Sprain of joints and ligaments of unspecified parts of neck, initial encounter Disposition: DC-01 TO HOME OR SELFCARE Is pt being admited?: No Does the pt Need Aspirin: No Condition: Stable Instructions: Cervical Spine Strain (ED), Hypertension (ED) Additional Instructions: Patient to follow-up with primary care in 2 to 3 days. Patient to follow-up wi th Ortho in 2 to 3 days. Patient to follow-up with vascular surgery in 2 to 3 days. Patient to rest. Patient to increase water. Patient to avoid strenuous exercise or heavy lifting until cleared by vascular surgery and orthopedist. Patient to take Tylenol as needed for pain. Patient to take meds as directed. Patient to continue all medications. Patient to return to the ER if condition worsens, changes or new symptoms arise. Patient to monitor blood pressure at home. Patient to keep a blood pressure log. Patient is to take blood pressure log to follow-up appointments. Patient to eat a low-salt, heart healthy diet. Prescriptions: Acetaminophen/Codeine [Tylenol /Codeine # 3 tab] 1 tab PO Q6H PRN #10 tab PRN Reason: pain Referrals: JOSE DYER MD [Staff Physician] - 2-3 Days NURY ALBERTS MD [Staff Physician] - 2-3 Days Time of Disposition: 03:38
== END 2020-03-01 04:14 | disposition home or self-care (01) ==
LOC: ED 00:43
DX: S13.9XXA Sprain of joints and ligaments of unspecified parts of neck, initial encounter (principal); I10 Essential (primary) hypertension; E11.9 Type 2 diabetes mellitus without complications; I25.10 Atherosclerotic heart disease of native coronary artery without angina pectoris; K21.9 Gastro-esophageal reflux disease without esophagitis; M19.012 Primary osteoarthritis, left shoulder; M19.011 Primary osteoarthritis, right shoulder; Z98.890 Other specified postprocedural states; Z79.899 Other long term (current) drug therapy; Z87.891 Personal history of nicotine dependence; X58.XXXA Exposure to other specified factors, initial encounter; Y93.89 Activity, other specified; Y92.009 Unspecified place in unspecified non-institutional (private) residence as the place of occurrence of the external cause; Y99.8 Other external cause status
CPT/HCPCS: 99283

== ENCOUNTER 2020-03-08 22:00 | Emergency (ER) | payer MEDICARE ==
[2020-03-08] MEDS ORDERED: ASPIRIN 325 MG TAB PO ONE (22:37)
--- NOTE | 2020-03-08 23:09 | XRay Report ---
CHEST 1 VIEW, 03/08/2020 10:55 PM CLINICAL INFORMATION/INDICATION: Chest pain COMPARISON: Chest radiograph, 01/08/2020 FINDINGS: SUPPORT DEVICES: None. HEART: The cardiac silhouette is normal in size. LUNGS/PLEURA: The lungs are well expanded and appear clear of focal airspace disease or significant p leural effusion. ADDITIONAL FINDINGS: No additional acute findings. Changes from previous median sternotomy are again noted. IMPRESSION: 1. No evidence of acute cardiopulmonary process. Signer Name: Shonda Almazan MD Signed: 03/08/2020 11:05 PM Workstation Name: [id number]
[2020-03-08 23:42] LABS: Blood Urea Nitrogen 9 mg/dL (7-17); Hemolysis Index 0
[2020-03-08 23:46] LABS: BUN/Creatinine Ratio 15
[2020-03-08 23:47] LABS: Basophils % (Auto) 0.5 % (0.0-1.8); Eosinophils # (Auto) 0.2 K/mm3 (0.0-0.4); Eosinophils % (Auto) 2.9 % (0.0-4.3); Hematocrit 33.5 % (30.3-42.9); Lymphocytes # (Auto) 1.9 K/mm3 (1.2-5.4); Lymphocytes % (Auto) 25.7 % (13.4-35.0); Mean Corpuscular HGB Conc 33 % (30-34); Monocytes # (Auto) 0.5 K/mm3 (0.0-0.8); Monocytes % (Auto) 6.4 % (0.0-7.3); Platelet Count 343 K/mm3 (140-440); Red Blood Count 4.84 M/mm3 (3.65-5.03); Red Cell Distribution Width 15.4 % (13.2-15.2)
[2020-03-08 23:52] LABS: Mean Corpuscular Volume 69 fl (79-97)
[2020-03-09 03:05] VITALS: BP 117/59
--- NOTE | 2020-03-09 03:19 | Emergency Department Report ---
ED Chest Pain HPI - General Chief Complaint: Chest Pain Stated Complaint: CHEST TIGHTNESS Time Seen by Provider: 03/09/20 02:11 Source: patient Mode of arrival: Ambulatory Limitations: No Limitations - History of Present Illness Initial Comments: Mrs. Bui is a 64-year-old female with history of CAD, hypertension, hyperlipidemia, colon cancer in remission, three-vessel bypass who presents with elevated blood pressure. She felt that her blood pressures going up. She felt pressure in her eyes. This evening she had her blood pressure [place] the fire station. Systolic blood pressure was 230 mmHg. She took her 10 PM dose of medication earlier than scheduled at 8 PM. She then developed mild chest tightness 3 out of 10. Pain has been persistent. She was concerned that the chest pain was related to chest wall pain since her sternotomy years ago status post CABG. Pain is not associated with inspiration. No shortness of breath. No vomiting. No radiation of the pain. Patient has right carotid artery stenosis. She has [facility] planned at [facility] within the next few few weeks MD Complaint: chest pain -: Gradual, This evening Onset: during rest Pain Location: substernal Severity: mild (3 out of 10 on my exam) Severity scale (0 -10): 6 Quality: dull, pressure Consistency: constant Improves With: nothing Worsens With: nothing re: denies: nausea, vomting, dyspnea, sense of impending doom Other Symptoms: denies: cough - Related Data Home Medications Medication Instructions Recorded Confirmed Last Taken Aspirin [Aspirin BABY CHEW TAB] 81 mg PO DAILY 04/03/15 02/21/20 02/11/19 hydroCHLOROthiazide 12.5 mg PO DAILY 07/09/19 02/21/20 Unknown [Hydrochlorothiazide] Ascorbic Acid [Vitamin C] 500 mg PO QDAY 02/21/20 02/21/20 Unknown Famotidine [Pepcid] 20 mg PO QDAY 02/21/20 02/21/20 Unknown Losartan [Cozaar] 50 mg PO QHS 02/21/20 02/21/20 Unknown Losartan [Cozaar] 100 mg PO QAM 02/21/20 02/21/20 Unknown Simvastatin 20 mg PO QDAY 02/21/20 02/21/20 Unknown amLODIPine 2.5 mg PO DAILY 02/21/20 02/21/20 Unknown metFORMIN [Glucophage] 500 mg PO BID 02/21/20 02/21/20 Unknown Previous Rx's Medication Instructions Recorded Last Taken Type Clopidogrel [Plavix] 75 mg PO QDAY #30 tablet 02/22/20 Unknown Rx Acetaminophen/Codeine [Tylenol 1 tab PO Q6H PRN #10 tab 03/01/20 Unknown Rx /Codeine # 3 tab] Allergies Allergy/AdvReac Type Severity Reaction Status Date / Time No Known Allergies Allergy Verified 02/12/19 18:23 Heart Score - HEART Score History: Slightly suspicious EKG: Non-specific Age: > 65 Risk factors: > 3 risk factors or hx of atherosclerotic disease Troponin: < normal limit HEART Score: 5 ED Review of Systems ROS: Stated complaint: CHEST TIGHTNESS Other details as noted in HPI Comment: All other systems reviewed and negative Constitutional: denies: fever, malaise Respiratory: denies: cough, shortness of breath Cardiovascular: chest pain ED Past Medical Hx - Past Medical History Previous Medical History?: Yes Hx Hypertension: Yes Hx CVA: No Hx Heart Attack/AMI: (denies heart attack,stated BLOCKAGE) Hx Congestive Heart Failure: No Hx Diabetes: Yes Hx Deep Vein Thrombosis: No Hx Pulmonary Embolism: No Hx GERD: Yes Hx Liver Disease: No Hx Renal Disease: No Hx Sickle Cell Disease: No Hx Arthritis: Yes (shoulders) Hx Headaches / Migraines: No Hx Seizures: No Hx Kidney Stones: No Hx Psychiatric Treatment: No Hx Asthma: No Hx COPD: No Hx Tuberculosis: No Hx Dementia: No Hx HIV: No Additional medical history: CAD, Bronchitis, herpes, colon CA - Surgical History Past Surgical History?: Yes Hx Coronary Stent: No Hx Open Heart Surgery: Yes (2012) Hx Pacemaker: No Hx Internal Defibrillator: No Hx Cholecystectomy: No Hx Appendectomy: No Hx Breast Surgery: No Additional Surgical History: Exploratory laparotomy with left hemicolectomy 02/13/2015. RIGHT AND LEFT Carotid endarterectomy,PORT to right upper chest- removed 2015 - Social History Smoking Status: Never Smoker Substance Use Type: None - Medications Home Medications: Home Medications Medication Instructions Recorded Confirmed Last Taken Type Aspirin [Aspirin BABY CHEW TAB] 81 mg PO DAILY 04/03/15 02/21/20 02/11/19 History hydroCHLOROthiazide 12.5 mg PO DAILY 07/09/19 02/21/20 Unknown History [Hydrochlorothiazide] Ascorbic Acid [Vitamin C] 500 mg PO QDAY 02/21/20 02/21/20 Unknown History Famotidine [Pepcid] 20 mg PO QDAY 02/21/20 02/21/20 Unknown History Losartan [Cozaar] 50 mg PO QHS 02/21/20 02/21/20 Unknown History Losartan [Cozaar] 100 mg PO QAM 02/21/20 02/21/20 Unknown History Simvastatin 20 mg PO QDAY 02/21/20 02/21/20 Unknown History amLODIPine 2.5 mg PO DAILY 02/21/20 02/21/20 Unknown History metFORMIN [Glucophage] 500 mg PO BID 02/21/20 02/21/20 Unknown History Clopidogrel [Plavix] 75 mg PO QDAY #30 tablet 02/22/20 Unknown Rx Acetaminophen/Codeine [Tylenol 1 tab PO Q6H PRN #10 tab 03/01/20 Unknown Rx /Codeine # 3 tab] ED Physical Exam - General Limitations: No Limitations General appearance: alert, in no apparent distress, other (Pleasant, smiling, a mbulatory without difficulty, talkative) - Head Head exam: Present: atraumatic, normocephalic - Eye Eye exam: Present: normal appearance - ENT ENT exam: Present: mucous membranes moist - Neck Neck exam: Present: normal inspection, full ROM - Respiratory Respiratory exam: Present: normal lung sounds bilaterally. Absent: respiratory distress, wheezes, rales - Cardiovascular Cardiovascular Exam: Present: regular rate, normal rhythm, normal heart sounds. Absent: systolic murmur, diastolic murmur, rubs, gallop - GI/Abdominal GI/Abdominal exam: Present: soft, normal bowel sounds. Absent: distended, tenderness, guarding, rebound - Extremities Exam Extremities exam: Present: normal inspection - Neurological Exam Neurological exam: Present: alert, oriented X3 - Psychiatric Psychiatric exam: Present: normal affect, normal mood - Skin Skin exam: Present: warm, dry, intact, normal color. Absent: rash ED Course Vital Signs 03/08/20 03/09/20 03/09/20 22:26 02:16 02:18 Temperature 98.1 F 98.1 F Pulse Rate 79 61 Respiratory 18 18 Rate Blood Pressure 155/68 Blood Pressure 138/65 [Right] O2 Sat by Pulse 98 100 99 Oximetry 03/09/20 03/09/20 02:30 02:45 Temperature Pulse Rate 58 L 58 L Respiratory 17 17 Rate Blood Pressure 122/60 117/59 Blood Pressure [Right] O2 Sat by Pulse 99 100 Oximetry OLIVA score - Oliva Score Age > 65: (0) No Aspirin use within the Past 7 Days: (1) Yes 3 or more CAD Risk Factors: (1) Yes 2 or more Angina events in past 24 hrs: (0) No Known CAD with more than 50% Stenosis: (0) No Elevated Cardiac Markers: (0) No ST Deviation Greater than 0.5mm: (0) No OLIVA Score: 2 ED Medical Decision Making - Lab Data Result diagrams: 03/08/20 23:03 03/08/20 23:03 Laboratory Results - last 24 hr 03/08/20 03/08/20 03/09/20 23:03 23:03 01:28 WBC 7.5 RBC 4.84 Hgb 11.0 Hct 33.5 MCV 69 L MCH 23 L MCHC 33 RDW 15.4 H Plt Count 343 Lymph % (Auto) 25.7 [place] % (Auto) 6.4 Eos % (Auto) 2.9 Baso % (Auto) 0.5 Lymph # 1.9 [place] # 0.5 Eos # 0.2 Baso # 0.0 Seg Neutrophils % 64.5 Seg Neutrophils # 4.8 Sodium 134 L Potassium 3.7 Chloride 93.5 L Carbon Dioxide 27 Anion Gap 17 BUN 9 Creatinine 0.6 Estimated GFR > 60 BUN/Creatinine Ratio 15 Glucose 97 Calcium 11.0 H Troponin T < 0.010 < 0.010 - EKG Data -: EKG Interpreted by Ut EKG shows normal: sinus rhythm, axis, intervals, ST-T waves Rate: normal - EKG Data When compared to previous EKG there are: no significant change Interpretation: nonspecific ST-T wave desi 03/09/20 03:16 EKG interpreted by nc EKG obtained 2210 Normal sinus rhythm rate 75 bpm normal axis normal intervals no ST-T signs of ischemia unchanged from EKG obtained 02/20/2020 - Radiology Data Radiology results: report reviewed Chest radiograph no acute findings - Medical Decision Making Is a 64-year-old female with history of CAD status post CABG, peripheral vascular disease, right carotid artery stenosis and multiple associated cardiovascular risk factors. She presents with atypical chest pain. Considering patient has 3-10 chest pressure without associated shortness of breath vomiting nausea. I do not suspect stable or unstable angina in spite heart score 5. Patient has been compliant with Plavix therapy. Due to nature pain I do not suspect acute emergent cause such as aortic dissection or pulmonary embolism. Patient understands to return to the ER for any concerns or recurrent symptoms. She will follow-up with her rrts Dr. Montes as necessary. Acute myocardial infarction has been ruled out with troponin x2 Critical care attestation.: If time is entered above; I have spent that time in minutes in the direct care of this critically ill patient, excluding procedure time. ED Disposition Clinical Impression: CAD (coronary artery disease), Chest pain Disposition: DC-01 TO HOME OR SELFCARE Is pt being admited?: No Does the pt Need Aspirin: No Condition: Stable Instructions: Chest Pain (ED) Referrals: PRIMARY CARE, [Primary Care Provider] - 3-5 Days
== END 2020-03-09 03:30 | disposition home or self-care (01) ==
LOC: ED 22:00
DX: I25.10 Atherosclerotic heart disease of native coronary artery without angina pectoris (principal); R07.89 Other chest pain; I10 Essential (primary) hypertension; E11.9 Type 2 diabetes mellitus without complications; M19.91 Primary osteoarthritis, unspecified site; K21.9 Gastro-esophageal reflux disease without esophagitis; Z98.890 Other specified postprocedural states; Z79.84 Long term (current) use of oral hypoglycemic drugs; Z79.899 Other long term (current) drug therapy
CPT/HCPCS: 36415; 71045; 80048; 84484; 85025; 93005

== ENCOUNTER 2020-03-20 10:56 | Outpatient (CLI) | payer MEDICARE ==
[2020-03-20 11:50] LABS: Blood Urea Nitrogen 8 mg/dL (7-17)
--- NOTE | 2020-03-20 13:49 | Cat Scan Report ---
CT CHEST WITH CONTRAST INDICATION / CLINICAL INFORMATION: COLON CANCER/COMPARE TO LAST /C18.6Malignant neoplasm of desce. TECHNIQUE: Axial CT images were obtained through the chest after 100 cc of Omnipaque 300 IV contrast. Sagittal a nd coronal reformatted images. All CT scans at this location are performed using CT dose reduction fo r ALARA by means of automated exposure control. COMPARISON: 02/16/2016 CTA chest FINDINGS: HEART: No significant abnormality. Previous sternotomy is noted. THORACIC AORTA: No significant abnormality. MEDIASTINUM and KI: No significant abnormality. LUNGS: No acute air space or interstitial disease. PLEURA: No significant pleural effusion. No pneumothorax. SKELETAL SYSTEM: No significant abnormality. ADDITIONAL FINDINGS: None. IMPRESSION: No significant abnormality. No evidence for metastatic disease to the chest. CT ABDOMEN AND PELVIS WITH CONTRAST HISTORY: COLON CANCER/COMPARE TO LAST C18.6Malignant neoplasm of desce COMPARISON: 01/25/2019 TECHNIQUE: Axial CT images were obtained through the abdomen and pelvis after 100 cc of Omnipaque 300 intravenously. Sagittal and coronal reformatted images. All CT scans at this location are performed using CT dose reduction for ALARA by means of automated exposure control. FINDINGS: CT ABDOMEN: Liver: No significant abnormality. Biliary: No significant abnormality. Spleen: No significant abnormality. Unenlarged. Pancreas: No significant abnormality. Adrenals: No significant abnormality. Kidneys: No significant abnormality. Lymphatics: No lymphadenopathy. Vasculature: Moderate atherosclerotic disease is identified throughout the abdominal aorta and iliac arteries. Minimal fusiform dilatation of the distal aorta measures 2.3 cm. Bowel/Peritoneum: An anastomosis site in the proximal descending colon is noted and unchanged. Focal dilatation of the colon with fecal retention is again seen in this area and unchanged. No recurrent G I mass, obstruction, free fluid or free air. Normal appendix. CT PELVIS: : No significant abnormality. Osseous Structures: No significant abnormality. Additional Findings: None IMPRESSION: Stable findings since 01/25/2019. No evidence for disease recurrence or metastasis in the abdomen. Signer Name: Meliton Faustin Jr, MD Signed: 03/20/2020 1:45 PM Workstation Name: [id number]
== END 2020-03-20 10:57 | disposition home or self-care (01) ==
LOC: CT 10:56
PROVIDERS: ATTEND Internal Medicine Hematology & Oncology
DX: C18.6 Malignant neoplasm of descending colon (principal); M54.9 Dorsalgia, unspecified
CPT/HCPCS: 36415; 71260; 74177; 82565; 84520; Q9967

== ENCOUNTER 2020-07-04 14:43 | Emergency (ER) | payer MEDICARE ==
[2020-07-04] MEDS ORDERED: MORPHINE 4 MG/1 ML INJ IV ONE (15:22)
[2020-07-04] MEDS ORDERED: ONDANSETRON 4 MG/2 ML INJ IV ONE (15:22)
--- NOTE | 2020-07-04 15:56 | XRay Report ---
LEFT HIP 2 VIEWS INDICATION: fall, deformity. COMPARISON: None. IMPRESSION: No acute osseous or soft tissue abnormality. No significant DJD. Signer Name: Meliton Faustin Jr, MD Signed: 07/04/2020 3:51 PM Workstation Name: [id number]
--- NOTE | 2020-07-04 16:53 | Emergency Department Report ---
HPI - General Chief Complaint: Fall Time Seen by Provider: 07/04/20 15:32 - HPI HPI: Room 25 The patient is a 64-year-old female present with a chief complaint of pain after fall. [place] causing her to twist and fall landing on her left side. Patient denies head injury or loss of consciousness. Patient complains of pain in the left shoulder, left hip and left knee with the pain being greatest in the left hip. Patient was administered pain medication prior to my evaluation now gives her pain a score of 5/10. ED Past Medical Hx - Past Medical History Hx Hypertension: Yes Hx Heart Attack/AMI: (denies heart attack,stated BLOCKAGE) Hx Diabetes: Yes Hx GERD: Yes Hx Arthritis: Yes (shoulders) Additional medical history: CAD, Bronchitis, herpes, colon CA - Surgical History Hx Open Heart Surgery: Yes (2012) Additional Surgical History: Exploratory laparotomy with left hemicolectomy 02/13/2015. RIGHT AND LEFT Carotid endarterectomy,PORT to right upper chest- removed 2015 - Family History Family history: no significant - Social History Smoking Status: Former Smoker (None x2 years) Substance Use Type: None - Medications Home Medications: Home Medications Medication Instructions Recorded Confirmed Last Taken Type Aspirin [Aspirin BABY CHEW TAB] 81 mg PO DAILY 04/03/15 02/21/20 02/11/19 History hydroCHLOROthiazide 12.5 mg PO DAILY 07/09/19 02/21/20 Unknown History [Hydrochlorothiazide] Ascorbic Acid [Vitamin C] 500 mg PO QDAY 02/21/20 02/21/20 Unknown History Famotidine [Pepcid] 20 mg PO QDAY 02/21/20 02/21/20 Unknown History Losartan [Cozaar] 50 mg PO QHS 02/21/20 02/21/20 Unknown History Losartan [Cozaar] 100 mg PO QAM 02/21/20 02/21/20 Unknown History Simvastatin 20 mg PO QDAY 02/21/20 02/21/20 Unknown History amLODIPine 2.5 mg PO DAILY 02/21/20 02/21/20 Unknown History metFORMIN [Glucophage] 500 mg PO BID 02/21/20 02/21/20 Unknown History Clopidogrel [Plavix] 75 mg PO QDAY #30 tablet 02/22/20 Unknown Rx Acetaminophen/Codeine [Tylenol 1 tab PO Q6H PRN #10 tab 03/01/20 Unknown Rx /Codeine # 3 tab] HYDROcodone/APAP 5-325 [[place] 1 - 2 each PO Q6HR PRN #10 tablet 07/04/20 Unknown Rx 5/325] ED Review of Systems ROS: Stated complaint: LEFT HIP Other details as noted in HPI Constitutional: no symptoms reported Eyes: denies: eye pain ENT: denies: throat pain Respiratory: no symptoms reported Cardiovascular: denies: chest pain Endocrine: no symptoms reported Gastrointestinal: denies: abdominal pain Genitourinary: denies: dysuria Musculoskeletal: myalgia Skin: change in color (Hematoma left hip) Neurological: denies: headache Physical Exam - Physical Exam Vital Signs: Vital Signs 07/04/20 15:01 Temperature 99 F Pulse Rate 100 H Respiratory 18 Rate Blood Pressure 196/99 O2 Sat by Pulse 99 Oximetry Physical Exam: GENERAL: The patient is well-developed well-nourished female lying on stretcher not appearing to be in acute distress. [] HEENT: Normocephalic. Atraumatic. Extraocular motions are intact. Patient has moist mucous membranes. NECK: Supple. Trachea midline CHEST/LUNGS: Clear to auscultation. There is no respiratory distress noted. HEART/CARDIOVASCULAR: Regular. There is no tachycardia. There is no gallop rub or murmur. ABDOMEN: Abdomen is soft, nontender. Patient has normal bowel sounds. There is no abdominal distention. SKIN: There is a racquetball sized hematoma to the left hip. Smaller quarter sized hematoma to the lateral aspect of the left knee. There is no edema. There is no diaphoresis. NEURO: The patient is awake, alert, and oriented. The patient is cooperative. The patient has no focal neurologic deficits. The patient has normal speech and gait. MUSCULOSKELETAL: There is tenderness to palpation of the left knee, left hip and left shoulder ED Course Vital Signs 07/04/20 15:01 Temperature 99 F Pulse Rate 100 H Respiratory 18 Rate Blood Pressure 196/99 O2 Sat by Pulse 99 Oximetry ED Medical Decision Making - Radiology Data Radiology results: report reviewed (Left hip x-ray, left shoulder x-ray, left knee x-ray), image reviewed (Left hip x-ray left shoulder x-ray, left knee x- ray) interpreted by me: Left hip x-ray-no acute fracture seen Left shoulder x-ray-no acute fracture, no dislocation, no AC separation Left knee x-ray-no acute fracture, no dislocation, no foreign body seen Left knee x-ray (read by radiologist)-no acute fracture or subluxation. Advan edmundo tricompartmental degenerative osteoarthrosis. Some ossific densities visualized within the joint line possibly representing intra-articular body. No significant effusion. Left shoulder x-ray (read by radiologist)-no acute fracture or subluxation. Moderate degenerative osteoarthrosis Left hip x-ray (read by radiologist)-no acute osseous or soft tissue abnormality. No significant DJD. - Differential Diagnosis Hip fracture, hip contusion, hematoma, fibula fracture, shoulder separation Critical care attestation.: If time is entered above; I have spent that time in minutes in the direct care of this critically ill patient, excluding procedure time. ED Disposition Clinical Impression: Hip hematoma, left, Contusion of left shoulder, Contusion of left knee Disposition: TO HOME OR SELFCARE Is pt being admited?: No Does the pt Need Aspirin: No Condition: Stable Additional Instructions: Return to the emergency department should you develop worsening symptoms, i nability to tolerate food or liquids, high fever or any other concerns Prescriptions: HYDROcodone/APAP 5-325 [[place] 5/325] 1 - 2 each PO Q6HR PRN #10 tablet PRN Reason: Pain Referrals: MARIELOS SOLORZANO MD [Primary Care Provider] - 3-5 Days NURY ALBERTS MD [Staff Physician] - 3-5 Days Time of Disposition: 17:53
[2020-07-04] MEDS ORDERED: KETOROLAC 30 MG/1 ML INJ IV ONE (17:02)
--- NOTE | 2020-07-04 17:18 | XRay Report ---
LEFT KNEE 3 VIEW(S) INDICATION / CLINICAL INFORMATION: Pain after fall COMPARISON: None available. FINDINGS: BONES / JOINT(S): No acute fracture or subluxation. Advanced tricompartmental degenerative osteoarthr osis. Some ossific density is visualized within the joint line possibly representing intra-articular body. No significant effusion. SOFT TISSUES: No significant abnormality. ADDITIONAL FINDINGS: Atherosclerotic calcification. Signer Name: Nabil Duran MD Signed: 07/04/2020 5:14 PM Workstation Name: [id number]
--- NOTE | 2020-07-04 17:19 | XRay Report ---
LEFT SHOULDER 3 VIEW(S) INDICATION / CLINICAL INFORMATION: Pain after fall COMPARISON: None available. FINDINGS: BONES / JOINT(S): No acute fracture or subluxation. Moderate degenerative osteoarthrosis. SOFT TISSUES: No significant abnormality. ADDITIONAL FINDINGS: None. Signer Name: Nabil Duran MD Signed: 07/04/2020 5:14 PM Workstation Name: [id number]
[2020-07-04 20:01] VITALS: BP 148/71
== END 2020-07-04 18:55 | disposition home or self-care (01) ==
LOC: ED 14:43
DX: S70.02XA Contusion of left hip, initial encounter (principal); S40.012A Contusion of left shoulder, initial encounter; I25.2 Old myocardial infarction; I10 Essential (primary) hypertension; E11.9 Type 2 diabetes mellitus without complications; M19.91 Primary osteoarthritis, unspecified site; K21.9 Gastro-esophageal reflux disease without esophagitis; Z87.891 Personal history of nicotine dependence; Z98.890 Other specified postprocedural states; Z79.899 Other long term (current) drug therapy; W19.XXXA Unspecified fall, initial encounter; Y93.89 Activity, other specified; Y92.89 Other specified places as the place of occurrence of the external cause; Y99.8 Other external cause status
CPT/HCPCS: 73030; 73502; 73562; 96374; 99284; J1885

== ENCOUNTER 2020-08-28 16:22 | Emergency (ER) | payer MEDICARE ==
[2020-08-28] MEDS ORDERED: SODIUM CHLORIDE 0.9% 1000 ML 1,000 ML IV ONE (16:34)
[2020-08-28] MEDS ORDERED: ACETAMINOPHEN 325 MG TAB PO ONE (16:35)
--- NOTE | 2020-08-28 16:41 | Event Note ---
ED Screening Note Date of service: 08/28/20 Time: 16:20 ED Screening Note: Patient is a 65 yo AA female with a h/o Colon cancer in remission, Carotid stenosis s/p stents, CAD s/p CABG, HTN and NIDDM who presents to the ED with c/o acute onset persistent severe headache, lightheadedness and nausea for the last 4 days after receiving her first dose of Moderna Covid-19 vaccine 5 days ago. Patient states that she has not taken any medication for these symptoms. Patient also states that she has had no appetite and that her blood sugar has been in the 200s. Patient denies chest pain, dyspnea, dizziness, vision changes, vomiting, fever and chills, abdominal pain, sore throat or cough and seizures. This initial assessment/diagnostic orders/clinical plan/treatment(s) is/are subject to change based on patients health status, clinical progression and re- assessment by fellow clinical providers in the ED. Further treatment and workup at subsequent clinical providers discretion. Patient/guardian urged not to elope from the ED as their condition may be serious if not clinically assessed and managed. Initial orders include: EKG, CBC, CMP, Troponin, CXR, NS 1 L IV bolus
[2020-08-28 16:51] LABS: Basophils # (Auto) 0.1 K/mm3 (0.0-0.1); Basophils % (Auto) 0.8 % (0.0-1.8); Eosinophils # (Auto) 0.1 K/mm3 (0.0-0.4); Eosinophils % (Auto) 1.5 % (0.0-4.3); Hematocrit 34.2 % (30.3-42.9); Hemoglobin 11.1 gm/dl (10.1-14.3); Lymphocytes % (Auto) 14.5 % (13.4-35.0); Mean Corpuscular HGB Conc 33 % (30-34); Monocytes # (Auto) 0.7 K/mm3 (0.0-0.8); Monocytes % (Auto) 10.3 % (0.0-7.3); Platelet Count 277 K/mm3 (140-440); Red Blood Count 4.95 M/mm3 (3.65-5.03); Red Cell Distribution Width 16.8 % (13.2-15.2)
[2020-08-28 16:54] LABS: Mean Corpuscular Volume 69 fl (79-97)
--- NOTE | 2020-08-28 17:01 | XRay Report ---
CHEST PA AND LATERAL VIEWS INDICATION: lightheadedness. COMPARISON: 07/31/2020 FINDINGS: Support devices: None. Heart: Within normal limits. Lungs/Pleura: No acute pulmonary or pleural findings. IMPRESSION: 1. No acute findings. Signer Name: Rory Silva MD Signed: 08/28/2020 4:56 PM Workstation Name: [id number]
[2020-08-28 17:14] LABS: Alanine Aminotransferase 13 units/L (7-56); Albumin 4.7 g/dL (3.9-5); Blood Urea Nitrogen 9 mg/dL (7-17); Calcium 9.3 mg/dL (8.4-10.2); Hemolysis Index 4
[2020-08-28 17:16] LABS: BUN/Creatinine Ratio 15
[2020-08-28] MEDS: ONDANSETRON 4 MG/2 ML INJ IV ONE ×2 (17:38→18:42)
[2020-08-28] MEDS ORDERED: hydrALAZINE 20 MG/1 ML INJ IV ONE (18:01)
[2020-08-28] MEDS ORDERED: METOCLOPRAMIDE 10 MG/2 ML INJ IV ONE (18:02)
[2020-08-28] MEDS ORDERED: BUTALB/ACETAMINOPHEN/CAFFEINE TAB PO ONE ×2 (18:02→18:06)
[2020-08-28] MEDS ORDERED: diphenhydrAMINE 50 MG/ML VIAL IV ONE (18:02)
[2020-08-28 18:09] VITALS: BP 143/57
--- NOTE | 2020-08-28 18:14 | Emergency Department Report ---
ED General Adult HPI - General Chief complaint: Headache Stated complaint: BLOOD PRESSURE/HEADACHE/DIZZY Time Seen by Provider: 08/28/20 17:47 Source: patient Mode of arrival: Ambulatory Limitations: No Limitations - History of Present Illness Initial comments: The patient presents to the emergency department with a chief complaint of a headache that has been present since Tuesday of this week. Patient states she received her first Covid vaccine on Tuesday and since that time has had a headache that is located in the back of her head that she describes as throbbing in nature. Patient states is not the worst headache of her life. Patient also complains of fluctuation of her blood pressure as well since Tuesday. Patient denies chest pain, shortness breath, or abdominal pain. -: Sudden Location: head Severity scale (0 -10): 5 Quality: aching, other (Throbbing) Consistency: constant Improves with: none Worsens with: none Associated Symptoms: denies other symptoms Treatments Prior to Arrival: none - Related Data Home Medications Medication Instructions Recorded Confirmed Last Taken Aspirin [Aspirin BABY CHEW TAB] 81 mg PO DAILY 04/03/15 02/21/20 02/11/19 hydroCHLOROthiazide 12.5 mg PO DAILY 07/09/19 02/21/20 Unknown [Hydrochlorothiazide] Ascorbic Acid [Vitamin C] 500 mg PO QDAY 02/21/20 02/21/20 Unknown Famotidine [Pepcid] 20 mg PO QDAY 02/21/20 02/21/20 Unknown Losartan [Cozaar] 50 mg PO QHS 02/21/20 02/21/20 Unknown Losartan [Cozaar] 100 mg PO QAM 02/21/20 02/21/20 Unknown Simvastatin 20 mg PO QDAY 02/21/20 02/21/20 Unknown amLODIPine 2.5 mg PO DAILY 02/21/20 02/21/20 Unknown metFORMIN [Glucophage] 500 mg PO BID 02/21/20 02/21/20 Unknown Previous Rx's Medication Instructions Recorded Last Taken Type Clopidogrel [Plavix] 75 mg PO QDAY #30 tablet 02/22/20 Unknown Rx ISOSORBIDE MONOnitrate [Imdur ER] 30 mg PO QDAY #30 tablet 08/02/20 Unknown Rx Metoprolol [Lopressor TAB] 25 mg PO BID #60 tablet 08/02/20 Unknown Rx Butalb/Acetamin/Caff 50-325-40 1 tab PO Q6HR PRN #24 tab 08/28/20 Unknown Rx [Fioricet] Allergies Allergy/AdvReac Type Severity Reaction Status Date / Time No Known Allergies Allergy Verified 08/28/20 16:26 ED Review of Systems ROS: Stated complaint: BLOOD PRESSURE/HEADACHE/DIZZY Other details as noted in HPI Comment: All other systems reviewed and negative Constitutional: denies: chills, fever Eyes: denies: eye pain, eye discharge, vision change ENT: denies: ear pain, throat pain Respiratory: denies: cough, shortness of breath, wheezing Cardiovascular: denies: chest pain, palpitations Endocrine: no symptoms reported Gastrointestinal: denies: abdominal pain, nausea, diarrhea Genitourinary: denies: urgency, dysuria, discharge Musculoskeletal: denies: back pain, joint swelling, arthralgia Skin: denies: rash, lesions Neurological: headache. denies: weakness, paresthesias Psychiatric: denies: anxiety, depression Hematological/Lymphatic: denies: easy bleeding, easy bruising ED Past Medical Hx - Past Medical History Hx Hypertension: Yes Hx CVA: No Hx Heart Attack/AMI: (denies heart attack,stated BLOCKAGE) Hx Congestive Heart Failure: No Hx Diabetes: Yes Hx Deep Vein Thrombosis: No Hx Pulmonary Embolism: No Hx GERD: Yes Hx Liver Disease: No Hx Renal Disease: No Hx of Cancer: Yes (COLON) Hx Sickle Cell Disease: No Hx Arthritis: Yes (shoulders) Hx Headaches / Migraines: No Hx Seizures: No Hx Kidney Stones: No Hx Psychiatric Treatment: No Hx Asthma: No Hx COPD: No Hx Tuberculosis: No Hx Dementia: No Hx HIV: No Additional medical history: CAD, Bronchitis, herpes, colon CA - Surgical History Hx Coronary Stent: No Hx Open Heart Surgery: Yes (2012) Hx Pacemaker: No Hx Internal Defibrillator: No Hx Cholecystectomy: No Hx Appendectomy: No Hx Breast Surgery: No Additional Surgical History: Exploratory laparotomy with left hemicolectomy 02/13/2015. RIGHT AND LEFT Carotid endarterectomy,PORT to right upper chest- removed 2015 - Social History Smoking Status: Former Smoker Substance Use Type: None - Medications Home Medications: Home Medications Medication Instructions Recorded Confirmed Last Taken Type Aspirin [Aspirin BABY CHEW TAB] 81 mg PO DAILY 04/03/15 02/21/20 02/11/19 History hydroCHLOROthiazide 12.5 mg PO DAILY 07/09/19 02/21/20 Unknown History [Hydrochlorothiazide] Ascorbic Acid [Vitamin C] 500 mg PO QDAY 02/21/20 02/21/20 Unknown History Famotidine [Pepcid] 20 mg PO QDAY 02/21/20 02/21/20 Unknown History Losartan [Cozaar] 50 mg PO QHS 02/21/20 02/21/20 Unknown History Losartan [Cozaar] 100 mg PO QAM 02/21/20 02/21/20 Unknown History Simvastatin 20 mg PO QDAY 02/21/20 02/21/20 Unknown History amLODIPine 2.5 mg PO DAILY 02/21/20 02/21/20 Unknown History metFORMIN [Glucophage] 500 mg PO BID 02/21/20 02/21/20 Unknown History Clopidogrel [Plavix] 75 mg PO QDAY #30 tablet 02/22/20 Unknown Rx ISOSORBIDE MONOnitrate [Imdur ER] 30 mg PO QDAY #30 tablet 08/02/20 Unknown Rx Metoprolol [Lopressor TAB] 25 mg PO BID #60 tablet 08/02/20 Unknown Rx Butalb/Acetamin/Caff 50-325-40 1 tab PO Q6HR PRN #24 tab 08/28/20 Unknown Rx [Fioricet] ED Physical Exam - General Limitations: No Limitations General appearance: alert, in no apparent distress - Head Head exam: Present: atraumatic, normocephalic - Eye Eye exam: Present: normal appearance, PERRL, EOMI - ENT ENT exam: Present: mucous membranes moist - Neck Neck exam: Present: normal inspection - Respiratory Respiratory exam: Present: normal lung sounds bilaterally. Absent: respiratory distress - Cardiovascular Cardiovascular Exam: Present: regular rate, normal rhythm. Absent: systolic murmur, diastolic murmur, rubs, gallop - GI/Abdominal GI/Abdominal exam: Present: soft, normal bowel sounds. Absent: distended, tenderness - Extremities Exam Extremities exam: Present: normal inspection - Back Exam Back exam: Present: normal inspection - Neurological Exam Neurological exam: Present: alert, oriented X3, CN II-XII intact. Absent: motor sensory deficit - Psychiatric Psychiatric exam: Present: normal affect, normal mood - Skin Skin exam: Present: warm, dry, intact, normal color. Absent: rash ED Course Vital Signs 08/28/20 08/28/20 08/28/20 16:29 17:38 18:09 Temperature 98.1 F Pulse Rate 85 64 Respiratory 16 18 Rate Blood Pressure 198/78 Blood Pressure 143/57 [Right] O2 Sat by Pulse 100 Oximetry 08/28/20 08/28/20 18:10 18:14 Temperature Pulse Rate 64 Respiratory 18 Rate Blood Pressure 143/57 Blood Pressure [Right] O2 Sat by Pulse Oximetry ED Medical Decision Making - Lab Data Result diagrams: 08/28/20 16:37 08/28/20 16:37 Lab Results 08/28/20 08/28/20 Range/Units 16:37 16:37 WBC 7.0 (4.5-11.0) K/mm3 RBC 4.95 (3.65-5.03) M/mm3 Hgb 11.1 (10.1-14.3) gm/dl Hct 34.2 (30.3-42.9) % MCV 69 L (79-97) fl MCH 23 L (28-32) pg MCHC 33 (30-34) % RDW 16.8 H (13.2-15.2) % Plt Count 277 (140-440) K/mm3 Lymph % (Auto) 14.5 (13.4-35.0) % [place] % (Auto) 10.3 H (0.0-7.3) % Eos % (Auto) 1.5 (0.0-4.3) % Baso % (Auto) 0.8 (0.0-1.8) % Lymph # (Auto) 1.0 L (1.2-5.4) K/mm3 [place] # (Auto) 0.7 (0.0-0.8) K/mm3 Eos # (Auto) 0.1 (0.0-0.4) K/mm3 Baso # (Auto) 0.1 (0.0-0.1) K/mm3 Seg Neutrophils % 72.9 H (40.0-70.0) % Seg Neutrophils # 5.1 (1.8-7.7) K/mm3 Sodium 128 L (137-145) mmol/L Potassium 3.8 (3.6-5.0) mmol/L Chloride 92.2 L (98-107) mmol/L Carbon Dioxide 25 (22-30) mmol/L Anion Gap 15 mmol/L BUN 9 (7-17) mg/dL Creatinine 0.6 (0.6-1.2) mg/dL Estimated GFR > 60 ml/min BUN/Creatinine Ratio 15 % Glucose 108 H (65-100) mg/dL Calcium 9.3 (8.4-10.2) mg/dL Total Bilirubin 0.40 (0.1-1.2) mg/dL AST 22 (5-40) units/L ALT 13 (7-56) units/L Alkaline Phosphatase 76 (35-129) units/L Troponin T < 0.010 (0.00-0.029) ng/mL Total Protein 7.7 (6.3-8.2) g/dL Albumin 4.7 (3.9-5) g/dL Albumin/Globulin Ratio 1.6 % - Radiology Data Radiology results: report reviewed - Medical Decision Making Patient given Fioricet, IV Reglan, IV Benadryl for her headache CT of the head was done for evaluation of headache in the setting of elevated BP Patient states headache is completely resolved on reexamination at 7:00 PM Results discussed with patient. Critical care attestation.: If time is entered above; I have spent that time in minutes in the direct care of this critically ill patient, excluding procedure time. ED Disposition Clinical Impression: Headache, Hypertension Disposition: TO HOME OR SELFCARE Is pt being admited?: No Does the pt Need Aspirin: No Condition: Stable Instructions: General Headache Without Cause, Hypertension, Adult, Hypertension (ED) Prescriptions: Butalb/Acetamin/Caff 50-325-40 [Fioricet] 1 tab PO Q6HR PRN #24 tab PRN Reason: Headache Referrals: MARIELOS SOLORZANO MD [Primary Care Provider] - 3-5 Days KAREN SANTIAGO MD [Staff Physician] - 3-5 Days Time of Disposition: 19:13
--- NOTE | 2020-08-28 18:51 | Cat Scan Report ---
CT HEAD WITHOUT CONTRAST HISTORY: HEAdache COMPARISON: None TECHNIQUE: CT imaging of the head was performed in the axial, sagittal, and coronal projections and bone algori thm in axial projection in the soft tissue algorithm. All CT scans at this location are performed using CT dose reduction for ALARA by means of automated e xposure control. CONTRAST: None. FINDINGS: Cerebral and Cerebellar Hemispheres: No evidence of mass or mass effect. No midline shift. No acute hemorrhage. No acute cortical infarction. No extra-axial fluid collection. Ventricles: Normal in size and configuration for age. Osseous Structures: No significant abnormality. Visualized Paranasal Sinuses: No significant abnormality. Additional Findings: None IMPRESSION: 1. No acute intracranial abnormality. NOTE: Acute infarct may not be visible by noncontrast CT. Signer Name: Shaggy Mclean MD Signed: 08/28/2020 6:47 PM Workstation Name: [id number]
== END 2020-08-28 19:35 | disposition home or self-care (01) ==
LOC: ED 16:22
DX: R51.9 Headache, unspecified (principal); I10 Essential (primary) hypertension; E11.9 Type 2 diabetes mellitus without complications; K21.9 Gastro-esophageal reflux disease without esophagitis; M19.91 Primary osteoarthritis, unspecified site; Z98.890 Other specified postprocedural states; Z87.891 Personal history of nicotine dependence; Z79.899 Other long term (current) drug therapy
CPT/HCPCS: 36415; 70450; 71046; 80053; 84484; 85025; 93005; 96361; 96374; 96375; 99284; J1200; J2405; J2765; J7030

== ENCOUNTER 2020-10-24 13:02 | Emergency (ER) | payer MEDICARE ==
--- NOTE | 2020-10-24 13:33 | Event Note ---
ED Screening Note Date of service: 10/24/20 Time: 13:33 ED Screening Note: 65-year-old female patient with history of triple bypass and hypertension presents emergency department complaints of chest pressure and associated dyspnea/palpitations starting last night and worsening this morning. Symptoms relieved with rest. She has been prescribed nitroglycerin but did not take it prior to arrival. No syncope. No diaphoresis. Patient already took aspirin and Brilinta at home prior to arrival. General: Awake, appropriately interactive, no acute distress. Neck: Supple. Full range of motion intact. Cardiovascular: Regular rate and rhythm. Normal peripheral perfusion. Pulmonary: No respiratory distress. Patient is speaking normally without use of accessory muscles. Skin: No apparent rashes or lesions. Neurological: No facial asymmetry. Speech is clear. Follows commands. Patient is alert and oriented. Musculoskeletal: Moves all four extremities spontaneously with normal range of motion. Psych: Cooperative. Appropriate mood and affect. EKG reviewed in triage and compared with prior EKG tracing earlier this year; no acute changes. I have greeted and performed a focused rapid initial assessment of this patient. A comprehensive ED assessment and evaluation of the patient, analysis of all test results, and completion of the medical decision-making process will be conducted by additional ED providers. This initial assessment/diagnostic orders/clinical plan/treatment(s) is/are subject to change based on patients health status, clinical progression and re-assessment. Further treatment and workup at subsequent clinical provider's discretion. Patient/guardian urged not to elope from the ED as their condition may be serious if not clinically assessed and managed.
--- NOTE | 2020-10-24 14:09 | XRay Report ---
CHEST 2 VIEWS INDICATION / CLINICAL INFORMATION: chest pain. COMPARISON: 08/28/2020 FINDINGS: SUPPORT DEVICES: None. HEART / MEDIASTINUM: No significant abnormality. LUNGS / PLEURA: No significant pulmonary or pleural abnormality. No pneumothorax. ADDITIONAL FINDINGS: No significant additional findings. IMPRESSION: 1. No acute findings or significant interval change when compared to 08/28/2020. Signer Name: Nabil Duran MD Signed: 10/24/2020 2:04 PM Workstation Name: [id number]
[2020-10-24 14:26] LABS: Basophils # (Auto) 0.1 K/mm3 (0.0-0.1); Basophils % (Auto) 0.9 % (0.0-1.8); Eosinophils # (Auto) 0.1 K/mm3 (0.0-0.4); Eosinophils % (Auto) 2.2 % (0.0-4.3); Hematocrit 34.9 % (30.3-42.9); Hemoglobin 11.7 gm/dl (10.1-14.3); Lymphocytes # (Auto) 0.9 K/mm3 (1.2-5.4); Lymphocytes % (Auto) 13.7 % (13.4-35.0); Mean Corpuscular HGB Conc 34 % (30-34); Monocytes # (Auto) 0.4 K/mm3 (0.0-0.8); Monocytes % (Auto) 6.9 % (0.0-7.3); Platelet Count 331 K/mm3 (140-440); Red Blood Count 5.07 M/mm3 (3.65-5.03); Red Cell Distribution Width 16.4 % (13.2-15.2)
[2020-10-24 14:30] LABS: Mean Corpuscular Volume 69 fl (79-97)
[2020-10-24 14:38] LABS: INR 0.92 (0.87-1.13)
[2020-10-24 14:39] LABS: Partial Thromboplastin Time 30.6 Sec. (24.2-36.6)
[2020-10-24 14:50] LABS: Alanine Aminotransferase 12 units/L (7-56); Albumin 4.2 g/dL (3.9-5); Blood Urea Nitrogen 12 mg/dL (7-17); Calcium 9.8 mg/dL (8.4-10.2); Hemolysis Index 0
[2020-10-24 14:56] LABS: BUN/Creatinine Ratio 17
[2020-10-24] MEDS ORDERED: cloNIDine 0.2 MG TAB PO ONE (20:05)
--- NOTE | 2020-10-24 21:00 | Emergency Department Report ---
ED Chest Pain HPI - General Chief Complaint: Chest Pain Stated Complaint: BLOOD PRESSURE/CHEST TIGHTNESS/HEADACHE Time Seen by Provider: 10/24/20 19:56 Source: patient Mode of arrival: Ambulatory Limitations: No Limitations - History of Present Illness Initial Comments: Patient is a 65-year-old F [place] female with a past medical history of hypertension coronary disease with triple bypass who is presenting with some chest discomfort. Patient states that approximately month ago she felt some nausea dizziness and some slight chest pressure after taking her Covid shot. States symptoms have been similar the last 2 to 3 days. She also notes that her Norvasc dose of 2.5 was supposed to be increased but was not on her last visit with her jewel inserter a week ago. Patient has a history of coronary catheterization in July which showed patent grafts. They decided they wanted to treat the patient medically at that time.. Patient states she has some mild nausea. Chest pressure is intermittent and is not exertional. States she is taking her blood pressure medications but missed her last dose since she has been here in the emergency department. She denies cough cold congestion fevers or chills. Severity scale (0 -10): 5 - Related Data Home Medications Medication Instructions Recorded Confirmed Last Taken Aspirin [Aspirin BABY CHEW TAB] 81 mg PO DAILY 04/03/15 02/21/20 02/11/19 hydroCHLOROthiazide 12.5 mg PO DAILY 07/09/19 02/21/20 Unknown [Hydrochlorothiazide] Ascorbic Acid [Vitamin C] 500 mg PO QDAY 02/21/20 02/21/20 Unknown Famotidine [Pepcid] 20 mg PO QDAY 02/21/20 02/21/20 Unknown Losartan [Cozaar] 50 mg PO QHS 02/21/20 02/21/20 Unknown Losartan [Cozaar] 100 mg PO QAM 02/21/20 02/21/20 Unknown Simvastatin 20 mg PO QDAY 02/21/20 02/21/20 Unknown amLODIPine 2.5 mg PO DAILY 02/21/20 02/21/20 Unknown metFORMIN [Glucophage] 500 mg PO BID 02/21/20 02/21/20 Unknown Previous Rx's Medication Instructions Recorded Last Taken Type Clopidogrel [Plavix] 75 mg PO QDAY #30 tablet 02/22/20 Unknown Rx ISOSORBIDE MONOnitrate [Imdur ER] 30 mg PO QDAY #30 tablet 08/02/20 Unknown Rx Metoprolol [Lopressor TAB] 25 mg PO BID #60 tablet 08/02/20 Unknown Rx Butalb/Acetamin/Caff 50-325-40 1 tab PO Q6HR PRN #24 tab 08/28/20 Unknown Rx [Fioricet] Amlodipine Besylate [Norvasc] 5 mg PO DAILY #30 tablet 10/24/20 Unknown Rx Allergies Allergy/AdvReac Type Severity Reaction Status Date / Time No Known Allergies Allergy Verified 08/28/20 16:26 Heart Score - HEART Score History: Slightly suspicious EKG: Non-specific Age: > 65 Risk factors: > 3 risk factors or hx of atherosclerotic disease Troponin: < normal limit HEART Score: 5 - EKG Read Time Time EKG Completed: 13:13 EKG Read Time: 13:17 ED Review of Systems ROS: Stated complaint: BLOOD PRESSURE/CHEST TIGHTNESS/HEADACHE Other details as noted in HPI Comment: All other systems reviewed and negative ED Past Medical Hx - Past Medical History Hx Hypertension: Yes Hx CVA: No Hx Heart Attack/AMI: (denies heart attack,stated BLOCKAGE) Hx Congestive Heart Failure: No Hx Diabetes: Yes Hx Deep Vein Thrombosis: No Hx Pulmonary Embolism: No Hx GERD: Yes Hx Liver Disease: No Hx Renal Disease: No Hx Sickle Cell Disease: No Hx Arthritis: Yes (shoulders) Hx Headaches / Migraines: No Hx Seizures: No Hx Kidney Stones: No Hx Psychiatric Treatment: No Hx Asthma: No Hx COPD: No Hx Tuberculosis: No Hx Dementia: No Hx HIV: No Additional medical history: CAD, Bronchitis, herpes, colon CA - Surgical History Hx Coronary Stent: No Hx Open Heart Surgery: Yes (2012) Hx Pacemaker: No Hx Internal Defibrillator: No Hx Cholecystectomy: No Hx Appendectomy: No Hx Breast Surgery: No Additional Surgical History: Exploratory laparotomy with left hemicolectomy 02/13/2015. RIGHT AND LEFT Carotid endarterectomy,PORT to right upper chest- removed 2015; triple cardiac bypass surgery - Social History Smoking Status: Former Smoker Substance Use Type: None - Medications Home Medications: Home Medications Medication Instructions Recorded Confirmed Last Taken Type Aspirin [Aspirin BABY CHEW TAB] 81 mg PO DAILY 04/03/15 02/21/20 02/11/19 History hydroCHLOROthiazide 12.5 mg PO DAILY 07/09/19 02/21/20 Unknown History [Hydrochlorothiazide] Ascorbic Acid [Vitamin C] 500 mg PO QDAY 02/21/20 02/21/20 Unknown History Famotidine [Pepcid] 20 mg PO QDAY 02/21/20 02/21/20 Unknown History Losartan [Cozaar] 50 mg PO QHS 02/21/20 02/21/20 Unknown History Losartan [Cozaar] 100 mg PO QAM 02/21/20 02/21/20 Unknown History Simvastatin 20 mg PO QDAY 02/21/20 02/21/20 Unknown History amLODIPine 2.5 mg PO DAILY 02/21/20 02/21/20 Unknown History metFORMIN [Glucophage] 500 mg PO BID 02/21/20 02/21/20 Unknown History Clopidogrel [Plavix] 75 mg PO QDAY #30 tablet 02/22/20 Unknown Rx ISOSORBIDE MONOnitrate [Imdur ER] 30 mg PO QDAY #30 tablet 08/02/20 Unknown Rx Metoprolol [Lopressor TAB] 25 mg PO BID #60 tablet 08/02/20 Unknown Rx Butalb/Acetamin/Caff 50-325-40 1 tab PO Q6HR PRN #24 tab 08/28/20 Unknown Rx [Fioricet] Amlodipine Besylate [Norvasc] 5 mg PO DAILY #30 tablet 10/24/20 Unknown Rx ED Physical Exam - General Limitations: No Limitations General appearance: alert, in no apparent distress - Head Head exam: Present: atraumatic, normocephalic - Eye Eye exam: Present: normal appearance, PERRL, EOMI - ENT ENT exam: Present: mucous membranes moist - Neck Neck exam: Present: normal inspection - Respiratory Respiratory exam: Present: normal lung sounds bilaterally. Absent: respiratory distress, wheezes, rales, rhonchi - Cardiovascular Cardiovascular Exam: Present: regular rate, normal rhythm, normal heart sounds. Absent: systolic murmur, diastolic murmur, rubs, gallop - GI/Abdominal GI/Abdominal exam: Present: soft, normal bowel sounds. Absent: distended, tenderness, guarding, rebound - Extremities Exam Extremities exam: Present: normal inspection - Back Exam Back exam: Present: normal inspection - Neurological Exam Neurological exam: Present: alert, oriented X3 - Psychiatric Psychiatric exam: Present: normal affect, normal mood - Skin Skin exam: Present: warm, dry, intact, normal color. Absent: rash ED Course Vital Signs 10/24/20 10/24/20 10/24/20 13:07 20:00 20:13 Temperature 98.1 F Pulse Rate 95 H 68 Respiratory 16 19 16 Rate Blood Pressure 184/88 239/105 O2 Sat by Pulse 100 99 Oximetry DALLAS score - Dallas Score Age > 65: (0) No Aspirin use within the Past 7 Days: (1) Yes 3 or more CAD Risk Factors: (1) Yes 2 or more Angina events in past 24 hrs: (0) No Known CAD with more than 50% Stenosis: (1) Yes Elevated Cardiac Markers: (1) Yes ST Deviation Greater than 0.5mm: (0) No DALLAS Score: 4 ED Medical Decision Making - Lab Data Result diagrams: 10/24/20 13:56 10/24/20 13:56 Lab Results 10/24/20 10/24/20 10/24/20 Range/Units 13:56 13:56 13:56 WBC 6.5 (4.5-11.0) K/mm3 RBC 5.07 H (3.65-5.03) M/mm3 Hgb 11.7 (10.1-14.3) gm/dl Hct 34.9 (30.3-42.9) % MCV 69 L (79-97) fl MCH 23 L (28-32) pg MCHC 34 (30-34) % RDW 16.4 H (13.2-15.2) % Plt Count 331 (140-440) K/mm3 Lymph % (Auto) 13.7 (13.4-35.0) % [place] % (Auto) 6.9 (0.0-7.3) % Eos % (Auto) 2.2 (0.0-4.3) % Baso % (Auto) 0.9 (0.0-1.8) % Lymph # (Auto) 0.9 L (1.2-5.4) K/mm3 [place] # (Auto) 0.4 (0.0-0.8) K/mm3 Eos # (Auto) 0.1 (0.0-0.4) K/mm3 Baso # (Auto) 0.1 (0.0-0.1) K/mm3 Seg Neutrophils % 76.3 H (40.0-70.0) % Seg Neutrophils # 4.9 (1.8-7.7) K/mm3 PT 12.3 (12.2-14.9) Sec. INR 0.92 (0.87-1.13) APTT 30.6 (24.2-36.6) Sec. Sodium 136 L (137-145) mmol/L Potassium 3.9 (3.6-5.0) mmol/L Chloride 98.5 (98-107) mmol/L Carbon Dioxide 27 (22-30) mmol/L Anion Gap 14 mmol/L BUN 12 (7-17) mg/dL Creatinine 0.7 (0.6-1.2) mg/dL Estimated GFR > 60 ml/min BUN/Creatinine Ratio 17 % Glucose 101 H (65-100) mg/dL Calcium 9.8 (8.4-10.2) mg/dL Magnesium 2.10 (1.7-2.3) mg/dL Total Bilirubin 0.40 (0.1-1.2) mg/dL AST 20 (5-40) units/L ALT 12 (7-56) units/L Alkaline Phosphatase 83 (35-129) units/L Troponin T < 0.010 (0.00-0.029) ng/mL Total Protein 7.9 (6.3-8.2) g/dL Albumin 4.2 (3.9-5) g/dL Albumin/Globulin Ratio 1.1 % /04/07 Range/Units 17:13 WBC (4.5-11.0) K/mm3 RBC (3.65-5.03) M/mm3 Hgb (10.1-14.3) gm/dl Hct (30.3-42.9) % MCV (79-97) fl MCH (28-32) pg MCHC (30-34) % RDW (13.2-15.2) % Plt Count (140-440) K/mm3 Lymph % (Auto) (13.4-35.0) % [place] % (Auto) (0.0-7.3) % Eos % (Auto) (0.0-4.3) % Baso % (Auto) (0.0-1.8) % Lymph # (Auto) (1.2-5.4) K/mm3 [place] # (Auto) (0.0-0.8) K/mm3 Eos # (Auto) (0.0-0.4) K/mm3 Baso # (Auto) (0.0-0.1) K/mm3 Seg Neutrophils % (40.0-70.0) % Seg Neutrophils # (1.8-7.7) K/mm3 PT (12.2-14.9) Sec. INR (0.87-1.13) APTT (24.2-36.6) Sec. Sodium (137-145) mmol/L Potassium (3.6-5.0) mmol/L Chloride (98-107) mmol/L Carbon Dioxide (22-30) mmol/L Anion Gap mmol/L BUN (7-17) mg/dL Creatinine (0.6-1.2) mg/dL Estimated GFR ml/min BUN/Creatinine Ratio % Glucose (65-100) mg/dL Calcium (8.4-10.2) mg/dL Magnesium (1.7-2.3) mg/dL Total Bilirubin (0.1-1.2) mg/dL AST (5-40) units/L ALT (7-56) units/L Alkaline Phosphatase (35-129) units/L Troponin T < 0.010 (0.00-0.029) ng/mL Total Protein (6.3-8.2) g/dL Albumin (3.9-5) g/dL Albumin/Globulin Ratio % - EKG Data -: EKG Interpreted by Il - EKG Data 10/24/20 21:04 EKG shows sinus rhythm rate of 80. Ono normal intervals are normal. Some T wave flattening in the lateral leads but no acute process. Time of interpretation 117 - Radiology Data [facility] [address] [place] [address] XRay Report Signed Patient: DAISY ALONSO MR#: [id number] : 1955 Acct:[id number] Age/Sex: 65 / F A DM Date: 10/24/20 Loc: ED Attending Dr: Ordering Physician: LIVIA HURD Date of Service: 10/24/20 Procedure(s): XR chest routine 2V Accession Number(s): [id number] cc: CATALINO BATOOL JUNIOR, PA Fluoro Time In Minutes: CHEST 2 VIEWS INDICATION / CLINICAL INFORMATION: chest pain. COMPARISON: 08/28/2020 FINDINGS: SUPPORT DEVICES: None. HEART / MEDIASTINUM: No significant abnormality. LUNGS / PLEURA: No significant pulmonary or pleural abnormality. No pneumothorax. ADDITIONAL FINDINGS: No significant additional findings. IMPRESSION: 1. No acute findings or significant interval change when compared to 08/28/2020. Signer Name: Nabil Duran MD Signed: 10/24/2020 2:04 PM Workstation Name: [id number] - Medical Decision Making Patient with 2 - troponins. Blood pressure significantly elevated but improved to 140 systolic after 0.2 of Catapres. Likely the patient is symptomatic secondary to her blood pressure. Patient is chest pain-free at this time. Patient was will be discharged home. She likely will need to see cardiology sometime in the next several days however because no interventions will be done over the weekend elected to send the patient home. Also faxed a referral sheet to her jewel inserter Critical care attestation.: If time is entered above; I have spent that time in minutes in the direct care of this critically ill patient, excluding procedure time. ED Disposition Clinical Impression: Hypertensive urgency, Atypical chest pain Disposition: DC-01 TO HOME OR SELFCARE Is pt being admited?: No Does the pt Need Aspirin: No Condition: Stable Instructions: Nonspecific Chest Pain, Adult Prescriptions: Amlodipine Besylate [Norvasc] 5 mg PO DAILY #30 tablet Referrals: MARIELOS SOLORZANO MD [Primary Care Provider] - 3-5 Days Time of Disposition: 21:15
[2020-10-24 21:46] VITALS: BP 162/65
== END 2020-10-24 21:30 | disposition home or self-care (01) ==
LOC: ED 13:02
DX: I16.0 Hypertensive urgency (principal); R07.89 Other chest pain; E11.9 Type 2 diabetes mellitus without complications; K21.9 Gastro-esophageal reflux disease without esophagitis; M19.91 Primary osteoarthritis, unspecified site; Z98.890 Other specified postprocedural states; Z87.891 Personal history of nicotine dependence; Z79.84 Long term (current) use of oral hypoglycemic drugs; Z79.899 Other long term (current) drug therapy
CPT/HCPCS: 36415; 71046; 80053; 83735; 84484; 85025; 85610; 85730; 93005

== ENCOUNTER 2020-11-10 14:05 | Emergency (ER) | payer MEDICARE ==
[2020-11-10 15:40] VITALS: BP 166/70
--- NOTE | 2020-11-10 17:19 | Emergency Department Report ---
ED General Adult HPI - General Chief complaint: Abdominal Pain Stated complaint: LOWER BACK PAINS Time Seen by Provider: 11/10/20 17:16 Source: patient Mode of arrival: Ambulatory Limitations: No Limitations - History of Present Illness Initial comments: 65-year-old female patient with history of colon cancer (in remission) presents to the emergency department complaints of nontraumatic left lower back pain radiating to her left groin starting 5 days ago. Patient states she was evaluated by her primary care provider last week, who diagnosed her with a muscle strain and prescribed a muscle relaxer. States her pain has not improved. No prior history of recurrent UTIs. No history of kidney disease. Denies fever, chills, nausea, vomiting, diarrhea, constipation, hematuria, rash, swelling, chest pain, shortness of breath. Denies all other complaints at this time. - Related Data Home Medications Medication Instructions Recorded Confirmed Last Taken Aspirin [Aspirin BABY CHEW TAB] 81 mg PO DAILY 04/03/15 02/21/20 02/11/19 hydroCHLOROthiazide 12.5 mg PO DAILY 07/09/19 02/21/20 Unknown [Hydrochlorothiazide] Ascorbic Acid [Vitamin C] 500 mg PO QDAY 02/21/20 02/21/20 Unknown Famotidine [Pepcid] 20 mg PO QDAY 02/21/20 02/21/20 Unknown Losartan [Cozaar] 50 mg PO QHS 02/21/20 02/21/20 Unknown Losartan [Cozaar] 100 mg PO QAM 02/21/20 02/21/20 Unknown Simvastatin 20 mg PO QDAY 02/21/20 02/21/20 Unknown amLODIPine 2.5 mg PO DAILY 02/21/20 02/21/20 Unknown metFORMIN [Glucophage] 500 mg PO BID 02/21/20 02/21/20 Unknown Previous Rx's Medication Instructions Recorded Last Taken Type Clopidogrel [Plavix] 75 mg PO QDAY #30 tablet 02/22/20 Unknown Rx ISOSORBIDE MONOnitrate [Imdur ER] 30 mg PO QDAY #30 tablet 08/02/20 Unknown Rx Metoprolol [Lopressor TAB] 25 mg PO BID #60 tablet 08/02/20 Unknown Rx Butalb/Acetamin/Caff 50-325-40 1 tab PO Q6HR PRN #24 tab 08/28/20 Unknown Rx [Fioricet] Amlodipine Besylate [Norvasc] 5 mg PO DAILY #30 tablet 10/24/20 Unknown Rx cephALEXin [Keflex] 500 mg PO Q12HR 7 Days cap 11/10/20 Unknown Rx Allergies Allergy/AdvReac Type Severity Reaction Status Date / Time No Known Allergies Allergy Verified 08/28/20 16:26 ED Review of Systems ROS: Stated complaint: LOWER BACK PAINS Other details as noted in HPI Other: GENERAL: Negative for fever, chills, weight change, anorexia, fatigue. ENT: Negative for ear pain, difficulty hearing, sore throat, nasal congestion, epistaxis. CARDIOVASCULAR: Negative for chest pain, palpitations, lower extremity swelling. PULMONARY: Negative for cough, dyspnea, wheezing, orthopnea, cyanosis. GASTROINTESTINAL: Negative for abdominal pain, nausea, vomiting, diarrhea, constipation. GENITOURINARY: Positive for left groin pain. MUSCULOSKELETAL: Positive for back pain. NEUROLOGICAL: Negative for headache, seizure, syncope, paresthesias, weakness. INTEGUMENTARY: Negative for erythema, rash, diaphoresis, laceration, ecchymosis. HEMATOLOGICAL: Negative for hemoptysis, hematemesis, hematochezia, hematuria. PSYCHIATRIC: Negative for hallucinations, suicidal ideation, homicidal ideation, anxiety, depression. ED Past Medical Hx - Past Medical History Previous Medical History?: Yes Hx Hypertension: Yes Hx CVA: No Hx Heart Attack/AMI: (denies heart attack,stated BLOCKAGE) Hx Congestive Heart Failure: No Hx Diabetes: Yes Hx Deep Vein Thrombosis: No Hx Pulmonary Embolism: No Hx GERD: Yes Hx Liver Disease: No Hx Renal Disease: No Hx Sickle Cell Disease: No Hx Arthritis: Yes (shoulders) Hx Headaches / Migraines: No Hx Seizures: No Hx Kidney Stones: No Hx Psychiatric Treatment: No Hx Asthma: No Hx COPD: No Hx Tuberculosis: No Hx Dementia: No Hx HIV: No Additional medical history: CAD, Bronchitis, herpes, colon CA - Surgical History Hx Coronary Stent: No Hx Open Heart Surgery: Yes (2012) Hx Pacemaker: No Hx Internal Defibrillator: No Hx Cholecystectomy: No Hx Appendectomy: No Hx Breast Surgery: No Additional Surgical History: Exploratory laparotomy with left hemicolectomy 02/13/2015. RIGHT AND LEFT Carotid endarterectomy,PORT to right upper chest- removed 2015; triple cardiac bypass surgery - Social History Smoking Status: Former Smoker Substance Use Type: None - Medications Home Medications: Home Medications Medication Instructions Recorded Confirmed Last Taken Type Aspirin [Aspirin BABY CHEW TAB] 81 mg PO DAILY 04/03/15 02/21/20 02/11/19 History hydroCHLOROthiazide 12.5 mg PO DAILY 07/09/19 02/21/20 Unknown History [Hydrochlorothiazide] Ascorbic Acid [Vitamin C] 500 mg PO QDAY 02/21/20 02/21/20 Unknown History Famotidine [Pepcid] 20 mg PO QDAY 02/21/20 02/21/20 Unknown History Losartan [Cozaar] 50 mg PO QHS 02/21/20 02/21/20 Unknown History Losartan [Cozaar] 100 mg PO QAM 02/21/20 02/21/20 Unknown History Simvastatin 20 mg PO QDAY 02/21/20 02/21/20 Unknown History amLODIPine 2.5 mg PO DAILY 02/21/20 02/21/20 Unknown History metFORMIN [Glucophage] 500 mg PO BID 02/21/20 02/21/20 Unknown History Clopidogrel [Plavix] 75 mg PO QDAY #30 tablet 02/22/20 Unknown Rx ISOSORBIDE MONOnitrate [Imdur ER] 30 mg PO QDAY #30 tablet 08/02/20 Unknown Rx Metoprolol [Lopressor TAB] 25 mg PO BID #60 tablet 08/02/20 Unknown Rx Butalb/Acetamin/Caff 50-325-40 1 tab PO Q6HR PRN #24 tab 08/28/20 Unknown Rx [Fioricet] Amlodipine Besylate [Norvasc] 5 mg PO DAILY #30 tablet 10/24/20 Unknown Rx cephALEXin [Keflex] 500 mg PO Q12HR 7 Days cap 11/10/20 Unknown Rx ED Physical Exam - General Limitations: No Limitations - Other Other exam information: General: Awake and alert. No acute distress. Head: Atraumatic, normocephalic. Eyes: EOMI. Pupils are equal and round. Normal sclera and conjunctiva. ENT: Oral mucosa is moist. Normal pharyngeal exam. Neck: Supple. No lymphadenopathy. Pulmonary: No respiratory distress. Clear to auscultation bilaterally. Cardiac: Regular rate and rhythm. Pulses are palpable and equal bilaterally. No lower extremity cyanosis or edema. Skin: Warm and dry. No rashes. Abdomen: Soft, non-tender, non-protuberant. Mild left lower abdominal tenderness without guarding, rigidity, or rebound. Bowel sounds are normal. No organomegaly or masses noted. Back: Normal alignment. No CVA tenderness. Patient reports left lower back pain without reproducible tenderness. Extremities: Symmetrical. Full range of motion intact. Neurological: Alert and oriented, appropriately interactive, no focal deficits. Psych: Cooperative. Appropriate mood and affect. Speech is evenly metered. Thoughts are logically construed. ED Course Vital Signs 11/10/20 15:38 Temperature 98.2 F Pulse Rate 86 Respiratory 18 Rate Blood Pressure 166/70 [Right] O2 Sat by Pulse 100 Oximetry ED Medical Decision Making - Lab Data Result diagrams: 11/10/20 17:29 11/10/20 17:29 - Medical Decision Making Differential diagnosis including but not limited to: urinary tract infection, pyelonephritis, nephrolithiasis, sprain/strain, diverticulitis, bowel obstruction, bowel perforation, mesenteric ischemia, aortic aneurysm/dissection On reevaluation, patient remains stable. Repeat abdominal exam is benign. She is ambulatory and tolerating fluids by mouth without difficulty. Labs are unremarkable. Urinalysis shows evidence of uncomplicated UTI. Cultures sent. No fever, no vomiting, no CVA tenderness. Patient is an appropriate candidate for outpatient management. She will be started on Keflex and encouraged to follow-up with her primary care provider this week for reevaluation. Patient expressed understanding and is agreeable to plan of care. Strict return precautions provided. Repeat exam is unremarkable and benign. History, exam, diagnostic testing, and current condition do not suggest worrisome pathology to warrant further testing, continued ED treatment, admission, or surgical evaluation at this point. Given the low probability of a significant medical illness, it would be more likely to result in harm than benefit to perform further testing at this stage. Discussed findings, presumptive diagnosis, need for follow-up and specific signs/symptoms that should prompt immediate return to the emergency department. Instructions were explained in detail to the patient in addition to giving written discharge information. Patient expressed understanding and was given the opportunity to ask questions, all of which were satisfactorily answered prior to discharge home. Critical care attestation.: If time is entered above; I have spent that time in minutes in the direct care of this critically ill patient, excluding procedure time. ED Disposition Clinical Impression: Urinary tract infection Qualifiers: Urinary tract infection type: acute cystitis Hematuria presence: without hematuria Qualified Code(s): N30.00 - Acute cystitis without hematuria Disposition: TO HOME OR SELFCARE Is pt being admited?: No Does the pt Need Aspirin: No Condition: Stable Instructions: Urinary Tract Infection, Adult, [id number], Abdominal Pain (ED) Additional Instructions: Take Keflex with food as directed. Take Tylenol every 4 hours and Motrin every 8 hours as needed for pain. Rest. Drink plenty of fluids. Follow-up with your primary care provider this week. Call tomorrow to schedule an appointment. Return to the emergency department immediately for new or worsening symptoms. Specifically, return to the emergency department immediately for fever, worsening pain, inability to urinate, vomiting, rash, or any other concerns. Prescriptions: cephALEXin [Keflex] 500 mg PO Q12HR 7 Days cap Referrals: MARIELOS SOLORZANO MD [Primary Care Provider] - 3-5 Days Time of Disposition: 20:34
[2020-11-10 17:45] LABS: Basophils # (Auto) 0.1 K/mm3 (0.0-0.1); Eosinophils # (Auto) 0.2 K/mm3 (0.0-0.4); Hematocrit 37.2 % (30.3-42.9); Lymphocytes # (Auto) 1.3 K/mm3 (1.2-5.4); Lymphocytes % (Auto) 16.8 % (13.4-35.0); Mean Corpuscular HGB Conc 32 % (30-34); Mean Corpuscular Volume 70 fl (79-97); Monocytes # (Auto) 0.5 K/mm3 (0.0-0.8); Platelet Count 313 K/mm3 (140-440); Red Blood Count 5.29 M/mm3 (3.65-5.03); Red Cell Distribution Width 16.8 % (13.2-15.2)
[2020-11-10 18:09] LABS: Alanine Aminotransferase 12 units/L (7-56); BUN/Creatinine Ratio 21; Blood Urea Nitrogen 19 mg/dL (7-17); Calcium 9.4 mg/dL (8.4-10.2); Hemolysis Index 11
[2020-11-10 19:57] LABS: Bacteria,Urine 2+ /HPF (Negative); Bilirubin,Urine NEG (Negative); Blood,Urine NEG (Negative); Color,Urine Yellow (Yellow); Mucus,Urine FEW /HPF; Protein,Urine <15 mg/dL mg/dL (Negative); Urobilinogen,Urine < 2.0 mg/dL (<2.0)
== END 2020-11-10 20:40 | disposition home or self-care (01) ==
LOC: ED 14:05
DX: N39.0 Urinary tract infection, site not specified (principal); I10 Essential (primary) hypertension; E11.9 Type 2 diabetes mellitus without complications; K21.9 Gastro-esophageal reflux disease without esophagitis; M19.91 Primary osteoarthritis, unspecified site; Z98.890 Other specified postprocedural states; Z87.891 Personal history of nicotine dependence; Z79.899 Other long term (current) drug therapy
CPT/HCPCS: 36415; 80053; 81001; 83735; 85025; 87086

== ENCOUNTER 2020-12-02 09:52 | Emergency (ER) | payer MEDICARE ==
[2020-12-02 11:21] LABS: Bilirubin,Urine NEG (Negative); Blood,Urine NEG (Negative); Color,Urine Straw (Yellow); Protein,Urine <15 mg/dL mg/dL (Negative); Urobilinogen,Urine < 2.0 mg/dL (<2.0)
--- NOTE | 2020-12-02 13:31 | Emergency Department Report ---
ED General Adult HPI - General Chief complaint: Abdominal Pain Stated complaint: ABD PAIN, BACK PAIN Time Seen by Provider: 12/02/20 13:20 Source: patient Mode of arrival: Ambulatory Limitations: No Limitations - History of Present Illness Initial comments: 65-year-old female patient with history of coronary artery disease status post bypass surgery and remote history of colon cancer (in remission) presents emergency department with complaints of left lower quadrant and left thigh pain starting 3 days ago. No preceding fall, trauma, or injury. Patient was evaluated in the emergency department a few weeks ago for left lower quadrant pain. She was diagnosed with urinary tract infection and discharged home to follow-up with primary care provider. Patient did follow-up with her primary care provider, who agreed with the ED assessment, and recommended she complete her antibiotics as directed. Her symptoms did resolve for a few days but have s nova returned. Denies fever, chills, nausea, vomiting, diarrhea, constipation, rectal bleeding, hematuria, dysuria, paresthesias, numbness, weakness. Denies all other complaints at this time. - Related Data Home Medications Medication Instructions Recorded Confirmed Last Taken Aspirin [Aspirin BABY CHEW TAB] 81 mg PO DAILY 04/03/15 02/21/20 02/11/19 hydroCHLOROthiazide 12.5 mg PO DAILY 07/09/19 02/21/20 Unknown [Hydrochlorothiazide] Ascorbic Acid [Vitamin C] 500 mg PO QDAY 02/21/20 02/21/20 Unknown Famotidine [Pepcid] 20 mg PO QDAY 02/21/20 02/21/20 Unknown Losartan [Cozaar] 50 mg PO QHS 02/21/20 02/21/20 Unknown Losartan [Cozaar] 100 mg PO QAM 02/21/20 02/21/20 Unknown Simvastatin 20 mg PO QDAY 02/21/20 02/21/20 Unknown amLODIPine 2.5 mg PO DAILY 02/21/20 02/21/20 Unknown metFORMIN [Glucophage] 500 mg PO BID 02/21/20 02/21/20 Unknown Previous Rx's Medication Instructions Recorded Last Taken Type Clopidogrel [Plavix] 75 mg PO QDAY #30 tablet 02/22/20 Unknown Rx ISOSORBIDE MONOnitrate [Imdur ER] 30 mg PO QDAY #30 tablet 08/02/20 Unknown Rx Metoprolol [Lopressor TAB] 25 mg PO BID #60 tablet 08/02/20 Unknown Rx Butalb/Acetamin/Caff 50-325-40 1 tab PO Q6HR PRN #24 tab 08/28/20 Unknown Rx [Fioricet] Amlodipine Besylate [Norvasc] 5 mg PO DAILY #30 tablet 10/24/20 Unknown Rx cephALEXin [Keflex] 500 mg PO Q12HR 7 Days cap 11/10/20 Unknown Rx Lidocaine [Lidoderm] 1 each TP BID #20 adh..patch 12/02/20 Unknown Rx Naproxen 500 mg PO BID #20 tablet 12/02/20 Unknown Rx Allergies Allergy/AdvReac Type Severity Reaction Status Date / Time No Known Allergies Allergy Verified 08/28/20 16:26 ED Review of Systems ROS: Stated complaint: ABD PAIN, BACK PAIN Other details as noted in HPI Other: GENERAL: Negative for fever, chills, weight change, anorexia, fatigue. ENT: Negative for ear pain, difficulty hearing, sore throat, nasal congestion, epistaxis. CARDIOVASCULAR: Negative for chest pain, palpitations, lower extremity swelling. PULMONARY: Negative for cough, dyspnea, wheezing, orthopnea, cyanosis. GASTROINTESTINAL: Positive for abdominal pain. MUSCULOSKELETAL: Positive for left lower extremity pain. NEUROLOGICAL: Negative for headache, seizure, syncope, paresthesias, weakness. INTEGUMENTARY: Negative for erythema, rash, diaphoresis, laceration, ecchymosis. HEMATOLOGICAL: Negative for hemoptysis, hematemesis, hematochezia, hematuria. PSYCHIATRIC: Negative for hallucinations, suicidal ideation, homicidal ideation, anxiety, depression. ED Past Medical Hx - Past Medical History Previous Medical History?: Yes Hx Hypertension: Yes Hx CVA: No Hx Heart Attack/AMI: (denies heart attack,stated BLOCKAGE) Hx Congestive Heart Failure: No Hx Diabetes: Yes Hx Deep Vein Thrombosis: No Hx Pulmonary Embolism: No Hx GERD: Yes Hx Liver Disease: No Hx Renal Disease: No Hx Sickle Cell Disease: No Hx Arthritis: Yes (shoulders) Hx Headaches / Migraines: No Hx Seizures: No Hx Kidney Stones: No Hx Psychiatric Treatment: No Hx Asthma: No Hx COPD: No Hx Tuberculosis: No Hx Dementia: No Hx HIV: No Additional medical history: CAD, Bronchitis, herpes, colon CA - Surgical History Hx Coronary Stent: No Hx Open Heart Surgery: Yes (2012) Hx Pacemaker: No Hx Internal Defibrillator: No Hx Cholecystectomy: No Hx Appendectomy: No Hx Breast Surgery: No Additional Surgical History: Exploratory laparotomy with left hemicolectomy 02/13/2015. RIGHT AND LEFT Carotid endarterectomy,PORT to right upper chest- removed 2015; triple cardiac bypass surgery - Social History Smoking Status: Former Smoker Substance Use Type: None - Medications Home Medications: Home Medications Medication Instructions Recorded Confirmed Last Taken Type Aspirin [Aspirin BABY CHEW TAB] 81 mg PO DAILY 04/03/15 02/21/20 02/11/19 History hydroCHLOROthiazide 12.5 mg PO DAILY 07/09/19 02/21/20 Unknown History [Hydrochlorothiazide] Ascorbic Acid [Vitamin C] 500 mg PO QDAY 02/21/20 02/21/20 Unknown History Famotidine [Pepcid] 20 mg PO QDAY 02/21/20 02/21/20 Unknown History Losartan [Cozaar] 50 mg PO QHS 02/21/20 02/21/20 Unknown History Losartan [Cozaar] 100 mg PO QAM 02/21/20 02/21/20 Unknown History Simvastatin 20 mg PO QDAY 02/21/20 02/21/20 Unknown History amLODIPine 2.5 mg PO DAILY 02/21/20 02/21/20 Unknown History metFORMIN [Glucophage] 500 mg PO BID 02/21/20 02/21/20 Unknown History Clopidogrel [Plavix] 75 mg PO QDAY #30 tablet 02/22/20 Unknown Rx ISOSORBIDE MONOnitrate [Imdur ER] 30 mg PO QDAY #30 tablet 08/02/20 Unknown Rx Metoprolol [Lopressor TAB] 25 mg PO BID #60 tablet 08/02/20 Unknown Rx Butalb/Acetamin/Caff 50-325-40 1 tab PO Q6HR PRN #24 tab 08/28/20 Unknown Rx [Fioricet] Amlodipine Besylate [Norvasc] 5 mg PO DAILY #30 tablet 10/24/20 Unknown Rx cephALEXin [Keflex] 500 mg PO Q12HR 7 Days cap 11/10/20 Unknown Rx Lidocaine [Lidoderm] 1 each TP BID #20 adh..patch 12/02/20 Unknown Rx Naproxen 500 mg PO BID #20 tablet 12/02/20 Unknown Rx ED Physical Exam - General Limitations: No Limitations - Other Other exam information: General: Awake and alert. No acute distress. Head: Atraumatic, normocephalic. Eyes: EOMI. Pupils are equal and round. Normal sclera and conjunctiva. ENT: Oral mucosa is moist. Normal pharyngeal exam. Neck: Supple. No lymphadenopathy. Pulmonary: No respiratory distress. Clear to auscultation bilaterally. Cardiac: Regular rate and rhythm. Pulses are palpable and equal bilaterally. No lower extremity cyanosis or edema. Skin: Warm and dry. No rashes. Abdomen: Soft, non-protuberant. Left lower quadrant tenderness without guardi ng, rigidity, or rebound. Bowel sounds are normal. No organomegaly or masses noted. Back: Normal alignment. No CVA tenderness. Extremities: Symmetrical. Full range of motion intact. Patient reports intermittent pain to the lateral left thigh without reproducible tenderness. No overlying skin changes. Weightbearing and ambulatory without assistance. Distal neurovascular and motor/sensory function intact. No calf tenderness. Neurological: Alert and oriented, appropriately interactive, no focal deficits. Psych: Cooperative. Appropriate mood and affect. Speech is evenly metered. Thoughts are logically construed. ED Course Vital Signs 12/02/20 12/02/20 10:29 16:20 Temperature 98.4 F 98.6 F Pulse Rate 68 69 Respiratory 20 18 Rate Blood Pressure 168/66 182/63 O2 Sat by Pulse 100 98 Oximetry ED Medical Decision Making - Lab Data Result diagrams: 12/02/20 12:28 12/02/20 12:28 - Radiology Data [facility] [address] [place] [address] Cat Scan Report Signed Patient: DAISY ALONSO MR#: [id number] : 1955 Acct:[id number] Age/Sex: 65 / F ADM Date: 12/02/20 Loc: ED Attending Dr: Ordering Physician: LIVIA HURD Date of Service: 12/02/20 Procedure(s): CT abdomen pelvis w con Accession Number(s): [id number] cc: LIVIA HURD CT abdomen pelvis w con INDICATION: MAIN. TECHNIQUE: All CT scans at this location are performed using CT dose reduction for ALARA by means of automated exposure control. COMPARISON: 03/20/2020 FINDINGS: Lung bases are clear of acute disease. Liver is normal. Gallbladder, spleen, pancreas, kidneys and adrenals are negative. Abdominal aorta is normal in size. Moderate atherosclerosis. No retroperitoneal adenopathy. Pelvis Normal appendix. Urinary bladder is moderately distended. Uterus is slightly retroverted but otherwise unremarkable. No free fluid or inflammatory change. No significant bowel abnormalities. Bilateral sacroiliitis. No acute skeletal lesions. IMPRESSION: 1. No evidence of metastasis or other acute abnormality. Signer Name: Damon Liriano MD Signed: 12/02/2020 3:27 PM Workstation Name: [id number] Transcribed By: TM Dictated By: Damon Liriano MD Electronically Authenticated By: Damon Liriano MD Signed Date/Time: 12/02/20 1527 DD/ 151 TD/TT: - Medical Decision Making Differential diagnosis including but not limited to: pyelonephritis, nephrolith iasis, urinary tract infection, diverticulitis, metastatic disease On reevaluation, patient remains stable. Repeat abdominal exam is benign. She is afebrile, hemodynamically stable, ambulatory without assistance, tolerating oral intake without difficulty. Labs are unremarkable. Urinalysis without evidence of infection. Imaging of the abdomen/pelvis as well as the thigh were obtained due to patient's advanced age in the setting of prior cancer diagnosis; no acute process identified. Patient is low risk for DVT per Wells criteria. Patient is very compliant with her follow-up appointments and has already been in touch with her primary care provider regarding the symptoms. No clinical i ndication for further diagnostic work-up on an emergent basis at this time. Suspect the pain in patient's thigh is musculoskeletal in nature. Patient will be discharged home with appropriate analgesics and instructed to follow-up with her primary care provider as already arranged. Patient expressed understanding and is agreeable to plan of care. Strict return precautions provided. Repeat exam is unremarkable and benign. History, exam, diagnostic testing, and current condition do not suggest worrisome pathology to warrant further testing, continued ED treatment, admission, or surgical evaluation at this point. Given the low probability of a significant medical illness, it would be more likely to result in harm than benefit to perform further testing at this stage. Discussed findings, presumptive diagnosis, need for follow-up and specific signs/symptoms that should prompt immediate return to the emergency department. Instructions were explained in detail to the patient in addition to giving written discharge information. Patient expressed understanding and was given the opportunity to ask questions, all of which were satisfactorily answered prior to discharge home. Critical care attestation.: If time is entered above; I have spent that time in minutes in the direct care of this critically ill patient, excluding procedure time. ED Disposition Clinical Impression: Nonspecific abdominal pain, Left thigh pain Disposition: TO HOME OR SELFCARE Is pt being admited?: No Does the pt Need Aspirin: No Condition: Stable Instructions: Abdominal Pain, Adult, Abdominal Pain (ED) Additional Instructions: Take Tylenol every 4 hours as needed for pain. Take Naprosyn twice daily with food as needed for pain. Apply Lidoderm patches to affected area as needed for pain. Apply heat to affected area as needed for pain. Gradually advance physical activity slowly as tolerated. Follow-up with your primary care provider within 1 week. Call tomorrow to schedule an appointment. Return to the emergency department immediately for new or worsening symptoms. Prescriptions: Lidocaine [Lidoderm] 1 each TP BID #20 adh..patch Naproxen 500 mg PO BID #20 tablet Referrals: MARIELOS SOLORZANO MD [Primary Care Provider] - 3-5 Days Time of Disposition: 16:00
[2020-12-02 13:34] LABS: Basophils # (Auto) 0.1 K/mm3 (0.0-0.1); Basophils % (Auto) 1.1 % (0.0-1.8); Eosinophils # (Auto) 0.3 K/mm3 (0.0-0.4); Eosinophils % (Auto) 5.1 % (0.0-4.3); Hematocrit 34.6 % (30.3-42.9); Hemoglobin 11.4 gm/dl (10.1-14.3); Lymphocytes % (Auto) 16.9 % (13.4-35.0); Mean Corpuscular HGB Conc 33 % (30-34); Mean Corpuscular Volume 70 fl (79-97); Monocytes # (Auto) 0.5 K/mm3 (0.0-0.8); Monocytes % (Auto) 8.3 % (0.0-7.3); Platelet Count 317 K/mm3 (140-440); Red Blood Count 4.92 M/mm3 (3.65-5.03); Red Cell Distribution Width 16.9 % (13.2-15.2)
[2020-12-02 13:56] LABS: Alanine Aminotransferase 13 units/L (7-56); Albumin 4.2 g/dL (3.9-5); Blood Urea Nitrogen 11 mg/dL (7-17); Calcium 9.5 mg/dL (8.4-10.2); Hemolysis Index 3
--- NOTE | 2020-12-02 14:20 | XRay Report ---
LEFT FEMUR 2 VIEW(S) INDICATION / CLINICAL INFORMATION: nontraumatic thigh pain; hx cancer COMPARISON: Left hip radiograph 07/04/2020. FINDINGS: BONES / JOINT(S): No acute fracture or subluxation. Moderate tricompartmental arthrosis noted at the knee. Mild arthrosis noted of the left hip. SOFT TISSUES: Surgical clips and basilar calcifications are noted over the left lower extremity. ADDITIONAL FINDINGS: None. Signer Name: Richard Story MD Signed: 12/02/2020 2:15 PM Workstation Name: [id number]
[2020-12-02 14:25] LABS: BUN/Creatinine Ratio 18
--- NOTE | 2020-12-02 15:31 | Cat Scan Report ---
CT abdomen pelvis w con INDICATION: MAIN. TECHNIQUE: All CT scans at this location are performed using CT dose reduction for ALARA by means of automated e xposure control. COMPARISON: 03/20/2020 FINDINGS: Lung bases are clear of acute disease. Liver is normal. Gallbladder, spleen, pancreas, kidneys and ad renals are negative. Abdominal aorta is normal in size. Moderate atherosclerosis. No retroperitoneal adenopathy. Pelvis Normal appendix. Urinary bladder is moderately distended. Uterus is slightly retroverted but otherwis e unremarkable. No free fluid or inflammatory change. No significant bowel abnormalities. Bilateral sacroiliitis. No acute skeletal lesions. IMPRESSION: 1. No evidence of metastasis or other acute abnormality. Signer Name: Damon Liriano MD Signed: 12/02/2020 3:27 PM Workstation Name: [id number]
[2020-12-02 16:22] VITALS: BP 182/63
== END 2020-12-02 16:23 | disposition home or self-care (01) ==
LOC: ED 09:52
DX: R10.32 Left lower quadrant pain (principal); M79.652 Pain in left thigh; I10 Essential (primary) hypertension; E11.9 Type 2 diabetes mellitus without complications; K21.9 Gastro-esophageal reflux disease without esophagitis; Z98.890 Other specified postprocedural states; Z87.891 Personal history of nicotine dependence; Z79.84 Long term (current) use of oral hypoglycemic drugs; Z79.899 Other long term (current) drug therapy
CPT/HCPCS: 36415; 73552; 74177; 80053; 81001; 83690; 83735; 84703; 85025; 99284; Q9967

== ENCOUNTER 2021-05-26 10:40 | Outpatient (CLI) | payer MEDICARE ==
[2021-05-26 11:55] LABS: Blood Urea Nitrogen 10 mg/dL (7-17)
--- NOTE | 2021-05-26 16:11 | Cat Scan Report ---
CT chest with contrast INDICATION : History of malignant neoplasm of the descending colon. TECHNIQUE: 100 mL of intravenous contrast administered. All CT scans at this location are performed using CT dose reduction for ALARA by means of automated exposure control. COMPARISON: 12/02/2020, 03/20/2020. FINDINGS: Lungs are clear without evidence of focal pulmonary consolidation or edema. No discrete pulmonary mas s or nodule. No pleural effusion or pneumothorax. Stable postsurgical changes following suspected coronary artery bypass graft surgery. No evidence of pericardial effusion. No mediastinal or axillary lymphadenopathy. Osseous structures show no evidence acute fracture or aggressive osseous destructive lesion. Limited evaluation of the upper abdomen is unremarkable. IMPRESSION: No evidence of metastatic disease within the chest. No acute findings. Signer Name: Salvador Van MD Signed: 05/26/2021 4:06 PM Workstation Name: [id number]
--- NOTE | 2021-05-26 16:17 | Cat Scan Report ---
CT ABDOMEN AND PELVIS WITH CONTRAST HISTORY: History of malignant neoplasm of the descending colon. COMPARISON: 12/02/2020, 03/20/2020. TECHNIQUE: CT images of the abdomen and pelvis were obtained following administration of intravenous contrast. Oral contrast was also administered. All CT scans at this location are performed using CT d ose reduction for ALARA by means of automated exposure control. CONTRAST: 100 ml of intravenous contrast administered. FINDINGS: Anastomosis within the proximal descending colon is again noted and not significantly changed. No foc al bowel wall thickening. No pathologically enlarged lymph nodes. Extensive atherosclerotic calcifications throughout the abdominal aorta and its major branch vessels with apparent marked stenosis at the proximal left common iliac artery. A fusiform aneurysm measuring up to 2.4 cm in the infrarenal aorta, just proximal to the bifurcation extends up to 3.8 cm in length, not significantly changed. The liver, kidneys, spleen, pancreas, adrenal glands, and gallbladder are unremarkable. Gastrointesti nal tract shows no evidence of bowel wall thickening or pathologic distention. There are no pathologi gutierrez enlarged lymph nodes. No free intraperitoneal gas or fluid. The appendix is visualized and is normal in appearance. Urinary bladder is unremarkable. Osseous structures show no evidence of acute fracture or aggressive osseous destructive lesion. IMPRESSION: No evidence of residual or recurrent malignancy within the abdomen and pelvis. No new acute findings. Extensive atherosclerotic calcifications throughout the abdominal aorta and its major branch vessels with apparent marked stenosis at proximal left common iliac artery. 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 Signer Name: Salvador Van MD Signed: 05/26/2021 4:12 PM Workstation Name: [id number]
== END 2021-05-26 10:41 | disposition home or self-care (01) ==
LOC: CT 10:40
PROVIDERS: ATTEND Internal Medicine Hematology & Oncology
DX: C18.6 Malignant neoplasm of descending colon (principal); I70.0 Atherosclerosis of aorta; M54.6 Pain in thoracic spine
CPT/HCPCS: 36415; 71260; 74177; 82565; 84520; Q9967

== ENCOUNTER 2021-09-09 14:52 | Outpatient (CLI) | payer MEDICARE ==
--- NOTE | 2021-09-09 17:06 | Mammography Report ---
DIGITAL SCREENING MAMMOGRAM WITH CAD, 09/09/2021 CLINICAL INFORMATION / INDICATION: Routine screening mammography. SCREENING MAMMO TECHNIQUE: Digital bilateral 2D mammography was obtained in the craniocaudal and mediolateral obliqu e projections. This examination was interpreted with the benefit of Computer-Aided Detection analysis . COMPARISON: 08/02/19, 07/21/18 FINDINGS: Breast Density: There are scattered areas of fibroglandular density. No dominant mass, suspicious calcifications, or architectural distortion in either breast. IMPRESSION: No mammographic evidence of malignancy. Follow up recommendation: Routine yearly BI-RADS Category 1: NEGATIVE A "normal" or negative report should not discourage follow up or biopsy of a clinically significant f inding. A written summary of these findings will be mailed to the patient. The patient will be entered into a mammography reporting system which will generate a reminder letter for the patient's next appointmen t at the appropriate interval. [employer] recommends yearly mammograms starting at age 40 and continuing as l carlos as a woman is in good health. Breast MRI is recommended for women with an approximate 20-25% or greater lifetime risk of breast cancer, including women with a strong family history of breast or ova jose e cancer or who have been treated for Hodgkin's disease. Signer Name: Michael Elliott MD Signed: 09/09/2021 5:01 PM Workstation Name: [id number]
== END 2021-09-09 14:53 | disposition home or self-care (01) ==
LOC: SPVWC 14:52
PROVIDERS: ATTEND Physician Assistant
DX: Z12.31 Encounter for screening mammogram for malignant neoplasm of breast (principal)
CPT/HCPCS: 77067

== ENCOUNTER 2021-10-21 10:51 | Emergency (ER) | payer MEDICARE ==
[2021-10-21 11:47] LABS: Bilirubin,Urine NEG (Negative); Blood,Urine SM (Negative); Color,Urine Yellow (Yellow); Mucus,Urine FEW /HPF; Protein,Urine <15 mg/dL mg/dL (Negative); Urobilinogen,Urine < 2.0 mg/dL (<2.0)
--- NOTE | 2021-10-21 12:22 | Emergency Department Report ---
ED General Adult HPI - General Chief complaint: Urogenital-Female Stated complaint: BLADDER PAIN PUI?: No Time Seen by Provider: 10/21/21 12:03 Source: patient Mode of arrival: Ambulatory Limitations: No Limitations - History of Present Illness Onset/Timin -: days(s) Location: right (flank ) Radiation: abdomen Severity scale (0 -10): 8 Quality: aching, sharp, dull Consistency: intermittent Associated Symptoms: denies: chest pain, cough, fever/chills, nausea/vomiting, rash Treatments Prior to Arrival: none - Related Data Home Medications Medication Instructions Recorded Confirmed Last Taken Aspirin [Aspirin BABY CHEW TAB] 81 mg PO DAILY 04/03/15 02/21/20 02/11/19 hydroCHLOROthiazide 12.5 mg PO DAILY 07/09/19 02/21/20 Unknown [Hydrochlorothiazide] Ascorbic Acid [Vitamin C] 500 mg PO QDAY 02/21/20 02/21/20 Unknown Famotidine [Pepcid] 20 mg PO QDAY 02/21/20 02/21/20 Unknown Losartan [Cozaar] 50 mg PO QHS 02/21/20 02/21/20 Unknown Losartan [Cozaar] 100 mg PO QAM 02/21/20 02/21/20 Unknown Simvastatin 20 mg PO QDAY 02/21/20 02/21/20 Unknown amLODIPine 2.5 mg PO DAILY 02/21/20 02/21/20 Unknown metFORMIN [Glucophage] 500 mg PO BID 02/21/20 02/21/20 Unknown Previous Rx's Medication Instructions Recorded Last Taken Type Clopidogrel [Plavix] 75 mg PO QDAY #30 tablet 02/22/20 Unknown Rx ISOSORBIDE MONOnitrate [Imdur ER] 30 mg PO QDAY #30 tablet 08/02/20 Unknown Rx Metoprolol [Lopressor TAB] 25 mg PO BID #60 tablet 08/02/20 Unknown Rx Butalb/Acetamin/Caff 50-325-40 1 tab PO Q6HR PRN #24 tab 08/28/20 Unknown Rx [Fioricet] Amlodipine Besylate [Norvasc] 5 mg PO DAILY #30 tablet 10/24/20 Unknown Rx cephALEXin [Keflex] 500 mg PO Q12HR 7 Days cap 11/10/20 Unknown Rx Lidocaine [Lidoderm] 1 each TP BID #20 adh..patch 12/02/20 Unknown Rx Naproxen 500 mg PO BID #20 tablet 12/02/20 Unknown Rx Cefdinir 300 mg PO BID 10 Days #20 cap 10/21/21 Unknown Rx Allergies Allergy/AdvReac Type Severity Reaction Status Date / Time No Known Allergies Allergy Verified 08/28/20 16:26 ED Review of Systems ROS: Stated complaint: BLADDER PAIN Other details as noted in HPI Constitutional: denies: chills, fever Eyes: denies: eye pain, eye discharge, vision change ENT: denies: ear pain, throat pain Respiratory: denies: cough, shortness of breath, wheezing Cardiovascular: denies: chest pain, palpitations Endocrine: no symptoms reported Gastrointestinal: other (right flank pain ). denies: abdominal pain, nausea, diarrhea Genitourinary: urgency, frequency. denies: dysuria, discharge Musculoskeletal: denies: back pain, joint swelling, arthralgia Skin: denies: rash, lesions Neurological: denies: headache, weakness, paresthesias Psychiatric: denies: anxiety, depression Hematological/Lymphatic: denies: easy bleeding, easy bruising ED Past Medical Hx - Past Medical History Hx Hypertension: Yes Hx CVA: No Hx Heart Attack/AMI: (denies heart attack,stated BLOCKAGE) Hx Congestive Heart Failure: No Hx Diabetes: Yes Hx Deep Vein Thrombosis: No Hx Pulmonary Embolism: No Hx GERD: Yes Hx Liver Disease: No Hx Renal Disease: No Hx Sickle Cell Disease: No Hx Arthritis: Yes (shoulders) Hx Headaches / Migraines: No Hx Seizures: No Hx Kidney Stones: No Hx Psychiatric Treatment: No Hx Asthma: No Hx COPD: No Hx Tuberculosis: No Hx Dementia: No Hx HIV: No Additional medical history: CAD, Bronchitis, herpes, colon CA - Surgical History Hx Coronary Stent: No Hx Open Heart Surgery: Yes (2012) Hx Pacemaker: No Hx Internal Defibrillator: No Hx Cholecystectomy: No Hx Appendectomy: No Hx Breast Surgery: No Additional Surgical History: Exploratory laparotomy with left hemicolectomy 02/13/2015. RIGHT AND LEFT Carotid endarterectomy,PORT to right upper chest- removed 2015; triple cardiac bypass surgery - Social History Smoking Status: Former Smoker Substance Use Type: None - Medications Home Medications: Home Medications Medication Instructions Recorded Confirmed Last Taken Type Aspirin [Aspirin BABY CHEW TAB] 81 mg PO DAILY 04/03/15 02/21/2002/11/19 History hydroCHLOROthiazide 12.5 mg PO DAILY 07/09/19 02/21/20 Unknown History [Hydrochlorothiazide] Ascorbic Acid [Vitamin C] 500 mg PO QDAY 02/21/20 02/21/20 Unknown History Famotidine [Pepcid] 20 mg PO QDAY 02/21/20 02/21/20 Unknown History Losartan [Cozaar] 50 mg PO QHS 02/21/20 02/21/20 Unknown History Losartan [Cozaar] 100 mg PO QAM 02/21/20 02/21/20 Unknown History Simvastatin 20 mg PO QDAY 02/21/20 02/21/20 Unknown History amLODIPine 2.5 mg PO DAILY 02/21/20 02/21/20 Unknown History metFORMIN [Glucophage] 500 mg PO BID 02/21/20 02/21/20 Unknown History Clopidogrel [Plavix] 75 mg PO QDAY #30 tablet 02/22/20 Unknown Rx ISOSORBIDE MONOnitrate [Imdur ER] 30 mg PO QDAY #30 tablet 08/02/20 Unknown Rx Metoprolol [Lopressor TAB] 25 mg PO BID #60 tablet 08/02/20 Unknown Rx Butalb/Acetamin/Caff 50-325-40 1 tab PO Q6HR PRN #24 tab 08/28/20 Unknown Rx [Fioricet] Amlodipine Besylate [Norvasc] 5 mg PO DAILY #30 tablet 10/24/20 Unknown Rx cephALEXin [Keflex] 500 mg PO Q12HR 7 Days cap 11/10/20 Unknown Rx Lidocaine [Lidoderm] 1 each TP BID #20 adh..patch 12/02/20 Unknown Rx Naproxen 500 mg PO BID #20 tablet 12/02/20 Unknown Rx Cefdinir 300 mg PO BID 10 Days #20 cap 10/21/21 Unknown Rx ED Physical Exam - General Limitations: No Limitations General appearance: alert, in no apparent distress - Head Head exam: Present: atraumatic, normocephalic - Eye Eye exam: Present: normal appearance - ENT ENT exam: Present: mucous membranes moist - Neck Neck exam: Present: normal inspection - Respiratory Respiratory exam: Present: normal lung sounds bilaterally. Absent: respiratory distress - Cardiovascular Cardiovascular Exam: Present: regular rate, normal rhythm. Absent: systolic murmur, diastolic murmur, rubs, gallop - GI/Abdominal GI/Abdominal exam: Present: soft, normal bowel sounds, other (right flank t enderness , negative CVA tenderness). Absent: distended, guarding - Extremities Exam Extremities exam: Present: normal inspection - Back Exam Back exam: Present: normal inspection - Neurological Exam Neurological exam: Present: alert, oriented X3 - Psychiatric Psychiatric exam: Present: normal affect, normal mood - Skin Skin exam: Present: warm, dry, intact, normal color. Absent: rash ED Course Vital Signs 10/21/21 10/21/21 10/21/21 11:18 11:39 16:07 Temperature 98.5 F Pulse Rate 62 66 Respiratory 16 16 16 Rate Blood Pressure 166/48 Blood Pressure 140/62 150/70 [Left] O2 Sat by Pulse 98 100 99 Oximetry ED Medical Decision Making - Lab Data Result diagrams: 10/21/21 12:03 10/21/21 12:03 - Radiology Data Radiology results: report reviewed CT with no acute process noted. see report for detail report. - Medical Decision Making 66-year-old female with extensive cardiac history including triple bypass, bilateral carotid artery occlusions x2, hypertension, diabetes reports to the ER with complaints of right flank pain with urinary urgency and frequency, that has been intermittent for about 4 to 5 days. Denies blood in urine. Patient denies chest pain, weakness, shortness of breath, headaches, dizziness. VVS CT with contrast of abdominal pelviswas negative for any acute process. No kidney stones reported in CT report CBC and CMP are negative for any acute process. UA cloudy with WBC of 127, moderate leukocytes, negative for nitrites. Patient will be treated for acute UTI and to be sent home with oral antibiotics with follow-up with her PCP within 1 week to ensure her UTI has cleared. No further work-up needed at this moment as blood work and CT revealed no acute process. UA reveals urinary tract infection likely causing urinary frequency, urgency, right flank pain. Patient agrees with plan of care and verbalizes understanding. Vital Signs 10/21/21 10/21/21 10/21/21 11:18 11:39 16:07 Temperature 98.5 F Pulse Rate 62 66 Respiratory 16 16 16 Rate Blood Pressure 166/48 Blood Pressure 140/62 150/70 [Left] O2 Sat by Pulse 98 100 99 Oximetry Lab Results 0410/21/21 10/21/21 Range/Units 11:09 12:03 12:03 WBC 6.4 (4.5-11.0) K/mm3 RBC 4.74 (3.65-5.03) M/mm3 Hgb 10.7 (10.1-14.3) gm/dl Hct 33.4 (30.3-42.9) % MCV 71 L (79-97) fl MCH 23 L (28-32) pg MCHC 32 (30-34) % RDW 15.4 H (13.2-15.2) % Plt Count 315 (140-440) K/mm3 Sodium 137 (137-145) mmol/L Potassium 4.0 (3.6-5.0) mmol/L Chloride 103.4 (98-107) mmol/L Carbon Dioxide 23 (22-30) mmol/L Anion Gap 15 mmol/L BUN 14 (7-17) mg/dL Creatinine 0.8 (0.6-1.2) mg/dL Estimated GFR > 60 ml/min BUN/Creatinine Ratio 18 % Glucose 107 H (65-100) mg/dL Calcium 9.3 (8.4-10.2) mg/dL Total Bilirubin 0.30 (0.1-1.2) mg/dL AST 21 (5-40) units/L ALT 12 (7-56) units/L Alkaline Phosphatase 86 (35-129) units/L Total Protein 7.3 (6.3-8.2) g/dL Albumin 3.9 (3.9-5) g/dL Albumin/Globulin Ratio 1.1 % Urine Color Yellow (Yellow) Urine Turbidity Slightly-cloudy (Clear) Urine pH 6.0 (5.0-7.0) Ur Specific [place] 1.012 (1.003-1.030) Urine Protein <15 mg/dl (Negative) mg/dL Urine Glucose (UA) Neg (Negative) mg/dL Urine Ketones Neg (Negative) mg/dL Urine Blood Sm (Negative) Urine Nitrite Neg (Negative) Urine Bilirubin Neg (Negative) Urine Urobilinogen < 2.0 (<2.0) mg/dL Ur Leukocyte Esterase Mod (Negative) Urine WBC (Auto) 127.0 H (0.0-6.0) /HPF Urine RBC (Auto) 16.0 (0.0-6.0) /HPF U Epithel Cells (Auto) 7.0 (0-13.0) /HPF Urine WBC Clumps 1+ /HPF Urine Mucus Few /HPF Urine Yeast (Budding) 1+ /HPF Critical care attestation.: If time is entered above; I have spent that time in minutes in the direct care of this critically ill patient, excluding procedure time. ED Disposition Clinical Impression: UTI (urinary tract infection), bacterial Disposition: HOME / SELF CARE / HOMELESS Is pt being admited?: No Does the pt Need Aspirin: No Condition: Stable Instructions: Urinary Tract Infection, Adult, [id number], Urinary Tract Infection, Adult, Antibiotic Medicine, Adult Prescriptions: Cefdinir 300 mg PO BID 10 Days #20 cap Referrals: MARIELOS SOLORZANO MD [Primary Care Provider] - 3-5 Days Print Language: TAJIK
[2021-10-21 12:33] LABS: Alanine Aminotransferase 12 units/L (7-56); Albumin 3.9 g/dL (3.9-5); BUN/Creatinine Ratio 18; Blood Urea Nitrogen 14 mg/dL (7-17); Calcium 9.3 mg/dL (8.4-10.2); Hemolysis Index 17
[2021-10-21 12:53] LABS: Hematocrit 33.4 % (30.3-42.9); Hemoglobin 10.7 gm/dl (10.1-14.3); Mean Corpuscular HGB Conc 32 % (30-34); Mean Corpuscular Volume 71 fl (79-97); Platelet Count 315 K/mm3 (140-440); Red Blood Count 4.74 M/mm3 (3.65-5.03); Red Cell Distribution Width 15.4 % (13.2-15.2)
--- NOTE | 2021-10-21 13:07 | Cat Scan Report ---
CT ABDOMEN AND PELVIS WITHOUT CONTRAST INDICATION / CLINICAL INFORMATION: right flank pain. TECHNIQUE: Axial CT images were obtained through the abdomen and pelvis without IV contrast. All CT scans at this location are performed using CT dose reduction for ALARA by means of automated exposure control. COMPARISON: 05/26/2021. FINDINGS: LOWER CHEST: No significant abnormality. LIVER: No significant abnormality. GALLBLADDER: No significant abnormality. BILE DUCTS: No significant abnormality. PANCREAS: No significant abnormality. SPLEEN: No significant abnormality. ADRENALS: No significant abnormality. RIGHT KIDNEY / URETER: No significant abnormality. LEFT KIDNEY / URETER: No significant abnormality. STOMACH / SMALL BOWEL: No significant abnormality. COLON: No significant abnormality. APPENDIX: No significant abnormality. PERITONEUM: No free fluid. No free air. No fluid collection. LYMPH NODES: No significant adenopathy. VASCULAR STRUCTURES: Atherosclerotic ectasia of the aorta and iliac system is unchanged. URINARY BLADDER: No significant abnormality. REPRODUCTIVE ORGANS: No significant abnormality. ADDITIONAL FINDINGS: Small fat-containing ventral hernia. Mild eventration of the anterior abdominal wall SKELETAL SYSTEM: Mild anterolisthesis L4 4 on L5. IMPRESSION: Negative for obstruction or localized inflammation. Signer Name: Donnie Coronel MD Signed: 10/21/2021 1:02 PM Workstation Name: [id number]
[2021-10-21 16:07] VITALS: BP 150/70
== END 2021-10-21 16:07 | disposition home or self-care (01) ==
LOC: ED 10:51
DX: N39.0 Urinary tract infection, site not specified (principal); B96.89 Other specified bacterial agents as the cause of diseases classified elsewhere; Z87.891 Personal history of nicotine dependence; E11.8 Type 2 diabetes mellitus with unspecified complications; I10 Essential (primary) hypertension
CPT/HCPCS: 36415; 74176; 80053; 81001; 85027; 99284

== ENCOUNTER 2022-01-22 09:45 | Emergency (ER) | payer MEDICARE ==
--- NOTE | 2022-01-22 12:28 | Emergency Department Report ---
ED Abdominal Pain HPI - General Chief Complaint: Back Pain/Injury Stated Complaint: LOWER LEFT SIDE BACK PAIN Time Seen by Provider: 01/22/22 09:58 Source: patient Mode of arrival: Ambulatory Limitations: No Limitations - History of Present Illness Initial Comments: 66-year-old female presents emerged department complaining of going to sleep and waking up with left flank pain of unknown etiology pain is worse when she takes a deep breath but she reports no associated with with urination. She states no hematuria, no dysuria, no fever, chills, sweats. She reports no nausea, no vomiting, no constipation, no diarrhea. She reports no rashes. States that she does not recall any injury preceding the symptoms. MD Complaint: abdominal pain -: Gradual, Sudden Radiation: none Migration to: no migration Severity: mild Consistency: constant Improves With: nothing Worsens With: nothing Associated Symptoms: denies: vomiting, diarrhea, constipation, dysuria, hematemesis, hematuria, anorexia - Related Data Home Medications Medication Instructions Recorded Confirmed Last Taken Aspirin [Aspirin BABY CHEW TAB] 81 mg PO DAILY 04/03/15 02/21/20 02/11/19 hydroCHLOROthiazide 12.5 mg PO DAILY 07/09/19 02/21/20 Unknown [Hydrochlorothiazide] Ascorbic Acid [Vitamin C] 500 mg PO QDAY 02/21/20 02/21/20 Unknown Famotidine [Pepcid] 20 mg PO QDAY 02/21/20 02/21/20 Unknown Losartan [Cozaar] 50 mg PO QHS 02/21/20 02/21/20 Unknown Losartan [Cozaar] 100 mg PO QAM 02/21/20 02/21/20 Unknown Simvastatin 20 mg PO QDAY 02/21/20 02/21/20 Unknown amLODIPine 2.5 mg PO DAILY 02/21/20 02/21/20 Unknown metFORMIN [Glucophage] 500 mg PO BID 02/21/20 02/21/20 Unknown Previous Rx's Medication Instructions Recorded Last Taken Type Clopidogrel [Plavix] 75 mg PO QDAY #30 tablet 02/22/20 Unknown Rx ISOSORBIDE MONOnitrate [Imdur ER] 30 mg PO QDAY #30 tablet 08/02/20 Unknown Rx Metoprolol [Lopressor TAB] 25 mg PO BID #60 tablet 08/02/20 Unknown Rx Butalb/Acetamin/Caff 50-325-40 1 tab PO Q6HR PRN #24 tab 08/28/20 Unknown Rx [Fioricet] Amlodipine Besylate [Norvasc] 5 mg PO DAILY #30 tablet 10/24/20 Unknown Rx cephALEXin [Keflex] 500 mg PO Q12HR 7 Days cap 11/10/20 Unknown Rx Lidocaine [Lidoderm] 1 each TP BID #20 adh..patch 12/02/20 Unknown Rx Naproxen 500 mg PO BID #20 tablet 12/02/20 Unknown Rx Cefdinir 300 mg PO BID 10 Days #20 cap 10/21/21 Unknown Rx Hyoscyamine Subl [Levsin Sl 0.125 0.125 mg SL Q6HR PRN #20 tab 01/22/22 Unknown Rx TAB] Nitrofurantoin [place]/M-Cryst 100 mg PO Q12HR #20 capsule 01/22/22 Unknown Rx [Macrobid CAP] Ondansetron [Zofran ODT TAB] 8 mg PO Q12HR #20 tab.rapdis 01/22/22 Unknown Rx Allergies Allergy/AdvReac Type Severity Reaction Status Date / Time No Known Allergies Allergy Verified 08/28/20 16:26 ED Review of Systems ROS: Stated complaint: LOWER LEFT SIDE BACK PAIN Other details as noted in HPI Comment: All other systems reviewed and negative ED Past Medical Hx - Past Medical History Hx Hypertension: Yes Hx CVA: No Hx Heart Attack/AMI: (denies heart attack,stated BLOCKAGE) Hx Congestive Heart Failure: No Hx Diabetes: Yes Hx Deep Vein Thrombosis: No Hx Pulmonary Embolism: No Hx GERD: Yes Hx Liver Disease: No Hx Renal Disease: No Hx Sickle Cell Disease: No Hx Arthritis: Yes (shoulders) Hx Headaches / Migraines: No Hx Seizures: No Hx Kidney Stones: No Hx Psychiatric Treatment: No Hx Asthma: No Hx COPD: No Hx Tuberculosis: No Hx Dementia: No Hx HIV: No Additional medical history: CAD, Bronchitis, herpes, colon CA - Surgical History Hx Coronary Stent: No Hx Open Heart Surgery: Yes (2012) Hx Pacemaker: No Hx Internal Defibrillator: No Hx Cholecystectomy: No Hx Appendectomy: No Hx Breast Surgery: No Additional Surgical History: Exploratory laparotomy with left hemicolectomy 02/13/2015. RIGHT AND LEFT Carotid endarterectomy,PORT to right upper chest- removed 2015; triple cardiac bypass surgery - Social History Smoking Status: Former Smoker Substance Use Type: None - Medications Home Medications: Home Medications Medication Instructions Recorded Confirmed Last Taken Type Aspirin [Aspirin BABY CHEW TAB] 81 mg PO DAILY 04/03/15 02/21/20 02/11/19 History hydroCHLOROthiazide 12.5 mg PO DAILY 07/09/19 02/21/20 Unknown History [Hydrochlorothiazide] Ascorbic Acid [Vitamin C] 500 mg PO QDAY 02/21/20 02/21/20 Unknown History Famotidine [Pepcid] 20 mg PO QDAY 02/21/20 02/21/20 Unknown History Losartan [Cozaar] 50 mg PO QHS 02/21/20 02/21/20 Unknown History Losartan [Cozaar] 100 mg PO QAM 02/21/20 02/21/20 Unknown History Simvastatin 20 mg PO QDAY 02/21/20 02/21/20 Unknown History amLODIPine 2.5 mg PO DAILY 02/21/20 02/21/20 Unknown History metFORMIN [Glucophage] 500 mg PO BID 02/21/20 02/21/20 Unknown History Clopidogrel [Plavix] 75 mg PO QDAY #30 tablet 02/22/20 Unknown Rx ISOSORBIDE MONOnitrate [Imdur ER] 30 mg PO QDAY #30 tablet 08/02/20 Unknown Rx Metoprolol [Lopressor TAB] 25 mg PO BID #60 tablet 08/02/20 Unknown Rx Butalb/Acetamin/Caff 50-325-40 1 tab PO Q6HR PRN #24 tab 08/28/20 Unknown Rx [Fioricet] Amlodipine Besylate [Norvasc] 5 mg PO DAILY #30 tablet 10/24/20 Unknown Rx cephALEXin [Keflex] 500 mg PO Q12HR 7 Days cap 11/10/20 Unknown Rx Lidocaine [Lidoderm] 1 each TP BID #20 adh..patch 12/02/20 Unknown Rx Naproxen 500 mg PO BID #20 tablet 12/02/20 Unknown Rx Cefdinir 300 mg PO BID 10 Days #20 cap 10/21/21 Unknown Rx Hyoscyamine Subl [Levsin Sl 0.125 0.125 mg SL Q6HR PRN #20 tab 01/22/22 Unknown Rx TAB] Nitrofurantoin [place]/M-Cryst 100 mg PO Q12HR #20 capsule 01/22/22 Unknown Rx [Macrobid CAP] Ondansetron [Zofran ODT TAB] 8 mg PO Q12HR #20 tab.rapdis 01/22/22 Unknown Rx ED Physical Exam - General Limitations: No Limitations General appearance: alert, in no apparent distress - Head Head exam: Present: atraumatic, normocephalic - Eye Eye exam: Present: normal appearance, PERRL, EOMI Pupils: Present: normal accommodation - ENT ENT exam: Present: normal exam, normal orophraynx, mucous membranes moist - Neck Neck exam: Present: normal inspection - Respiratory Respiratory exam: Present: normal lung sounds bilaterally. Absent: respiratory distress - Cardiovascular Cardiovascular Exam: Present: regular rate, normal rhythm. Absent: systolic murmur, diastolic murmur, rubs, gallop - GI/Abdominal GI/Abdominal exam: Present: soft, normal bowel sounds - Extremities Exam Extremities exam: Present: normal inspection - Back Exam Back exam: Present: normal inspection - Neurological Exam Neurological exam: Present: alert, oriented X3 - Psychiatric Psychiatric exam: Present: normal affect, normal mood - Skin Skin exam: Present: warm, dry, intact, normal color. Absent: rash ED Course Vital Signs 01/22/22 09:52 Temperature 97.8 F Pulse Rate 62 Respiratory 16 Rate Blood Pressure 148/60 [Left] O2 Sat by Pulse 100 Oximetry ED Medical Decision Making - Lab Data Result diagrams: 01/22/22 12:20 01/22/22 12:20 Critical care attestation.: If time is entered above; I have spent that time in minutes in the direct care of this critically ill patient, excluding procedure time. ED Disposition Clinical Impression: Flank pain, Abdominal pain Disposition: 01 HOME / SELF CARE / HOMELESS Is pt being admited?: No Does the pt Need Aspirin: No Condition: Stable Instructions: Abdominal Pain, Adult, [id number], Flank Pain, Adult, [id number] Prescriptions: Hyoscyamine Subl [Levsin Sl 0.125 TAB] 0.125 mg SL Q6HR PRN #20 tab PRN Reason: abd paih Nitrofurantoin [place]/M-Cryst [Macrobid CAP] 100 mg PO Q12HR #20 capsule Ondansetron [Zofran ODT TAB] 8 mg PO Q12HR #20 [email or web address] Referrals: MARIELOS SOLORZANO MD [Primary Care Provider] - 3-5 Days
[2022-01-22 13:42] LABS: Blood Urea Nitrogen 11 mg/dL (7-17); Calcium 9.4 mg/dL (8.4-10.2); Hemolysis Index 1
[2022-01-22 14:04] LABS: BUN/Creatinine Ratio 18
[2022-01-22 14:37] LABS: Basophils # (Auto) 0.1 K/mm3 (0.0-0.1); Basophils % (Auto) 0.8 % (0.0-1.8); Eosinophils # (Auto) 0.2 K/mm3 (0.0-0.4); Eosinophils % (Auto) 2.7 % (0.0-4.3); Hemoglobin 11.1 gm/dl (10.1-14.3); Lymphocytes # (Auto) 0.9 K/mm3 (1.2-5.4); Lymphocytes % (Auto) 13.3 % (13.4-35.0); Mean Corpuscular HGB Conc 32 % (30-34); Monocytes # (Auto) 0.5 K/mm3 (0.0-0.8); Monocytes % (Auto) 7.2 % (0.0-7.3); Platelet Count 319 K/mm3 (140-440); Red Blood Count 5.03 M/mm3 (3.65-5.03); Red Cell Distribution Width 15.7 % (13.2-15.2)
[2022-01-22 15:00] LABS: Mean Corpuscular Volume 70 fl (79-97)
[2022-01-22] MEDS ORDERED: HYDROcodone/ACETAMINOPHEN 5-325 MG TAB PO STA (16:39)
[2022-01-22 18:39] VITALS: BP 142/62
[2022-01-22 19:34] LABS: Bilirubin,Urine Negative (Negative); Blood,Urine Negative (Negative); Color,Urine Straw (Yellow); Protein,Urine <15 mg/dL mg/dL (Negative); Urobilinogen,Urine < 2.0 mg/dL (<2.0)
== END 2022-01-22 18:38 | disposition home or self-care (01) ==
LOC: ED 09:45
DX: R10.9 Unspecified abdominal pain (principal); I10 Essential (primary) hypertension; E11.9 Type 2 diabetes mellitus without complications; K21.9 Gastro-esophageal reflux disease without esophagitis; M19.90 Unspecified osteoarthritis, unspecified site; Z98.890 Other specified postprocedural states; Z87.891 Personal history of nicotine dependence; Z79.899 Other long term (current) drug therapy
CPT/HCPCS: 36415; 80048; 81001; 85025; 99283